=== PATIENT | male | born 1955 | race Caucasian/White ===

== ENCOUNTER 2019-05-22 21:00 | Inpatient (IN) | payer MEDICARE ==
[~2019-05-22] VITALS: Ht 170.2 cm; Wt 102.1 kg
[2019-05-22 21:10] VITALS: BP 141/49
--- NOTE | 2019-05-22 21:33 | Emergency Room Report ---
History of Present Illness General Chief Complaint: Altered Level of Consciousness Source: EMS Present Illness HPI Disclaimer: Please note that this report is being documented using [employer] technology. This can lead to erroneous entry secondary to incorrect interpretation by the dictating instrument. HPI: 63-year-old male presents for altered mental status. EMS was called by patient's . She told them that he has been altered since this morning. Increasingly more confused. She found him on the ground having apparently rolled off of his bed prior to arrival. He is normally alert and oriented x3. He currently moaning incomprehensively though can follow some commands. He has a abrasion over the left side of his forehead but this appears to be healing and old possibly from prior injury. denied any recent fever, vomiting, diarrhea or complaints of pain or discomfort. Cannot obtain any history from patient. PMH: Cannot obtain from patient PSH: Cannot obtain from patient Allergies: Cannot obtain from patient Social Hx: Cannot obtain from patient COVID-19 risk:Contact w/high r: No COVID-19 risk:Travel to affect: No Has patient experienced chapin: No Allergies: Coded Allergies: No Known Allergies (Unverified , 05/22/19) Nursing Documentation-PMH Hx Hypertension: Yes Hx Diabetes: Yes Review of Systems All Other Systems: limited - Cannot obtain from patient Physical Exam Vital Signs Date Time Temp Pulse Resp B/P (MAP) Pulse Ox O2 Delivery O2 Flow Rate FiO2 05/22/19 21:01 97.5 118 18 141/49 (79) 97 Room Air General: Awake, following some commands, moaning incomprehensively, afebrile HEENT: Normocephalic. Abrasion over the left forehead appears to be healing. No acute appearing wounds, lacerations or abrasions. EOMI. anicteric sclera. Dry mucous membranes Neck: Supple, trachea midline Chest Wall: No tenderness, no deformity Cardiovascular: Tachycardic. S1 and S2 normal. No murmur appreciated Resp: Normal work of breathing. No cough, wheezing or crackles appreciated Abdomen: Abdomen is soft, nondistended. Nontender Skin: Intact. Healing abrasion over the left side of the forehead MSK: Normal tone and bulk. Moving all extremities. No obvious deformity. Neuro: Awake, oriented to self. Can follow some simple commands. Not responding verbally. Moaning mostly. Back/Spine: No midline tenderness in the cervical, thoracic or lumbosacral spine. Procedures Critical Care Time Critical Care Time Total critical care time: Approximately 45 minutes Due to a high probability of clinically significant, life threatening deterioration, the patient required the highest level of preparedness to intervene emergently and I personally spent this critical care time directly and personally managing the patient. This critical care time included obtaining a history, examining the patient, pulse oximetry, ordering and reviewing studies , ordering treatments, evaluating response to treatment and updating management plan as needed, frequent reassessment and discussion with other providers as well as arranging for ultimate disposition. This critical to care time was performed to assess and manage the high probability of life-threatening deterioration that could result in multiorgan failure. This critical care time is separate from the separately billable procedures and treating other patients. Medical Decision Making Diagnostic Impression: Primary Impression: Sepsis Additional Impressions: Rhabdomyolysis Elevated LFTs Skin ulcer Substance abuse AMS (altered mental status) ER Course 63-year-old male presents for evaluation of altered mental status. Differential includes was not limited to sepsis, encephalopathy, intoxication, toxicology, electrolyte abnormality, dehydration. Start a broad metabolic infectious toxicologic work-up. He will require a CT scan of the head given the abrasion over the left side of the forehead. Starting 30 cc/kg sepsis bolus. Patient will require admission. Laboratory Tests Test 05/22/19 21:30 05/22/19 22:31 White Blood Count 27.7 K/UL (4.8-10.8) *H Red Blood Count 6.18 M/UL (4.70-6.10) H Hemoglobin 17.5 G/DL (14.2-18.0) Hematocrit 54.7 % (42.0-52.0) H Mean Corpuscular Volume 89 FL (80-99) Mean Corpuscular Hemoglobin 28.4 PG (27.0-31.0) Mean Corpuscular Hemoglobin Concent 32.1 G/DL (32.0-36.0) Red Cell Distribution Width 14.2 % (11.6-14.8) Platelet Count 680 K/UL (150-450) H Mean Platelet Volume 6.4 FL (6.5-10.1) L Neutrophils (%) (Auto) % (45.0-75.0) Lymphocytes (%) (Auto) % (20.0-45.0) Monocytes (%) (Auto) % (1.0-10.0) Eosinophils (%) (Auto) % (0.0-3.0) Basophils (%) (Auto) % (0.0-2.0) Differential Total Cells Counted 100 Neutrophils % (Manual) 85 % (45-75) H Lymphocytes % (Manual) 10 % (20-45) L Monocytes % (Manual) 5 % (1-10) Eosinophils % (Manual) 0 % (0-3) Basophils % (Manual) 0 % (0-2) Band Neutrophils 0 % (0-8) Platelet Estimate Increased H Platelet Morphology Normal Red Blood Cell Morphology Normal Prothrombin Time 10.9 SEC (9.30-11.50) Prothrombin Time INR 1.0 (0.9-1.1) Activated Partial Thromboplast Time 29 SEC (23-33) Sodium Level 143 MMOL/L (136-145) Potassium Level 4.1 MMOL/L (3.5-5.1) Chloride Level 100 MMOL/L (98-107) Carbon Dioxide Level 25 MMOL/L (21-32) Anion Gap 18 mmol/L (5-15) H Blood Urea Nitrogen 63 mg/dL (7-18) H Creatinine 1.4 MG/DL (0.55-1.30) H Estimated Glomerular Filtration Rate 50.9 mL/min (>60) Glucose Level 219 MG/DL (74-106) H Lactic Acid Level 3.10 mmol/L (0.4-2.0) H Calcium Level 10.8 MG/DL (8.5-10.1) H Phosphorus Level 2.8 MG/DL (2.5-4.9) Magnesium Level 3.4 MG/DL (1.8-2.4) H Total Bilirubin 0.9 MG/DL (0.2-1.0) Aspartate Amino Transferase (AST) 439 U/L (15-37) H Alanine Aminotransferase (ALT) 122 U/L (12-78) H Alkaline Phosphatase 108 U/L (46-116) Ammonia < 10 umol/L (11-32) L Total Creatine Kinase 45610 U/L (26-308) H Creatine Kinase MB 57.9 NG/ML (0.0-3.6) H Creatine Kinase MB Relative Index 0.3 Troponin I 0.375 ng/mL (0.000-0.056) Pro-B-Type Natriuretic Peptide 3137 pg/mL (0-125) H Total Protein 10.1 G/DL (6.4-8.2) H Albumin 4.9 G/DL (3.4-5.0) Globulin 5.2 g/dL Albumin/Globulin Ratio 0.9 (1.0-2.7) L Salicylates Level 3.0 ug/mL (2.8-20) Acetaminophen Level < 2 MCG/ML (10-30) L Serum Alcohol < 3 mg/dL Urine Color Pale yellow Urine Appearance Clear Urine pH 5 (4.5-8.0) Urine Specific [place] 1.020 (1.005-1.035) Urine Protein 3+ (NEGATIVE) H Urine Glucose (UA) Negative (NEGATIVE) Urine Ketones 1+ (NEGATIVE) H Urine Blood 5+ (NEGATIVE) H Urine Nitrite Negative (NEGATIVE) Urine Bilirubin Negative (NEGATIVE) Urine Urobilinogen Normal MG/DL (0.0-1.0) Urine Leukocyte Esterase Negative (NEGATIVE) Urine RBC 5-10 /HPF (0 - 0) H Urine WBC 0-2 /HPF (0 - 0) Urine Squamous Epithelial Cells None /LPF (NONE/OCC) Urine Bacteria Few /HPF (NONE) Urine Opiates Screen Positive (NEGATIVE) H Urine Barbiturates Screen Negative (NEGATIVE) Phencyclidine (PCP) Screen Negative (NEGATIVE) Urine Amphetamines Screen Positive (NEGATIVE) H Urine Benzodiazepines Screen Negative (NEGATIVE) Urine Cocaine Screen Negative (NEGATIVE) Urine Marijuana (THC) Screen Positive (NEGATIVE) H Microbiology Date/Time Source Procedure Growth Status 05/22/19 21:30 Nasal Nares - Final Complete 05/22/19 21:30 Nasal Nares - Final Complete EKG Diagnostic Results EKG Time: 21:09 Rate: tachycardiac Rhythm: NSR Other Impression Sinus tachycardia, irregular wandering baseline making it difficult to interpret. RSR prime pattern in V2 V3 consistent with right bundle tico block Rhythm Strip Diag. Results Rhythm Strip Time: 21:09 EP Interpretation: yes Rate: 110s Rhythm: NSR, no PVC's, no ectopy Chest X-Ray Diagnostic Results Chest X-Ray Diagnostic Results : Chest X-Ray Ordered: Yes # of Views/Limited/Complete: 1 View Indication: Other - Altered mental status EP Interpretation: Yes Interpretation: no consolidation, no effusion, no pneumothorax, no acute cardiopulmonary disease, other - Mild haziness bilaterally Impression: No acute disease Electronically Signed by: Electronically signed by Dr. Shimon Barbosa CT/MRI/US Diagnostic Results CT/MRI/US Diagnostic Results : Impression Preliminary Findings Only See Final Report For Complete Findings CT HEAD Without Contrast: Mild to moderate generalized brain atrophy. Mild micro-angiopathic white matter disease. No acute intracranial hemorrhage or space-occupying lesion. Left-sided scalp swelling/hematoma along the frontoparietal bone with no skull fracture. Clear paranasal sinuses and mastoids. Radiologist: Pertona Randhawa MD Study ready at 22:02 and initial results transmitted at 22:07 Reevaluation Time: 22:19 Last Vital Signs Date Time Temp Pulse Resp B/P (MAP) Pulse Ox O2 Delivery O2 Flow Rate FiO2 05/22/19 21:01 97.5 118 18 141/49 (79) 97 Room Air Reevaluation Impression Sepsis reevaluation: I, Dr. Shimon Barbosa, reevaluated the patient at 2330 Capillary refill: Less than 2 seconds Heart rate: 105 Respiratory rate: 18 Initial Lactate: 3.1 Repeat Lactate: No signs of fluid overload Labs show significantly elevated white count of 27.7, hemoconcentration, elevated lactate, elevated BUN and creatinine and slightly elevated troponin 0 0.375 consistent with sepsis. Received antibiotics and is getting sepsis level fluids. Chest x-ray does not show an obvious consolidation but does show some bilateral congestion. May be a viral syndrome. Influenza is negative. A CT scan of the torso without contrast was performed as the patient complaining of left hip pain and appeared to be complaining of left rib pain. No obvious consolidations or groundglass opacities were noted in the lungs. No obvious fractures noted. Talk screen did show positive for amphetamines, opiates and THC. Patient remains altered. Will admit to the stepdown unit for further treatment. Admit to panel physician. Disposition: ADMITTED INPATIENT Condition: Serious Shimon Barbosa MD May 22, 2019 21:33
[2019-05-22 21:52] LABS: HEMATOCRIT 54.7 % (42.0-52.0); HEMOGLOBIN 17.5 G/DL (14.2-18.0); MEAN CORPUSCULAR VOLUME 89 FL (80-99); PLATELET COUNT 680 K/UL (150-450); RED BLOOD COUNT 6.18 M/UL (4.70-6.10); RED CELL DISTRIBUTION WIDTH 14.2 % (11.6-14.8)
[2019-05-22 21:58] LABS: WHITE BLOOD COUNT 27.7 K/UL (4.8-10.8)
[2019-05-22] MEDS ORDERED: Piperacillin/Tazobactam 3.375 GM in NS 110 ML IVPB ONE (22:00)
[2019-05-22] MEDS ORDERED: Vancomycin 1 GM in NS 275 ML IVPB ONE (22:00)
[2019-05-22 22:04] LABS: ANION GAP 18 mmol/L (5-15); BLOOD UREA NITROGEN 63 mg/dL (7-18); CALCIUM 10.8 MG/DL (8.5-10.1); CARBON DIOXIDE 25 MMOL/L (21-32); CHLORIDE 100 MMOL/L (98-107); CREATININE 1.4 MG/DL (0.55-1.30); POTASSIUM 4.1 MMOL/L (3.5-5.1); SODIUM 143 MMOL/L (136-145)
--- NOTE | 2019-05-22 22:08 | Diagnostic Imaging Report ---
Indication: Headache Technique: Contiguous 5 mm thick transaxial imaging of the head obtained in a Siemens Sensation [address] scanner. Soft tissue and bone windows generated. Automatic Exposure Control was utilized. Total Dose length Product (DLP): 1125.7mGycm CT Dose Index Volume (CTDIvol): 53.4 mGy Comparison: none Findings: There is mild prominence of the ventricles, basal cisterns, and cerebral sulci consistent with atrophy. Mild, nonspecific, white matter hypoattenuation is noted throughout the brain consistent with chronic small vessel disease. There is no midline shift, edema, acute hemorrhage, mass effect, or abnormal extra-axial fluid collections. Bones are unremarkable. Impression: No acute intracranial bleed, mass effect or edema. Mild atrophy of the brain. Nonspecific white matter hypoattenuation probably due to chronic small vessel disease. [facility] has communicated the preliminary results to the Emergency Department. Their findings are largely concordant with this report. The CT scanner at [facility] is accredited by the [employer] and the scans are performed using dose optimization techniques as appropriate to a performed exam including Automatic Exposure control.
[2019-05-22 22:10] LABS: AMMONIA < 10 umol/L (11-32)
[2019-05-22 22:33] LABS: ALANINE AMINOTRANSFERASE 122 U/L (12-78); ALBUMIN 4.9 G/DL (3.4-5.0); ALBUMIN/GLOBULIN RATIO 0.9 (1.0-2.7); ALKALINE PHOSPHATASE 108 U/L (46-116); ASPARTATE AMINO TRANSFERASE 439 U/L (15-37); BILIRUBIN,TOTAL 0.9 MG/DL (0.2-1.0); CKMB 57.9 NG/ML (0.0-3.6); CREATINE KINASE 15532 U/L (26-308); PHOSPHORUS 2.8 MG/DL (2.5-4.9)
[2019-05-22 22:49] LABS: APPEARANCE,URINE CLEAR; BILIRUBIN, URINE NEGATIVE (NEGATIVE); COLOR,URINE PALE YELLOW; GLUCOSE, URINE (UA) NEGATIVE (NEGATIVE); KETONES,URINE 1+ (NEGATIVE); LEUKOCYTE ESTERASE ,URINE NEGATIVE (NEGATIVE); NITRITE,URINE NEGATIVE (NEGATIVE); PH,URINE 5 (4.5-8.0); PROTEIN,URINE 3+ (NEGATIVE); UROBILINOGEN,URINE NORMAL MG/DL (0.0-1.0)
[2019-05-22] MEDS ORDERED: BACLOFEN20 MG ORAL ×2 (23:33→23:39)
[2019-05-22] MEDS ORDERED: ADDERALL 30 MG30 MG ORAL (23:33)
[2019-05-22] MEDS ORDERED: LOTREL 5-20 MG1 EACH ORAL (23:39)
[2019-05-22] MEDS ORDERED: METFORMIN HCL500 M1 ORAL (23:39)
[2019-05-22] MEDS ORDERED: HYDROCODON-ACE1 EA13 ORAL (23:39)
[2019-05-22] MEDS ORDERED: DESVENLAFAXINE100 MG ORAL (23:42)
--- NOTE | 2019-05-22 23:42 | Diagnostic Imaging Report ---
INDICATION: Abdominal and chest pain TECHNIQUE: Continuous helical transaxial imaging of the chest, abdomen and pelvis was obtained from the thoracic inlet to the pubic symphysis. No IV contrast was administered. Coronal 2-D reformats were also obtained. Study obtained in a Siemens sensation [address] Total Dose length Product (DLP): 818.[address] Dose Index Volume (CTDIvol): 11.8 mGy COMPARISON: None FINDINGS: CT CHEST: There is breathing motion limiting evaluation. There is a small patch of groundglass opacity in the lingula. The lungs are clear otherwise. No mediastinal or hilar adenopathy are identified. Aorta is mildly calcified. No pleural or pericardial effusions are identified. The heart is unremarkable. CT ABDOMEN/PELVIS: There is a 2.4 x 3.3 cm low-density left adrenal mass. There is no free fluid. Bowel gas pattern appears normal. No abnormalities of solid organs appreciated. No nephrolithiasis or hydronephrosis appreciated. Bladder is unremarkable. There are small bilateral inguinal hernias containing fat IMPRESSION: Lingular infiltrate suspected. Correlate clinically. Evaluation limited by motion. 3.3 x 2.4 cm left adrenal mass. This may be an adenoma and may be confirmed by MR. Arterial vascular disease Small bilateral inguinal hernias containing fat The CT scanner at [facility] is accredited by the [employer] and the scans are performed using dose optimization techniques as appropriate to a performed exam including Automatic Exposure control.
[2019-05-22] MEDS ORDERED: SYNTHROID300 MCG ORAL (23:43)
[2019-05-23] VITALS: BP 135/72
[2019-05-23 04:00] VITALS: BP 127/78
[2019-05-23 05:17] LABS: HEMATOCRIT 40.4 % (42.0-52.0); HEMOGLOBIN 13.8 G/DL (14.2-18.0); MEAN CORPUSCULAR VOLUME 86 FL (80-99); PLATELET COUNT 457 K/UL (150-450); RED BLOOD COUNT 4.69 M/UL (4.70-6.10); RED CELL DISTRIBUTION WIDTH 13.1 % (11.6-14.8)
[2019-05-23 05:58] LABS: WHITE BLOOD COUNT 25.2 K/UL (4.8-10.8)
[2019-05-23 06:10] LABS: ANION GAP 15 mmol/L (5-15); BLOOD UREA NITROGEN 45 mg/dL (7-18); CALCIUM 8.9 MG/DL (8.5-10.1); CARBON DIOXIDE 22 MMOL/L (21-32); CHLORIDE 111 MMOL/L (98-107); CREATINE KINASE 6923 U/L (26-308); CREATININE 1.1 MG/DL (0.55-1.30); PHOSPHORUS 2.2 MG/DL (2.5-4.9); POTASSIUM 3.2 MMOL/L (3.5-5.1); SODIUM 147 MMOL/L (136-145)
[2019-05-23] MEDS ORDERED: NovoLOG Insulin Flexpen SUBQ SCH ×2 (06:30)
[2019-05-23] MEDS: NovoLOG Insulin Flexpen SUBQ SCH ×4 (06:30→20:14)
[2019-05-23 08:00] VITALS: BP 120/74
--- NOTE | 2019-05-23 08:13 | History and Physical ---
History of Present Illness General Date patient seen: May 23, 2019 Time patient seen: 08:00 Reason for Hospitalization: Altered Level of ConsciousnessRhabdomyolysis Present Illness HPI Patient is a 63 YO gentleman with Narcolepsy, Non-insulin dependant type II DM, hypothyroidism, chronic back pain, prior history of drug addiction presenting with AMS after GLF. Patient is alert but disoriented and unable to verbalize words. History is obtained from the (Joyce) on the phone. Per the , prior to admission, patient slept for 2 days without eating or drinking. She reports that patient was found down on the floor covered in urine and fecal matter with also evidence of bleeding from the head. He had apparently fallen from the bed. The fall was not witnessed but per the , patient could have been on the ground for more than 24 hours. The reports that patient has been suffering from narcolepsy for years and every 2 months he goes through a period where he sleeps for 2-3 days without waking up. At his baseline, patient is alert and oriented but during such episodes he becomes disoriented and would speak gibberish and non-sense. Despite taking his prescribed Adderall, patient continues to experience such prolonged sleeping episodes. It is also reported that patient suffers from chronic back pain and since 2007 ( after undergoing spinal fusion) he has been using walker to ambulate around the house. He has to use wheelchair outside of the house. Patient's adds that he used to suffer from polysubstance abuse including cocaine, alcohol and benzodiazepines but he has been clean since 3 years ago. He takes prescribed opiates for his chronic back pain. The adds that 2 weeks ago patient was diagnosed with oral thrush for which he was evaluated at local and prescribed with PO antifungal. There is no report of CP, SOB, N/V/D/F/C. No reports of sick contacts or recent travel. Allergies: Coded Allergies: No Known Allergies (Unverified , 05/22/19) Medication History Scheduled Amlodipine Besylate/Benazepril 5-20 Mg (Lotrel 5-20 Mg Capsule*), 1 CAP ORAL DAILY, (Reported) Amphet Asp/Amphet/D-Amphet (Adderall 30 Mg Tablet), 30 MG ORAL DAILY, (Reported) Baclofen* (Lioresal*), 20 MG ORAL PRN, (Reported) Baclofen* (Lioresal*), 20 MG ORAL PRN, (Reported) Desvenlafaxine (Desvenlafaxine Er), 100 MG ORAL DAILY, (Reported) Hydrocodone Bit/Acetaminophen 10-325* (Hydrocodon-Acetaminophn 10-325*), 1 TAB ORAL Q6H, (Reported) Levothyroxine Sodium (Synthroid), 300 MCG ORAL DAILY, (Reported) Metformin Hcl* (Metformin Hcl*), 500 MG ORAL TWICE A DAY, (Reported) Patient History History Provided By: Family Member Healthcare decision maker PT self Resuscitation status Full Code Advanced Directive on File Past Medical/Surgical History Past Medical/Surgical History: (1) Depressive disorder (2) Chronic back pain (3) Diabetes (4) Narcolepsy (5) Hypothyroidism (6) Substance abuse Review of Systems ROS Narrative UNABLE TO OBTAIN. PATIENT ALERT BUT NOT ORIENTED. Physical Exam General Appearance: alert, lethargic, confused, mild distress, other - disheveled. HEENT: mucous membranes moist, PERRL, EOMI, other - Contusion of the left temporal area. Neck: non-tender, supple Respiratory/Chest: chest wall non-tender, lungs clear, no respiratory distress , no accessory muscle use Cardiovascular/Chest: normal peripheral pulses, normal rate, regular rhythm, regularly irregular, no gallop/murmur, no JVD Abdomen: normal bowel sounds, non tender, soft, no organomegaly, no mass Genitourinary/Rectal: perry Extremities: no calf tenderness, no edema, trace edema, other - signs of old bruising in the bilateral lower extremities. Skin Exam: warm/dry, no diaphoresis, other - echymosis in the lower extremities Neurologic: alert, disoriented, aphasia Musculoskeletal: normal muscle bulk Last 24 Hour Vital Signs Date Time Temp Pulse Resp B/P (MAP) Pulse Ox O2 Delivery O2 Flow Rate FiO2 05/23/19 04:00 98.3 99 19 127/78 (94) 98 05/23/19 04:00 Room Air 05/23/19 04:00 110 05/23/19 00:57 Room Air 05/23/19 00:00 113 05/23/19 00:00 97.7 103 19 135/72 (93) 99 05/22/19 23:50 99.1 118 18 141/49 97 Room Air 05/22/19 21:10 118 18 Room Air 05/22/19 21:10 99.1 118 18 141/49 97 Room Air 05/22/19 21:01 97.5 118 18 141/49 (79) 97 Room Air Intake and Output 05/22/19 05/23/19 19:00 07:00 Intake Total 525 ml Output Total 400 ml Balance 125 ml Intake IV Total 525 ml Output Urine Total 400 ml Laboratory Tests Test 05/22/19 21:30 05/22/19 22:31 05/22/19 23:20 05/22/19 23:30 White Blood Count 27.7 K/UL (4.8-10.8) *H Red Blood Count 6.18 M/UL (4.70-6.10) H Hemoglobin 17.5 G/DL (14.2-18.0) Hematocrit 54.7 % (42.0-52.0) H Mean Corpuscular Volume 89 FL (80-99) Mean Corpuscular Hemoglobin 28.4 PG (27.0-31.0) Mean Corpuscular Hemoglobin Concent 32.1 G/DL (32.0-36.0) Red Cell Distribution Width 14.2 % (11.6-14.8) Platelet Count 680 K/UL (150-450) H Mean Platelet Volume 6.4 FL (6.5-10.1) L Neutrophils (%) (Auto) % (45.0-75.0) Lymphocytes (%) (Auto) % (20.0-45.0) Monocytes (%) (Auto) % (1.0-10.0) Eosinophils (%) (Auto) % (0.0-3.0) Basophils (%) (Auto) % (0.0-2.0) Differential Total Cells Counted 100 Neutrophils % (Manual) 85 % (45-75) H Lymphocytes % (Manual) 10 % (20-45) L Monocytes % (Manual) 5 % (1-10) Eosinophils % (Manual) 0 % (0-3) Basophils % (Manual) 0 % (0-2) Band Neutrophils 0 % (0-8) Platelet Estimate Increased H Platelet Morphology Normal Red Blood Cell Morphology Normal Prothrombin Time 10.9 SEC (9.30-11.50) Prothromb Time International Ratio 1.0 (0.9-1.1) Activated Partial Thromboplast Time 29 SEC (23-33) Sodium Level 143 MMOL/L (136-145) Potassium Level 4.1 MMOL/L (3.5-5.1) Chloride Level 100 MMOL/L (98-107) Carbon Dioxide Level 25 MMOL/L (21-32) Anion Gap 18 mmol/L (5-15) H Blood Urea Nitrogen 63 mg/dL (7-18) H Creatinine 1.4 MG/DL (0.55-1.30) H Estimat Glomerular Filtration Rate 50.9 mL/min (>60) Glucose Level 219 MG/DL (74-106) H Lactic Acid Level 3.10 mmol/L (0.4-2.0) H 2.80 mmol/L (0.66-2.22) H Calcium Level 10.8 MG/DL (8.5-10.1) H Phosphorus Level 2.8 MG/DL (2.5-4.9) Magnesium Level 3.4 MG/DL (1.8-2.4) H Total Bilirubin 0.9 MG/DL (0.2-1.0) Aspartate Amino Transf (AST/SGOT) 439 U/L (15-37) H Alanine Aminotransferase (ALT/SGPT) 122 U/L (12-78) H Alkaline Phosphatase 108 U/L (46-116) Ammonia < 10 umol/L (11-32) L Total Creatine Kinase 89385 U/L (26-308) H Creatine Kinase MB 57.9 NG/ML (0.0-3.6) H Creatine Kinase MB Relative Index 0.3 Troponin I 0.375 ng/mL (0.000-0.056) 0.319 ng/mL (0.000-0.056) Pro-B-Type Natriuretic Peptide 3137 pg/mL (0-125) H Total Protein 10.1 G/DL (6.4-8.2) H Albumin 4.9 G/DL (3.4-5.0) Globulin 5.2 g/dL Albumin/Globulin Ratio 0.9 (1.0-2.7) L Salicylates Level 3.0 ug/mL (2.8-20) Acetaminophen Level < 2 MCG/ML (10-30) L Serum Alcohol < 3 mg/dL Urine Color Pale yellow Urine Appearance Clear Urine pH 5 (4.5-8.0) Urine Specific [place] 1.020 (1.005-1.035) Urine Protein 3+ (NEGATIVE) H Urine Glucose (UA) Negative (NEGATIVE) Urine Ketones 1+ (NEGATIVE) H Urine Blood 5+ (NEGATIVE) H Urine Nitrite Negative (NEGATIVE) Urine Bilirubin Negative (NEGATIVE) Urine Urobilinogen Normal MG/DL (0.0-1.0) Urine Leukocyte Esterase Negative (NEGATIVE) Urine RBC 5-10 /HPF (0 - 0) H Urine WBC 0-2 /HPF (0 - 0) Urine Squamous Epithelial Cells None /LPF (NONE/OCC) Urine Bacteria Few /HPF (NONE) Urine Opiates Screen Positive (NEGATIVE) H Urine Barbiturates Screen Negative (NEGATIVE) Phencyclidine (PCP) Screen Negative (NEGATIVE) Urine Amphetamines Screen Positive (NEGATIVE) H Urine Benzodiazepines Screen Negative (NEGATIVE) Urine Cocaine Screen Negative (NEGATIVE) Urine Marijuana (THC) Screen Positive (NEGATIVE) H Test 05/23/19 04:20 White Blood Count 25.2 K/UL (4.8-10.8) *H Red Blood Count 4.69 M/UL (4.70-6.10) L Hemoglobin 13.8 G/DL (14.2-18.0) L Hematocrit 40.4 % (42.0-52.0) L Mean Corpuscular Volume 86 FL (80-99) Mean Corpuscular Hemoglobin 29.5 PG (27.0-31.0) Mean Corpuscular Hemoglobin Concent 34.3 G/DL (32.0-36.0) Red Cell Distribution Width 13.1 % (11.6-14.8) Platelet Count 457 K/UL (150-450) H Mean Platelet Volume 5.3 FL (6.5-10.1) L Neutrophils (%) (Auto) % (45.0-75.0) Lymphocytes (%) (Auto) % (20.0-45.0) Monocytes (%) (Auto) % (1.0-10.0) Eosinophils (%) (Auto) % (0.0-3.0) Basophils (%) (Auto) % (0.0-2.0) Neutrophils % (Manual) Pending Lymphocytes % (Manual) Pending Platelet Estimate Pending Platelet Morphology Pending Sodium Level 147 MMOL/L (136-145) H Potassium Level 3.2 MMOL/L (3.5-5.1) L Chloride Level 111 MMOL/L (98-107) H Carbon Dioxide Level 22 MMOL/L (21-32) Anion Gap 15 mmol/L (5-15) Blood Urea Nitrogen 45 mg/dL (7-18) H Creatinine 1.1 MG/DL (0.55-1.30) Estimat Glomerular Filtration Rate > 60 mL/min (>60) Glucose Level 183 MG/DL (74-106) H Lactic Acid Level 1.70 mmol/L (0.4-2.0) Calcium Level 8.9 MG/DL (8.5-10.1) Phosphorus Level 2.2 MG/DL (2.5-4.9) L Magnesium Level 2.6 MG/DL (1.8-2.4) H Total Creatine Kinase 6923 U/L (26-308) H Microbiology Date/Time Source Procedure Growth Status 05/22/19 21:30 Nasal Nares - Final Complete 05/22/19 21:30 Nasal Nares - Final Complete Height (Feet): 5 Height (Inches): 7.00 Weight (Pounds): 150 Medications Current Medications Medications (Trade) Dose Ordered Sig/Syd Route PRN Reason Start Time Stop Time Status Last Admin Dose Admin Dextrose (Dextrose 50%) 25 ml Q30M PRN IV Hypoglycemia 05/23/19 01:30 08/21/19 01:29 Dextrose (Dextrose 50%) 50 ml Q30M PRN IV Hypoglycemia 05/23/19 01:30 08/21/19 01:29 Insulin Aspart (NovoLOG) BEFORE MEALS AND HS SUBQ 05/23/19 06:30 08/21/19 06:29 Levothyroxine Sodium (Synthroid) 300 mcg DAILY@0630 ORAL 05/23/19 06:30 06/22/19 06:29 05/23/19 06:48 Sodium Chloride 1,000 ml @ 175 mls/hr Q5H43M IV 05/23/19 01:30 06/22/19 01:29 05/23/19 06:48 Assessment/Plan Assessment/Plan: 63 YO M with hx of narcolepsy, chronic back pain, hypothyroidism, and diabetes mellitus presenting with GLF and AMS after 2-day period of prolonged sleeping episode. In the ED, patient was found to be clinically dehydrated and the medical work up was suggestive of rhabdomyolysis (CK> 47411) and Leukocytosis (WBC: 20066) Patient is being admitted for further observation and medical management. #GLF: -CTH suggestive of left sided scalp hematoma; No evidence of intracranial bleed. -CT Chest/Abdomen/Pelvis non suggestive of any signs of intraabdominal bleed/ rib fracture -Brain and cervical MRI ordered. will follow up the results. #Rhabdomyolysis #BETSY #Dehydration #Poor oral intake -Serum CK :30656>>6900 -Serum Cr-: 1.4>>1.1 -s/p 3L of IV N.S in the ED. -Initially on 150cc/hr of IV N.S; Given improvement in the CK level, will lower the rate to 75 cc/hr. -Encourage PO intake. -Continue to monitor the CK level. -Strict I's and O's -Avoid nephrotoxins -Dr. Boswell of nephrology consulted. Appreciate further recommendations. #Leukocytosis: -Infectious vs. hemoconcentration effect in the setting of severe Dehydration -WBC:27>>25 -No fever or signs of infection on CT C/A/P -Influenza swab negative. -UA with reflex to culture. -Blood culture x 2. -Will initiate empiric treatment with Vancomycin and Zosyn -Dr. Nithin Patterson of ID consulted. Appreciate further recommendations. #Lactic acidosis: -Serum lactic acid levels:3.1>>2.8>>1.7 -Likely secondary to poor tissue perfusion in the setting of severe dehydration. However, underlying infection yet to be ruled out. #Elevated troponin: -Likely 2/2 demand ischemia in the setting of severe dehydration. -Serum Troponin 0.375 -EKG non-suggestive of any ST segment or T wave abnormalities. -Continuous cardiac monitoring. -Continue to trend troponin levels. #type II DM: -Diabetic diet. -Insulin Sliding scale. #Hx of Narcolepsy: -Hold home Adderall in the setting of BETSY -Continue to monitor. -Avoid sedatives. -Fall precaution. #Hx of Depression: -Resume home medication. #chronic back pain: -Resume home medication. -PT/OT once more stable. #Hypothyroidism: -Resume home levothyroxine. Fluid: IV N.S 75 cc/hr Electrolyte: Monitor and replete PRN Nutrition: Diabetic Diet. DVT PPX: SUb Q Heparin. Philippe Luis MD. Internal Medicine. Philippe Luis M.D. May 23, 2019 08:13
[2019-05-23 12:00] VITALS: BP 124/65
--- NOTE | 2019-05-23 12:17 | Diagnostic Imaging Report ---
Indication: Dyspnea Comparison: None A single view chest radiograph was obtained. Findings: Cardiomediastinal appearance is within normal limits for age. The lungs are clear. Pulmonary vascularity is appropriate. The diaphragmatic contour is smooth and costophrenic angles are sharp. No pleural effusions are identified. The bones are unremarkable. Impression: No acute findings
--- NOTE | 2019-05-23 12:34 | Infectious Diseases Prog Note ---
Assessment/Plan Assessment/Plan Full consult dictated: A) 1) possible sepsis, leukocytosis, possible pna, infiltrate seen on CT chest, hx thrush 2) fall, w/u per primary, scalp hematoma 3) pmh noted P) 1) zosyn and vancomycin 2) f/u on cultures, labs and chest x-ray 3) thank you Subjective Allergies: Coded Allergies: No Known Allergies (Unverified , 05/22/19) Objective Vital Signs Last 24 Hour Vital Signs Date Time Temp Pulse Resp B/P (MAP) Pulse Ox O2 Delivery O2 Flow Rate FiO2 05/23/19 08:00 98.1 116 21 120/74 (89) 97 05/23/19 08:00 Room Air 05/23/19 07:43 106 05/23/19 04:00 98.3 99 19 127/78 (94) 98 05/23/19 04:00 Room Air 05/23/19 04:00 110 05/23/19 00:57 Room Air 05/23/19 00:00 113 05/23/19 00:00 97.7 103 19 135/72 (93) 99 05/22/19 23:50 99.1 118 18 141/49 97 Room Air 05/22/19 21:10 118 18 Room Air 05/22/19 21:10 99.1 118 18 141/49 97 Room Air 05/22/19 21:01 97.5 118 18 141/49 (79) 97 Room Air Height (Feet): 5 Height (Inches): 7.00 Weight (Pounds): 150 Microbiology Date/Time Source Procedure Growth Status 05/22/19 21:30 Nasal Nares - Final Complete 05/22/19 21:30 Nasal Nares - Final Complete Laboratory Tests Test 05/22/19 21:30 05/22/19 22:31 05/22/19 23:20 05/22/19 23:30 White Blood Count 27.7 K/UL (4.8-10.8) *H Red Blood Count 6.18 M/UL (4.70-6.10) H Hemoglobin 17.5 G/DL (14.2-18.0) Hematocrit 54.7 % (42.0-52.0) H Mean Corpuscular Volume 89 FL (80-99) Mean Corpuscular Hemoglobin 28.4 PG (27.0-31.0) Mean Corpuscular Hemoglobin Concent 32.1 G/DL (32.0-36.0) Red Cell Distribution Width 14.2 % (11.6-14.8) Platelet Count 680 K/UL (150-450) H Mean Platelet Volume 6.4 FL (6.5-10.1) L Neutrophils (%) (Auto) % (45.0-75.0) Lymphocytes (%) (Auto) % (20.0-45.0) Monocytes (%) (Auto) % (1.0-10.0) Eosinophils (%) (Auto) % (0.0-3.0) Basophils (%) (Auto) % (0.0-2.0) Differential Total Cells Counted 100 Neutrophils % (Manual) 85 % (45-75) H Lymphocytes % (Manual) 10 % (20-45) L Monocytes % (Manual) 5 % (1-10) Eosinophils % (Manual) 0 % (0-3) Basophils % (Manual) 0 % (0-2) Band Neutrophils 0 % (0-8) Platelet Estimate Increased H Platelet Morphology Normal Red Blood Cell Morphology Normal Prothrombin Time 10.9 SEC (9.30-11.50) Prothromb Time International Ratio 1.0 (0.9-1.1) Activated Partial Thromboplast Time 29 SEC (23-33) Sodium Level 143 MMOL/L (136-145) Potassium Level 4.1 MMOL/L (3.5-5.1) Chloride Level 100 MMOL/L (98-107) Carbon Dioxide Level 25 MMOL/L (21-32) Anion Gap 18 mmol/L (5-15) H Blood Urea Nitrogen 63 mg/dL (7-18) H Creatinine 1.4 MG/DL (0.55-1.30) H Estimat Glomerular Filtration Rate 50.9 mL/min (>60) Glucose Level 219 MG/DL (74-106) H Lactic Acid Level 3.10 mmol/L (0.4-2.0) H 2.80 mmol/L (0.66-2.22) H Calcium Level 10.8 MG/DL (8.5-10.1) H Phosphorus Level 2.8 MG/DL (2.5-4.9) Magnesium Level 3.4 MG/DL (1.8-2.4) H Total Bilirubin 0.9 MG/DL (0.2-1.0) Aspartate Amino Transf (AST/SGOT) 439 U/L (15-37) H Alanine Aminotransferase (ALT/SGPT) 122 U/L (12-78) H Alkaline Phosphatase 108 U/L (46-116) Ammonia < 10 umol/L (11-32) L Total Creatine Kinase 84405 U/L (26-308) H Creatine Kinase MB 57.9 NG/ML (0.0-3.6) H Creatine Kinase MB Relative Index 0.3 Troponin I 0.375 ng/mL (0.000-0.056) 0.319 ng/mL (0.000-0.056) Pro-B-Type Natriuretic Peptide 3137 pg/mL (0-125) H Total Protein 10.1 G/DL (6.4-8.2) H Albumin 4.9 G/DL (3.4-5.0) Globulin 5.2 g/dL Albumin/Globulin Ratio 0.9 (1.0-2.7) L Salicylates Level 3.0 ug/mL (2.8-20) Acetaminophen Level < 2 MCG/ML (10-30) L Serum Alcohol < 3 mg/dL Urine Color Pale yellow Urine Appearance Clear Urine pH 5 (4.5-8.0) Urine Specific [place] 1.020 (1.005-1.035) Urine Protein 3+ (NEGATIVE) H Urine Glucose (UA) Negative (NEGATIVE) Urine Ketones 1+ (NEGATIVE) H Urine Blood 5+ (NEGATIVE) H Urine Nitrite Negative (NEGATIVE) Urine Bilirubin Negative (NEGATIVE) Urine Urobilinogen Normal MG/DL (0.0-1.0) Urine Leukocyte Esterase Negative (NEGATIVE) Urine RBC 5-10 /HPF (0 - 0) H Urine WBC 0-2 /HPF (0 - 0) Urine Squamous Epithelial Cells None /LPF (NONE/OCC) Urine Bacteria Few /HPF (NONE) Urine Opiates Screen Positive (NEGATIVE) H Urine Barbiturates Screen Negative (NEGATIVE) Phencyclidine (PCP) Screen Negative (NEGATIVE) Urine Amphetamines Screen Positive (NEGATIVE) H Urine Benzodiazepines Screen Negative (NEGATIVE) Urine Cocaine Screen Negative (NEGATIVE) Urine Marijuana (THC) Screen Positive (NEGATIVE) H Test 05/23/19 04:20 3/24/20 04:30 White Blood Count 25.2 K/UL (4.8-10.8) *H Red Blood Count 4.69 M/UL (4.70-6.10) L Hemoglobin 13.8 G/DL (14.2-18.0) L Hematocrit 40.4 % (42.0-52.0) L Mean Corpuscular Volume 86 FL (80-99) Mean Corpuscular Hemoglobin 29.5 PG (27.0-31.0) Mean Corpuscular Hemoglobin Concent 34.3 G/DL (32.0-36.0) Red Cell Distribution Width 13.1 % (11.6-14.8) Platelet Count 457 K/UL (150-450) H Mean Platelet Volume 5.3 FL (6.5-10.1) L Neutrophils (%) (Auto) % (45.0-75.0) Lymphocytes (%) (Auto) % (20.0-45.0) Monocytes (%) (Auto) % (1.0-10.0) Eosinophils (%) (Auto) % (0.0-3.0) Basophils (%) (Auto) % (0.0-2.0) Differential Total Cells Counted 100 Neutrophils % (Manual) 86 % (45-75) H Lymphocytes % (Manual) 5 % (20-45) L Monocytes % (Manual) 9 % (1-10) Eosinophils % (Manual) 0 % (0-3) Basophils % (Manual) 0 % (0-2) Band Neutrophils 0 % (0-8) Platelet Estimate Adequate Platelet Morphology Normal Sodium Level 147 MMOL/L (136-145) H Potassium Level 3.2 MMOL/L (3.5-5.1) L Chloride Level 111 MMOL/L (98-107) H Carbon Dioxide Level 22 MMOL/L (21-32) Anion Gap 15 mmol/L (5-15) Blood Urea Nitrogen 45 mg/dL (7-18) H Creatinine 1.1 MG/DL (0.55-1.30) Estimat Glomerular Filtration Rate > 60 mL/min (>60) Glucose Level 183 MG/DL (74-106) H Lactic Acid Level 1.70 mmol/L (0.4-2.0) Calcium Level 8.9 MG/DL (8.5-10.1) Phosphorus Level 2.2 MG/DL (2.5-4.9) L Magnesium Level 2.6 MG/DL (1.8-2.4) H Total Creatine Kinase 6923 U/L (26-308) H Troponin I 0.339 ng/mL (0.000-0.056) Current Medications Medications (Trade) Dose Ordered Sig/Ysd Route PRN Reason Start Time Stop Time Status Last Admin Dose Admin Dextrose (Dextrose 50%) 25 ml Q30M PRN IV Hypoglycemia 05/23/19 01:30 08/21/19 01:29 Dextrose (Dextrose 50%) 50 ml Q30M PRN IV Hypoglycemia 05/23/19 01:30 08/21/19 01:29 Heparin Sodium (Porcine) (Heparin 5000 units/ml) 5,000 units EVERY 12 HOURS SUBQ 05/23/19 12:00 07/07/19 11:59 Insulin Aspart (NovoLOG) BEFORE MEALS AND HS SUBQ 05/23/19 06:30 08/21/19 06:29 Levothyroxine Sodium (Synthroid) 300 mcg DAILY@0630 ORAL 05/23/19 06:30 06/22/19 06:29 05/23/19 06:48 Piperacillin Sod/ Tazobactam Sod 3.375 gm/Sodium Chloride 110 ml @ 27.5 mls/hr EVERY 8 HOURS IVPB 05/23/19 14:00 05/28/19 13:59 Sodium Chloride 1,000 ml @ 75 mls/hr [id number] IV 05/23/19 11:00 06/22/19 10:59 Vancomycin HCl (Vanco rx to dose) 1 ea DAILY PRN MISC Per rx protocol 05/23/19 10:30 06/22/19 10:29 Vancomycin HCl 750 mg/Sodium Chloride 275 ml @ 183.333 mls/hr Q12H IVPB 05/23/19 12:00 05/28/19 11:59 Stu Fitch MD May 23, 2019 12:34
[2019-05-23] MEDS: Vancomycin 750mg/NS 275ml IVPB SCH ×4 (12:45→23:46)
[2019-05-23] MEDS: Heparin 5000 units/ml inj SUBQ SCH ×2 (12:47→20:14)
[2019-05-23] MEDS: Piperacillin/Tazobactam 3.375 GM in NS 110 ML IVPB SCH ×2 (14:31→21:02)
--- NOTE | 2019-05-23 14:37 | Diagnostic Imaging Report ---
Indication: Head trauma. Headache Technique: The head was imaged in a 1.5 [place] magnet. Sequences obtained include sagittal and axial T1 FLAIR, axial T2 fast spin echo with fat saturation, axial T2* GRE, axial T2 FLAIR, diffusion and ADC map. Comparison: None Findings: There is mild prominence of the sulci, ventricles, and basal cisterns consistent with atrophy. Mild, nonspecific T2 hyperintensity noted within white matter. This may be due to chronic small vessel disease. There is a small cystic focus adjacent to the left lateral ventricle which may be an old lacunar infarct. There is no restricted diffusion. Stewart-white differentiation is normal. There is no mass effect, midline shift, edema, or hemorrhage. There are no abnormal extra-axial or intra-axial fluid collections. The corpus callosum and sella are unremarkable. The brainstem and cerebellum are unremarkable. Bone marrow signal within the visualized osseous structures appears age appropriate and unremarkable otherwise. Impression: No acute intracranial findings. Mild atrophy and evidence of chronic small vessel disease involving white matter tracts.
--- NOTE | 2019-05-23 14:37 | Consultation ---
Consult Note Consult Note I am consulted by Dr. Luis to evaluate the patient for elevated creatinine and evidence of rhabdomyolysis Patient seen in room 244 Patient is not an accurate historian According to the records: Patient is a 63 YO gentleman with Narcolepsy, Non-insulin dependant type II DM, hypothyroidism, chronic back pain, prior history of drug addiction presenting with AMS after GLF. Patient is alert but disoriented and unable to verbalize words. History is obtained from the (Joyce) on the phone. Per the , prior to admission, patient slept for 2 days without eating or drinking. She reports that patient was found down on the floor covered in urine and fecal matter with also evidence of bleeding from the head. He had apparently fallen from the bed. The fall was not witnessed but per the , patient could have been on the ground for more than 24 hours. The reports that patient has been suffering from narcolepsy for years and every 2 months he goes through a period where he sleeps for 2-3 days without waking up. At his baseline, patient is alert and oriented but during such episodes he becomes disoriented and would speak gibberish and non-sense. Despite taking his prescribed Adderall, patient continues to experience such prolonged sleeping episodes. It is also reported that patient suffers from chronic back pain and since 2007 ( after undergoing spinal fusion) he has been using walker to ambulate around the house. He has to use wheelchair outside of the house. Patient's adds that he used to suffer from polysubstance abuse including cocaine, alcohol and benzodiazepines but he has been clean since 3 years ago. He takes prescribed opiates for his chronic back pain. The adds that 2 weeks ago patient was diagnosed with oral thrush for which he was evaluated at local and prescribed with PO antifungal. There is no report of CP, SOB, N/V/D/F/C. No reports of sick contacts or recent travel. Patient examined Laboratory data reviewed Of importance are leukocytosis, elevated CPK, elevated BUN and creatinine, Assessment/Plan Acute kidney injury, Rhabdomyolysis, Dehydration, Diabetes mellitus type 2 with blood sugar out of control, Chronic pain, substance abuse, Urine positive for amphetamine, opiates, marijuana, Hypothyroidism, Narcolepsy, Plan: IV hydration 100 cc an hour half-normal saline Correct abnormal electrolytes, oral potassium supplements at this time Monitor CPK and renal parameters Keep the blood sugar and blood pressure in check Stool softener Protonix p.o. 2D echocardiogram Flomax at bedtime Per orders Delta Boswell MD May 23, 2019 14:37
[2019-05-23] MEDS ORDERED: Phospha 250 Neutral tab ORAL SCH (14:45)
--- NOTE | 2019-05-23 14:51 | Diagnostic Imaging Report ---
Indication: Neck pain Technique: MRI examination of the cervical spine was performed in a 1.5 [place] magnet. Sequences obtained include sagittal and axial T1 and T2 fast spin echo, and sagittal STIR. Comparison: none Findings: Bone marrow signal: Normal Alignment/curvature: There is reversal of cervical lordosis present within the mid to lower part of the cervical spine. At C5 C6-7 there is susceptibility artifact due to hardware for fusion. Spinal cord: Portions of the cord appear atrophic including the C6-7 C5-6 region. This may be from prior compression or spinal stenosis. In addition there is slightly increased signal within the cord at C6-7 consistent with myelomalacia C1-2: Unremarkable C2-3: Unremarkable. C3-4: Unremarkable. C4-5: There is a minimal anterolisthesis present. There is a prominent right subarticular/foraminal disc protrusion abutting the anterior surface of the cord and narrowing the right neural foramen. The central canal diameter is moderately narrow. The left neural foramen is patent. C5-6: Central canal is patent. Interbody fusion of C5-6 noted. This is not evaluated well due to susceptibility artifact. The neural foramen appear patent. C6-7: The central canal diameter is normal. However the spinal cord appears within in this location which may be from previous myelomalacia resulting in atrophy. There is no foraminal stenosis. C6-7 interbody fusion is likely present but not evaluated well due to artifact. C7-T1: Central canal diameter is normal. There is no foraminal stenosis. There is no disc herniation. Disc height is probably normal. . IMPRESSION: C4-5: Right subarticular/foraminal disc protrusion abutting the anterior surface of the cord and narrowing the right neural foramen. Moderate central spinal stenosis. Status post discectomy and fusion with anterior hardware at C5-6 C6-7 possibly C7-T1. Susceptibility artifact limiting evaluation. Reversal cervical lordosis mid to lower cervical spine. This may be related to hardware abdomen or muscle spasm.
[2019-05-23] MEDS: Nitroglycerin Patch 0.4mg TDERMAL SCH (15:33)
[2019-05-23] MEDS: Aspirin Baby 81mg ORAL SCH (15:34)
[2019-05-23 16:00] VITALS: BP 144/71
--- NOTE | 2019-05-23 17:12 | Consultation ---
History of Present Illness General Date patient seen: May 23, 2019 Reason for Hospitalization: Altered Level of Consciousness Present Illness HPI 63 YO gentleman with Narcolepsy, Non-insulin dependant type II DM, hypothyroidism, chronic back pain, prior history of drug addiction presenting with AMS after GLF. Patient is alert but disoriented and unable to verbalize words. History is obtained from the (Joyce) on the phone. Per the , prior to admission, patient slept for 2 days without eating or drinking. She reports that patient was found down on the floor covered in urine and fecal matter with also evidence of bleeding from the head. He had apparently fallen from the bed. The fall was not witnessed but per the , patient could have been on the ground for more than 24 hours. The reports that patient has been suffering from narcolepsy for years and every 2 months he goes through a period where he sleeps for 2-3 days without waking up. At his baseline, patient is alert and oriented but during such episodes he becomes disoriented and would speak gibberish and non-sense. Despite taking his prescribed Adderall, patient continues to experience such prolonged sleeping episodes. It is also reported that patient suffers from chronic back pain and since 2007 ( after undergoing spinal fusion) he has been using walker to ambulate around the house. He has to use wheelchair outside of the house. Patient's adds that he used to suffer from polysubstance abuse including cocaine, alcohol and benzodiazepines but he has been clean since 3 years ago. He takes prescribed opiates for his chronic back pain. The adds that 2 weeks ago patient was diagnosed with oral thrush for which he was evaluated at local and prescribed with PO antifungal. There is no report of CP, SOB, N/V/D/F/C. No reports of sick contacts or recent travel. Allergies: Coded Allergies: No Known Allergies (Unverified , 05/22/19) COVID-19 Screening Contact w/high risk pt: No Recent Travel to affected area: No Experienced COVID-19 symptoms?: No Medication History Scheduled Amlodipine Besylate/Benazepril 5-20 Mg (Lotrel 5-20 Mg Capsule*), 1 CAP ORAL DAILY, (Reported) Amphet Asp/Amphet/D-Amphet (Adderall 30 Mg Tablet), 30 MG ORAL DAILY, (Reported) Baclofen* (Lioresal*), 20 MG ORAL PRN, (Reported) Baclofen* (Lioresal*), 20 MG ORAL PRN, (Reported) Desvenlafaxine (Desvenlafaxine Er), 100 MG ORAL DAILY, (Reported) Hydrocodone Bit/Acetaminophen 10-325* (Hydrocodon-Acetaminophn 10-325*), 1 TAB ORAL Q6H, (Reported) Levothyroxine Sodium (Synthroid), 300 MCG ORAL DAILY, (Reported) Metformin Hcl* (Metformin Hcl*), 500 MG ORAL TWICE A DAY, (Reported) Patient History Healthcare decision maker PT self Resuscitation status Full Code Advanced Directive on File Review of Systems Review of Symptoms General ROS: no weight loss or fever Psychological ROS: no depression or mood changes, no memory loss Ophthalmic ROS: no visual changes or eye irritation ENT ROS: no nasal congestion, hearing loss, dizziness Allergy and Immunology ROS: no allergic symptoms or urticaria Hematological and Lymphatic ROS: no swollen glands, unusual bleeding or bruising Endocrine ROS: no polyuria, polydipsia, weight changes, temperature intolerance Respiratory ROS: no cough, shortness of breath, or wheezing Cardiovascular ROS: no chest pain or dyspnea on exertion Gastrointestinal ROS: denies abdominal pain, bright red blood in stool. Musculoskeletal ROS: no myalgias or arthralgias Neurological ROS: no TIA or stroke symptoms Dermatological ROS: no new or changing skin lesions, rashes or pruritis Physical Exam Physical Exam General appearance: alert, cooperative, no distress, appears stated age Head: Normocephalic, without obvious abnormality, atraumatic Eyes: conjunctivae/corneas clear. PERRL, EOM's intact. Fundi benign Throat: Lips, mucosa, and tongue normal. Teeth and gums normal Neck: supple, symmetrical, trachea midline, no adenopathy, thyroid: not enlarged, symmetric, no tenderness/mass/nodules, no carotid bruit and no JVD Lungs: clear to auscultation bilaterally Heart: regular rate and rhythm, S1, S2 normal, no murmur, click, rub or gallop Abdomen: soft, non-tender. Bowel sounds normal. No masses, no organomegaly Extremities: extremities normal, atraumatic, no cyanosis or edema Pulses: 2+ and symmetric Skin: Skin color, texture, turgor normal. No rashes or lesions Neurologic: alert, hyper verbal, confused, oriented x 2, non focal Last 24 Hour Vital Signs Date Time Temp Pulse Resp B/P (MAP) Pulse Ox O2 Delivery O2 Flow Rate FiO2 05/23/19 16:00 Room Air 05/23/19 15:33 124/65 05/23/19 12:00 97.7 106 20 124/65 (84) 97 05/23/19 12:00 Room Air 05/23/19 11:56 106 05/23/19 08:00 98.1 116 21 120/74 (89) 97 05/23/19 08:00 Room Air 05/23/19 07:43 106 05/23/19 04:00 98.3 99 19 127/78 (94) 98 05/23/19 04:00 Room Air 05/23/19 04:00 110 05/23/19 00:57 Room Air 05/23/19 00:00 113 05/23/19 00:00 97.7 103 19 135/72 (93) 99 05/22/19 23:50 99.1 118 18 141/49 97 Room Air 05/22/19 21:10 118 18 Room Air 05/22/19 21:10 99.1 118 18 141/49 97 Room Air 05/22/19 21:01 97.5 118 18 141/49 (79) 97 Room Air Intake and Output 05/22/19 05/23/19 19:00 07:00 Intake Total 525 ml Output Total 400 ml Balance 125 ml Intake IV Total 525 ml Output Urine Total 400 ml Laboratory Tests Test 05/22/19 21:30 05/22/19 22:31 05/22/19 23:20 05/22/19 23:30 White Blood Count 27.7 K/UL (4.8-10.8) *H Red Blood Count 6.18 M/UL (4.70-6.10) H Hemoglobin 17.5 G/DL (14.2-18.0) Hematocrit 54.7 % (42.0-52.0) H Mean Corpuscular Volume 89 FL (80-99) Mean Corpuscular Hemoglobin 28.4 PG (27.0-31.0) Mean Corpuscular Hemoglobin Concent 32.1 G/DL (32.0-36.0) Red Cell Distribution Width 14.2 % (11.6-14.8) Platelet Count 680 K/UL (150-450) H Mean Platelet Volume 6.4 FL (6.5-10.1) L Neutrophils (%) (Auto) % (45.0-75.0) Lymphocytes (%) (Auto) % (20.0-45.0) Monocytes (%) (Auto) % (1.0-10.0) Eosinophils (%) (Auto) % (0.0-3.0) Basophils (%) (Auto) % (0.0-2.0) Differential Total Cells Counted 100 Neutrophils % (Manual) 85 % (45-75) H Lymphocytes % (Manual) 10 % (20-45) L Monocytes % (Manual) 5 % (1-10) Eosinophils % (Manual) 0 % (0-3) Basophils % (Manual) 0 % (0-2) Band Neutrophils 0 % (0-8) Platelet Estimate Increased H Platelet Morphology Normal Red Blood Cell Morphology Normal Prothrombin Time 10.9 SEC (9.30-11.50) Prothromb Time International Ratio 1.0 (0.9-1.1) Activated Partial Thromboplast Time 29 SEC (23-33) Sodium Level 143 MMOL/L (136-145) Potassium Level 4.1 MMOL/L (3.5-5.1) Chloride Level 100 MMOL/L (98-107) Carbon Dioxide Level 25 MMOL/L (21-32) Anion Gap 18 mmol/L (5-15) H Blood Urea Nitrogen 63 mg/dL (7-18) H Creatinine 1.4 MG/DL (0.55-1.30) H Estimat Glomerular Filtration Rate 50.9 mL/min (>60) Glucose Level 219 MG/DL (74-106) H Lactic Acid Level 3.10 mmol/L (0.4-2.0) H 2.80 mmol/L (0.66-2.22) H Calcium Level 10.8 MG/DL (8.5-10.1) H Phosphorus Level 2.8 MG/DL (2.5-4.9) Magnesium Level 3.4 MG/DL (1.8-2.4) H Total Bilirubin 0.9 MG/DL (0.2-1.0) Aspartate Amino Transf (AST/SGOT) 439 U/L (15-37) H Alanine Aminotransferase (ALT/SGPT) 122 U/L (12-78) H Alkaline Phosphatase 108 U/L (46-116) Ammonia < 10 umol/L (11-32) L Total Creatine Kinase 30661 U/L (26-308) H Creatine Kinase MB 57.9 NG/ML (0.0-3.6) H Creatine Kinase MB Relative Index 0.3 Troponin I 0.375 ng/mL (0.000-0.056) 0.319 ng/mL (0.000-0.056) Pro-B-Type Natriuretic Peptide 3137 pg/mL (0-125) H Total Protein 10.1 G/DL (6.4-8.2) H Albumin 4.9 G/DL (3.4-5.0) Globulin 5.2 g/dL Albumin/Globulin Ratio 0.9 (1.0-2.7) L Salicylates Level 3.0 ug/mL (2.8-20) Acetaminophen Level < 2 MCG/ML (10-30) L Serum Alcohol < 3 mg/dL Urine Color Pale yellow Urine Appearance Clear Urine pH 5 (4.5-8.0) Urine Specific [place] [employer] 1.020 (1.005-1.035) Urine Protein 3+ (NEGATIVE) H Urine Glucose (UA) Negative (NEGATIVE) Urine Ketones 1+ (NEGATIVE) H Urine Blood 5+ (NEGATIVE) H Urine Nitrite Negative (NEGATIVE) Urine Bilirubin Negative (NEGATIVE) Urine Urobilinogen Normal MG/DL (0.0-1.0) Urine Leukocyte Esterase Negative (NEGATIVE) Urine RBC 5-10 /HPF (0 - 0) H Urine WBC 0-2 /HPF (0 - 0) Urine Squamous Epithelial Cells None /LPF (NONE/OCC) Urine Bacteria Few /HPF (NONE) Urine Opiates Screen Positive (NEGATIVE) H Urine Barbiturates Screen Negative (NEGATIVE) Phencyclidine (PCP) Screen Negative (NEGATIVE) Urine Amphetamines Screen Positive (NEGATIVE) H Urine Benzodiazepines Screen Negative (NEGATIVE) Urine Cocaine Screen Negative (NEGATIVE) Urine Marijuana (THC) Screen Positive (NEGATIVE) H Test 05/23/19 04:20 05/23/19 04:30 05/23/19 16:20 White Blood Count 25.2 K/UL (4.8-10.8) *H Red Blood Count 4.69 M/UL (4.70-6.10) L Hemoglobin 13.8 G/DL (14.2-18.0) L Hematocrit 40.4 % (42.0-52.0) L Mean Corpuscular Volume 86 FL (80-99) Mean Corpuscular Hemoglobin 29.5 PG (27.0-31.0) Mean Corpuscular Hemoglobin Concent 34.3 G/DL (32.0-36.0) Red Cell Distribution Width 13.1 % (11.6-14.8) Platelet Count 457 K/UL (150-450) H Mean Platelet Volume 5.3 FL (6.5-10.1) L Neutrophils (%) (Auto) % (45.0-75.0) Lymphocytes (%) (Auto) % (20.0-45.0) Monocytes (%) (Auto) % (1.0-10.0) Eosinophils (%) (Auto) % (0.0-3.0) Basophils (%) (Auto) % (0.0-2.0) Differential Total Cells Counted 100 Neutrophils % (Manual) 86 % (45-75) H Lymphocytes % (Manual) 5 % (20-45) L Monocytes % (Manual) 9 % (1-10) Eosinophils % (Manual) 0 % (0-3) Basophils % (Manual) 0 % (0-2) Band Neutrophils 0 % (0-8) Platelet Estimate Adequate Platelet Morphology Normal Sodium Level 147 MMOL/L (136-145) H Potassium Level 3.2 MMOL/L (3.5-5.1) L Chloride Level 111 MMOL/L (98-107) H Carbon Dioxide Level 22 MMOL/L (21-32) Anion Gap 15 mmol/L (5-15) Blood Urea Nitrogen 45 mg/dL (7-18) H Creatinine 1.1 MG/DL (0.55-1.30) Estimat Glomerular Filtration Rate > 60 mL/min (>60) Glucose Level 183 MG/DL (74-106) H Lactic Acid Level 1.70 mmol/L (0.4-2.0) Calcium Level 8.9 MG/DL (8.5-10.1) Phosphorus Level 2.2 MG/DL (2.5-4.9) L Magnesium Level 2.6 MG/DL (1.8-2.4) H Total Creatine Kinase 6923 U/L (26-308) H Troponin I 0.339 ng/mL (0.000-0.056) Pending Microbiology Date/Time Source Procedure Growth Status 05/22/19 21:30 Nasal Nares - Final Complete 05/22/19 21:30 Nasal Nares - Final Complete Height (Feet): 5 Height (Inches): 7.00 Weight (Pounds): 150 Medications Current Medications Medications (Trade) Dose Ordered Sig/Syd Route PRN Reason Start Time Stop Time Status Last Admin Dose Admin Aspirin (ASA) 81 mg DAILY ORAL 05/23/19 14:45 07/07/19 14:44 05/23/19 15:34 Dextrose (Dextrose 50%) 25 ml Q30M PRN IV Hypoglycemia 05/23/19 01:30 08/21/19 01:29 Dextrose (Dextrose 50%) 50 ml Q30M PRN IV Hypoglycemia 05/23/19 01:30 08/21/19 01:29 Docusate Sodium (Colace) 100 mg THREE TIMES A DAY ORAL 05/23/19 18:00 06/22/19 17:59 Heparin Sodium (Porcine) (Heparin 5000 units/ml) 5,000 units EVERY 12 HOURS SUBQ 05/23/19 12:00 07/07/19 11:59 05/23/19 12:47 Insulin Aspart (NovoLOG) BEFORE MEALS AND HS SUBQ 05/23/19 06:30 08/21/19 06:29 Levothyroxine Sodium (Synthroid) 300 mcg DAILY@0630 ORAL 05/23/19 06:30 06/22/19 06:29 05/23/19 06:48 Nitroglycerin (Ntg) 1 patch Q24H TDERMAL 05/23/19 14:45 06/22/19 14:44 05/23/19 15:33 Pantoprazole (Protonix) 40 mg EVERY 12 HOURS ORAL 05/23/19 21:00 06/22/19 20:59 Piperacillin Sod/ Tazobactam Sod 3.375 gm/Sodium Chloride 110 ml @ 27.5 mls/hr EVERY 8 HOURS IVPB 05/23/19 14:00 05/28/19 13:59 05/23/19 14:31 Potassium Chloride (K-Dur) 40 meq TWICE A DAY ORAL 05/23/19 14:45 05/25/19 14:44 05/23/19 15:34 Sodium Chloride 1,000 ml @ 100 mls/hr Q10H IV 05/23/19 14:45 06/22/19 14:44 05/23/19 15:33 Tamsulosin HCl (Flomax) 0.4 mg BEDTIME ORAL 05/23/19 21:00 06/22/19 20:59 Vancomycin HCl (Vanco rx to dose) 1 ea DAILY PRN MISC Per rx protocol 05/23/19 10:30 06/22/19 10:29 Vancomycin HCl 750 mg/Sodium Chloride 275 ml @ 183.333 mls/hr Q12H IVPB 05/23/19 12:00 05/28/19 11:59 05/23/19 12:45 Assessment/Plan Problem List: (1) Substance abuse ICD Codes: F19.10 - Other psychoactive substance abuse, uncomplicated SNOMED: 41100485 (2) Rhabdomyolysis ICD Codes: M62.82 - Rhabdomyolysis SNOMED: 229382522 (3) Skin ulcer ICD Codes: L98.499 - Non-pressure chronic ulcer of skin of other sites with unspecified severity SNOMED: 08731427 (4) Sepsis ICD Codes: A41.9 - Sepsis, unspecified organism SNOMED: 89622370 (5) Elevated LFTs ICD Codes: R94.5 - Abnormal results of liver function studies SNOMED: 470758621, 296740669 (6) AMS (altered mental status) ICD Codes: R41.82 - Altered mental status, unspecified SNOMED: 810223153 (7) Narcolepsy ICD Codes: G47.419 - Narcolepsy without cataplexy SNOMED: 12615534 (8) Diabetes ICD Codes: E11.9 - Type 2 diabetes mellitus without complications SNOMED: 49524926 (9) Hypothyroidism ICD Codes: E03.9 - Hypothyroidism, unspecified SNOMED: 96629195 (10) Depressive disorder ICD Codes: F32.9 - Major depressive disorder, single episode, unspecified SNOMED: 88212255 (11) Chronic back pain ICD Codes: M54.9 - Dorsalgia, unspecified; G89.29 - Other chronic pain SNOMED: 301635636 (12) BETSY (acute kidney injury) ICD Codes: N17.9 - Acute kidney failure, unspecified SNOMED: 6983574, 76801043 (13) Leukocytosis ICD Codes: D72.829 - Elevated white blood cell count, unspecified SNOMED: 547927739, 980233921 Assessment/Plan: acute encephalopathy, betsy and rhabdo Found down, unlikely seizure narcolepsy FU mri brain Hold home adderal, can resume outpt FU with outpt psych PT OT MIPS Hospital declaration INPATIENT level of care is warranted for this patient because patient is a 89 year old with who presents with suspicion of . I have a high level of concern because . Patient is at high risk for . Plan of care/treatment include . Patient care is expected to be greater than 2 midnights. OBSERVATION level of care is warranted for this patient. Patient is a 89 year old with who presents with . Patient will be admitted for 1 midnight, but if additional night(s) is/are necessary, patient will be converted to inpatient status for the entire hospitalization Disposition: Once the patient is stable to leave the hospital, I anticipate the patient will likely be discharged to the following environment: Estimated discharge date: I spent 70 minutes on this patient's case, and minutes was dedicated to counseling and/or care coordination. MIPS ([employer]-based Incentive Payment System) Applicable CPT: 05543, 80943 CHECK ALL THAT ARE MET: Measure #5 (CHF): All ages. Prescribe BO/ARB upon discharge for patients with left ventricular systolic dysfunction. If not, the reason is clearly documented in the medical chart. Measure #8 (CHF): All ages. Prescribe a beta catie upon discharge for patients with left ventricular systolic dysfunction. If not, the reason is clearly documented in the medical chart. Measure #47 Advance care plan or surrogate decision maker documented in the medical record. Measure #130 The provider has documented, updated, or reviewed the patients current medication list and has documented it in the patients note. Measure #374 (All): Send report to referring provider. Measure #407(Sepsis due to MSSA bacteremia): Age 18+ Patient treated with a beta-lactam antibiotic (Nafcillin, Oxacillin or Cefazolin) as definitive therapy. MEDICAL COMPLEXITY High complexity medical decision making (need 2/3 categories) Problem - need 4 points Acute/new problem with new plan for workup (4 points, 1 max) Acute/new problem without additional workup (3 points, 1 max) Unstable chronic problem actively being managed (2 point each, 2 max) Stable chronic problem actively being managed (1 point each, 2 max) Self-limited/transient process (constipation, muscle ache, etc) (1 point each , 2 max) Data - need 4 points Reviewed labs/imaging studies (1 points, 2 max) Independent review of imaging (EKG, xrays, etc) (2 points, 2 max) Discussed case with consult/other MD/RN (2 points, 2 max) High Risk - qualify if have one of the following: Severe exacerbation of acute problem, acute mental status change, IV narcotics , monitoring drug levels (vancomycin, INR, tacrolimus etc) Myron Varela MD May 23, 2019 17:12
[2019-05-23] MEDS: Docusate 100mg cap ORAL SCH (18:33)
[2019-05-23 20:00] VITALS: BP 124/68
[2019-05-23] MEDS: Tamsulosin 0.4mg cap ORAL SCH (20:12)
[2019-05-23] MEDS ORDERED: Zolpidem 5mg tab ORAL ONE (21:15)
[2019-05-24] VITALS (7 sets, daily range): BP systolic 116–146; BP diastolic 61–85
[2019-05-24 05:14] LABS: BASOPHILS % (AUTO) 1.5 % (0.0-2.0); EOSINOPHILS % (AUTO) 0.1 % (0.0-3.0); HEMATOCRIT 32.2 % (42.0-52.0); HEMOGLOBIN 11.1 G/DL (14.2-18.0); LYMPHOCYTES % (AUTO) 17.2 % (20.0-45.0); MEAN CORPUSCULAR VOLUME 86 FL (80-99); MONOCYTES % (AUTO) 9.2 % (1.0-10.0); NEUTROPHILS % (AUTO) 71.9 % (45.0-75.0); PLATELET COUNT 380 K/UL (150-450); RED BLOOD COUNT 3.74 M/UL (4.70-6.10); RED CELL DISTRIBUTION WIDTH 12.8 % (11.6-14.8); WHITE BLOOD COUNT 17.7 K/UL (4.8-10.8)
[2019-05-24 05:42] LABS: PHOSPHORUS 2.3 MG/DL (2.5-4.9)
[2019-05-24 05:45] LABS: ALANINE AMINOTRANSFERASE 73 U/L (12-78); ALBUMIN 2.7 G/DL (3.4-5.0); ALBUMIN/GLOBULIN RATIO 0.8 (1.0-2.7); ALKALINE PHOSPHATASE 63 U/L (46-116); ANION GAP 13 mmol/L (5-15); ASPARTATE AMINO TRANSFERASE 99 U/L (15-37); BILIRUBIN,TOTAL 0.5 MG/DL (0.2-1.0); BLOOD UREA NITROGEN 32 mg/dL (7-18); CALCIUM 8.5 MG/DL (8.5-10.1); CARBON DIOXIDE 21 MMOL/L (21-32); CHLORIDE 107 MMOL/L (98-107); CHOLESTEROL 138 MG/DL (< 200); CREATINE KINASE 2181 U/L (26-308); CREATININE 0.9 MG/DL (0.55-1.30); HDL CHOLESTEROL 38 MG/DL (40-60); POTASSIUM 3.7 MMOL/L (3.5-5.1); SODIUM 141 MMOL/L (136-145); TRIGLYCERIDES 115 MG/DL (30-150)
[2019-05-24] MEDS: Piperacillin/Tazobactam 3.375 GM in NS 110 ML IVPB SCH ×3 (05:57→21:49)
[2019-05-24] MEDS: NovoLOG Insulin Flexpen SUBQ SCH ×4 (06:06→22:06)
[2019-05-24] MEDS: Heparin 5000 units/ml inj SUBQ SCH ×2 (08:53→21:43)
[2019-05-24] MEDS: Docusate 100mg cap ORAL SCH ×3 (08:54→17:55)
[2019-05-24] MEDS: Aspirin Baby 81mg ORAL SCH (08:54)
--- NOTE | 2019-05-24 11:14 | General Progress Note ---
Assessment/Plan Assessment/Plan: 63 YO M with hx of narcolepsy, chronic back pain, hypothyroidism, and diabetes mellitus presenting with GLF and AMS after 2-day period of prolonged sleeping episode. In the ED, patient was found to be clinically dehydrated and the medical work up was suggestive of rhabdomyolysis (CK> 70043) and Leukocytosis (WBC: 19547) Patient is being admitted for further observation and medical management. #Rhabdomyolysis #BETSY - resolved #Dehydration #Poor oral intake -Serum CK :20589>>6900>>2181 -Serum Cr-: 1.4>>1.1 -s/p 3L of IV N.S in the ED. -Initially on 150cc/hr of IV N.S; Given improvement in CK, cont. NS at lower the rate to 75 cc/hr. -Encourage PO intake. -CK levels downtrending but remain high -Continue to monitor the CK level. -Strict I's and O's -Avoid nephrotoxins -Dr. Boswell of nephrology consulted. Appreciate further recommendations. #Leukocytosis: #Left Lingular Infiltrate possible CAP -Infectious vs. hemoconcentration effect in the setting of severe Dehydration -CT chest w/left lingular infiltrate -WBC:27>>25>>17 -No fever -Influenza swab negative. -UA with reflex to culture. -Blood culture x 2 - prelim w/gram positive cocci -abx per ID -Dr. Nithin Patterson of ID consulted: jerardo and lesvia #GLF: -CT Head suggestive of left sided scalp hematoma; No evidence of intracranial bleed. -CT Chest/Abdomen/Pelvis non suggestive of any signs of intraabdominal bleed/ rib fracture -Brain and cervical MRI reviewed, brain MRI with mild atrophy, CT C-spine with C4-5 moderate central spinal stenosis and evidence of previous fusion -UDS positive for marijuana, opiates and amphetamines -PT/OT -fall precautions #Lactic acidosis: resolved -Serum lactic acid levels:3.1>>2.8>>1.7 -Likely secondary to poor tissue perfusion in the setting of severe dehydration. However, underlying infection yet to be ruled out. #Elevated troponin: downtrending -Likely 2/2 demand ischemia in the setting of severe dehydration. -Serum Troponin 0.375, 0.133, 0.059 -EKG non-suggestive of any ST segment or T wave abnormalities. -Continuous cardiac monitoring. -Continue to trend troponin levels. #type II DM: -Diabetic diet. -Insulin Sliding scale. #Hx of Narcolepsy: -Hold home Adderall in the setting of BETSY -Continue to monitor. -Avoid sedatives. -Fall precaution. -Neurology consulted: holding home adderal while in-pt #Hx of Depression: -Resume home medication. #chronic back pain: -Resume home medication. -PT/OT once more stable. #Hypothyroidism: -Resume home levothyroxine. Fluid: IV N.S 75 cc/hr Electrolyte: Monitor and replete PRN Nutrition: Diabetic Diet. DVT PPX: SUb Q Heparin. Time spent on encounter: 36 mins, >50% on counseling, coordination of care. Time of note doesn't reflect time of encounter. Subjective Constitutional: Denies: no symptoms, chills, diaphoresis, fever, malaise, weakness, other HEENT: Denies: no symptoms, eye pain, blurred vision, tearing, double vision, ear pain, ear discharge, nose pain, nose congestion, throat pain, throat swelling, mouth pain, mouth swelling, other Respiratory: Denies: no symptoms, cough, orthopnea, shortness of breath, SOB with excertion, SOB at rest, sputum, stridor, wheezing, other Gastrointestinal/Abdominal: Denies: no symptoms, abdomen distended, abdominal pain, black stools, tarry stools, blood in stool, constipated, diarrhea, difficulty swallowing, nausea, poor appetite, poor fluid intake, rectal bleeding , vomiting, other Genitourinary: Denies: no symptoms, burning, discharge, frequency, flank pain, hematuria, incontinence, pain, urgency, other Neurologic/Psychiatric: Denies: no symptoms, anxiety, depressed, emotional problems, headache, numbness, paresthesia, pre-existing deficit, seizure, tingling, tremors, weakness, other Endocrine: Denies: no symptoms, excessive sweating, flushing, intolerance to cold, intolerance to heat, increased hunger, increased thirst, increased urine, unexplained weight gain, unexplained weight loss, other Hematologic/Lymphatic: Denies: no symptoms, anemia, easy bleeding, easy bruising, other Allergies: Coded Allergies: No Known Allergies (Unverified , 3/23/20) Subjective Follow-up for rhabdomyolysis. No acute events overnight. Patient more alert today, states he feels better today, has some gas otherwise denies any abdominal pain, N/V, F/C, cough, SOB, CP or muscle aches at this time. Objective Last 24 Hour Vital Signs Date Time Temp Pulse Resp B/P (MAP) Pulse Ox O2 Delivery O2 Flow Rate FiO2 05/24/19 08:00 Room Air Room Air 05/24/19 08:00 98.6 104 19 116/83 (94) 98 05/24/19 08:00 103 05/24/19 05:30 98.1 96 18 121/61 (81) 95 05/24/19 04:00 98.0 97 24 117/72 (87) 95 05/24/19 04:00 Room Air Room Air 05/24/19 03:40 98 05/24/19 00:00 97.7 98 22 128/85 (99) 94 05/24/19 00:00 Room Air Room Air 05/23/19 23:27 108 05/23/19 20:00 98.1 108 20 124/68 (86) 96 05/23/19 20:00 Room Air Room Air 05/23/19 19:31 106 05/23/19 16:00 99.5 111 21 144/71 (95) 97 05/23/19 16:00 Room Air 05/23/19 15:44 110 05/23/19 15:33 124/65 05/23/19 12:00 97.7 106 20 124/65 (84) 97 05/23/19 12:00 Room Air 05/23/19 11:56 106 Intake and Output 05/23/19 05/24/19 19:00 07:00 Intake Total 950 ml 1908.330 ml Output Total 200 ml Balance 950 ml 1708.330 ml Intake Oral 550 ml 950 ml IV Total 400 ml 958.330 ml Output Urine Total 200 ml # Voids 3 Laboratory Tests 05/23/19 16:20: Troponin I 0.133H 05/24/19 03:45: Troponin I 0.059H, White Blood Count 17.7H, Red Blood Count 3.74L, Hemoglobin 11.1L, Hematocrit 32.2L, Mean Corpuscular Volume 86, Mean Corpuscular Hemoglobin 29.6, Mean Corpuscular Hemoglobin Concent 34.4, Red Cell Distribution Width 12.8, Platelet Count 380, Mean Platelet Volume 5.3L, Neutrophils (%) (Auto) 71.9, Lymphocytes (%) (Auto) 17.2L, Monocytes (%) (Auto) 9.2, Eosinophils (%) (Auto) 0.1, Basophils (%) (Auto) 1.5, Sodium Level 141, Potassium Level 3.7, Chloride Level 107, Carbon Dioxide Level 21, Anion Gap 13, Blood Urea Nitrogen 32H, Creatinine 0.9, Estimat Glomerular Filtration Rate > 60 , Glucose Level 132H, Hemoglobin A1c 6.8H, Uric Acid 3.7, Calcium Level 8.5, Phosphorus Level 2.3L, Magnesium Level 2.2, Total Bilirubin 0.5, Gamma Glutamyl Transpeptidase 44, Aspartate Amino Transf (AST/SGOT) 99H, Alanine Aminotransferase (ALT/SGPT) 73, Alkaline Phosphatase 63, Total Creatine Kinase 2181H, C-Reactive Protein, Quantitative 8.8H, Pro-B-Type Natriuretic Peptide 502H, Total Protein 5.9#L, Albumin 2.7L, Globulin 3.2, Albumin/Globulin Ratio 0.8L, Triglycerides Level 115, Cholesterol Level 138, LDL Cholesterol 82, HDL Cholesterol 38L, Cholesterol/HDL Ratio 3.6, Vitamin B12 Level 440, Folate 2.7L Height (Feet): 5 Height (Inches): 7.00 Weight (Pounds): 225 Objective General: NAD, A&O x 3, alert, awake HEENT: NCAT, EOMi, scalp hematoma CV: RRR, no murmurs, rubs, or gallops Pulm: CTAB, No wheezes, rhonchi, or rales, no accessory muscle usage or conversational dyspnea GI: Soft, nontender, nondistended, bowel sounds present Neuro: CN 2-12 grossly intact bilaterally, no focal signs. Ext: No lower extremity edema bilaterally Skin: no rashes lesions or ulcers Msk: Joints symmetrical in upper extremity and lower extremity bilaterally, no joint swelling. Lymph: No lymphadenopathy in upper extremity and lower extremity Radha Espitia M.D. May 24, 2019 11:14
--- NOTE | 2019-05-24 13:31 | Nephrology Progress Note ---
Assessment/Plan Problem List: (1) BETSY (acute kidney injury) (2) Rhabdomyolysis Assessment: Dehydration (3) Narcolepsy (4) Diabetes Assessment: Presents with hyperglycemia (5) Hypothyroidism Assessment Acute kidney injury, Rhabdomyolysis, Dehydration, Diabetes mellitus type 2 with blood sugar out of control, Chronic pain, substance abuse, Urine positive for amphetamine, opiates, marijuana, Hypothyroidism, Narcolepsy, Plan Plan: IV hydration 100 cc an hour half-normal saline Correct abnormal electrolytes, oral potassium supplements at this time Monitor CPK and renal parameters Oral folic acid Keep the blood sugar and blood pressure in check Stool softener Protonix p.o. 2D echocardiogram Flomax at bedtime Per orders Subjective ROS Limited/Unobtainable: No Constitutional: Reports: malaise, other - tronger Objective Objective Last 24 Hour Vital Signs Date Time Temp Pulse Resp B/P (MAP) Pulse Ox O2 Delivery O2 Flow Rate FiO2 05/24/19 08:00 Room Air Room Air 05/24/19 08:00 98.6 104 19 116/83 (94) 98 05/24/19 08:00 103 05/24/19 05:30 98.1 96 18 121/61 (81) 95 05/24/19 04:00 98.0 97 24 117/72 (87) 95 05/24/19 04:00 Room Air Room Air 05/24/19 03:40 98 05/24/19 00:00 97.7 98 22 128/85 (99) 94 05/24/19 00:00 Room Air Room Air 05/23/19 23:27 108 05/23/19 20:00 98.1 108 20 124/68 (86) 96 05/23/19 20:00 Room Air Room Air 05/23/19 19:31 106 05/23/19 16:00 99.5 111 21 144/71 (95) 97 05/23/19 16:00 Room Air 05/23/19 15:44 110 05/23/19 15:33 124/65 Intake and Output 05/23/19 05/24/19 19:00 07:00 Intake Total 950 ml 1908.330 ml Output Total 200 ml Balance 950 ml 1708.330 ml Intake Oral 550 ml 950 ml IV Total 400 ml 958.330 ml Output Urine Total 200 ml # Voids 3 Laboratory Tests 05/23/19 16:20: Troponin I 0.133H 05/24/19 03:45: Troponin I 0.059H, White Blood Count 17.7H, Red Blood Count 3.74L, Hemoglobin 11.1L, Hematocrit 32.2L, Mean Corpuscular Volume 86, Mean Corpuscular Hemoglobin 29.6, Mean Corpuscular Hemoglobin Concent 34.4, Red Cell Distribution Width 12.8, Platelet Count 380, Mean Platelet Volume 5.3L, Neutrophils (%) (Auto) 71.9, Lymphocytes (%) (Auto) 17.2L, Monocytes (%) (Auto) 9.2, Eosinophils (%) (Auto) 0.1, Basophils (%) (Auto) 1.5, Sodium Level 141, Potassium Level 3.7, Chloride Level 107, Carbon Dioxide Level 21, Anion Gap 13, Blood Urea Nitrogen 32H, Creatinine 0.9, Estimat Glomerular Filtration Rate > 60 , Glucose Level 132H, Hemoglobin A1c 6.8H, Uric Acid 3.7, Calcium Level 8.5, Phosphorus Level 2.3L, Magnesium Level 2.2, Total Bilirubin 0.5, Gamma Glutamyl Transpeptidase 44, Aspartate Amino Transf (AST/SGOT) 99H, Alanine Aminotransferase (ALT/SGPT) 73, Alkaline Phosphatase 63, Total Creatine Kinase 2181H, C-Reactive Protein, Quantitative 8.8H, Pro-B-Type Natriuretic Peptide 502H, Total Protein 5.9#L, Albumin 2.7L, Globulin 3.2, Albumin/Globulin Ratio 0.8L, Triglycerides Level 115, Cholesterol Level 138, LDL Cholesterol 82, HDL Cholesterol 38L, Cholesterol/HDL Ratio 3.6, Vitamin B12 Level 440, Folate 2.7L Height (Feet): 5 Height (Inches): 7.00 Weight (Pounds): 225 General Appearance: no apparent distress, lethargic Cardiovascular: tachycardia Respiratory/Chest: decreased breath sounds Abdomen: soft Delta Boswell MD May 24, 2019 13:31
[2019-05-24] MEDS: Simethicone 80mg tab ORAL SCH ×2 (13:46→17:55)
[2019-05-24] MEDS: Vancomycin 750mg/NS 275ml IVPB SCH ×2 (13:46)
--- NOTE | 2019-05-24 14:17 | Diagnostic Imaging Report ---
Indication: Adrenal mass Technique: MRI of the abdomen was performed in a 1.5 Paloma magnet. Pulse sequences obtained include coronal and axial T2 single shot fast spin echo breathhold, Axial T1 FSPGR in/out phase, Axial T2 FSE w/ fat saturation, Axial 2-D FIESTA, Ax/Cor T1 LAVA. No gadolinium given. Comparison: CT abdomen 05/22/2019 Findings: There is a 3 x 2.3 x 2.7 cm ovoid left adrenal mass. The mass exhibits similar signal intensity to the spleen on T1-weighted images and is slightly decreased in signal on T2-weighted images relative to the liver and spleen. On T1 gradient echo (out of phase relative to in phase), the mass shows uniformly diminished signal intensity, which is indicative of chemical shift artifact due to presence of micro-lipid. This finding is pathopneumonic for a benign adrenal adenoma. No further evaluation or follow-up is necessary. The gallbladder is contracted at the time of this scan. There is no biliary ductal dilatation. There is no hydronephrosis or free fluid. Small hiatal hernia is noted. IMPRESSION: Study is diagnostic for a left adrenal adenoma. No further evaluation of this is needed.
[2019-05-24] MEDS: Nitroglycerin Patch 0.4mg TDERMAL SCH (14:31)
--- NOTE | 2019-05-24 17:33 | Infectious Diseases Prog Note ---
Assessment/Plan Assessment/Plan Full consult dictated: A) 1) gram + bacteremia, sepsis, leukocytosis, possible pna, infiltrate seen on CT chest, hx thrush 2) fall, w/u per primary, scalp hematoma 3) pmh noted P) 1) zosyn and vancomycin 2) f/u on cultures, labs and chest x-ray 3) check echo, surveillance blood cultures 4) will f/u Subjective Allergies: Coded Allergies: No Known Allergies (Unverified , 05/22/19) Objective Vital Signs Last 24 Hour Vital Signs Date Time Temp Pulse Resp B/P (MAP) Pulse Ox O2 Delivery O2 Flow Rate FiO2 05/24/19 16:00 98.6 69 18 146/80 (102) 98 05/24/19 14:31 135/66 05/24/19 12:00 98.1 83 20 135/66 (89) 98 05/24/19 12:00 103 05/24/19 08:00 Room Air Room Air 05/24/19 08:00 98.6 104 19 116/83 (94) 98 05/24/19 08:00 103 05/24/19 05:30 98.1 96 18 121/61 (81) 95 05/24/19 04:00 98.0 97 24 117/72 (87) 95 05/24/19 04:00 Room Air Room Air 05/24/19 03:40 98 05/24/19 00:00 97.7 98 22 128/85 (99) 94 05/24/19 00:00 Room Air Room Air 05/23/19 23:27 108 05/23/19 20:00 98.1 108 20 124/68 (86) 96 05/23/19 20:00 Room Air Room Air 05/23/19 19:31 106 Height (Feet): 5 Height (Inches): 7.00 Weight (Pounds): 225 Microbiology Date/Time Source Procedure Growth Status 05/22/19 21:30 Blood Blood Culture - Preliminary Resulted 05/22/19 21:15 Blood Blood Culture - Preliminary Resulted 05/22/19 21:30 Nasal Nares - Final Complete 05/22/19 21:30 Nasal Nares - Final Complete Laboratory Tests Test 05/24/19 03:45 White Blood Count 17.7 K/UL (4.8-10.8) H Red Blood Count 3.74 M/UL (4.70-6.10) L Hemoglobin 11.1 G/DL (14.2-18.0) L Hematocrit 32.2 % (42.0-52.0) L Mean Corpuscular Volume 86 FL (80-99) Mean Corpuscular Hemoglobin 29.6 PG (27.0-31.0) Mean Corpuscular Hemoglobin Concent 34.4 G/DL (32.0-36.0) Red Cell Distribution Width 12.8 % (11.6-14.8) Platelet Count 380 K/UL (150-450) Mean Platelet Volume 5.3 FL (6.5-10.1) L Neutrophils (%) (Auto) 71.9 % (45.0-75.0) Lymphocytes (%) (Auto) 17.2 % (20.0-45.0) L Monocytes (%) (Auto) 9.2 % (1.0-10.0) Eosinophils (%) (Auto) 0.1 % (0.0-3.0) Basophils (%) (Auto) 1.5 % (0.0-2.0) Sodium Level 141 MMOL/L (136-145) Potassium Level 3.7 MMOL/L (3.5-5.1) Chloride Level 107 MMOL/L (98-107) Carbon Dioxide Level 21 MMOL/L (21-32) Anion Gap 13 mmol/L (5-15) Blood Urea Nitrogen 32 mg/dL (7-18) H Creatinine 0.9 MG/DL (0.55-1.30) Estimat Glomerular Filtration Rate > 60 mL/min (>60) Glucose Level 132 MG/DL (74-106) H Hemoglobin A1c 6.8 % (4.3-6.0) H Uric Acid 3.7 MG/DL (2.6-7.2) Calcium Level 8.5 MG/DL (8.5-10.1) Phosphorus Level 2.3 MG/DL (2.5-4.9) L Magnesium Level 2.2 MG/DL (1.8-2.4) Total Bilirubin 0.5 MG/DL (0.2-1.0) Gamma Glutamyl Transpeptidase 44 U/L (5-85) Aspartate Amino Transf (AST/SGOT) 99 U/L (15-37) H Alanine Aminotransferase (ALT/SGPT) 73 U/L (12-78) Alkaline Phosphatase 63 U/L (46-116) Total Creatine Kinase 2181 U/L (26-308) H Troponin I 0.059 ng/mL (0.000-0.056) C-Reactive Protein, Quantitative 8.8 mg/dL (0.00-0.90) H Pro-B-Type Natriuretic Peptide 502 pg/mL (0-125) H Total Protein 5.9 G/DL (6.4-8.2) #L Albumin 2.7 G/DL (3.4-5.0) L Globulin 3.2 g/dL Albumin/Globulin Ratio 0.8 (1.0-2.7) L Triglycerides Level 115 MG/DL (30-150) Cholesterol Level 138 MG/DL (< 200) LDL Cholesterol 82 mg/dL (<100) HDL Cholesterol 38 MG/DL (40-60) L Cholesterol/HDL Ratio 3.6 (3.3-4.4) Vitamin B12 Level 440 PG/ML (193-986) Folate 2.7 NG/ML (8.6-58.9) L Current Medications Medications (Trade) Dose Ordered Sig/Syd Route PRN Reason Start Time Stop Time Status Last Admin Dose Admin Aspirin (ASA) 81 mg DAILY ORAL 05/23/19 14:45 07/07/19 14:44 05/24/19 08:54 Dextrose (Dextrose 50%) 25 ml Q30M PRN IV Hypoglycemia 05/23/19 01:30 08/21/19 01:29 Dextrose (Dextrose 50%) 50 ml Q30M PRN IV Hypoglycemia 05/23/19 01:30 08/21/19 01:29 Docusate Sodium (Colace) 100 mg THREE TIMES A DAY ORAL 05/23/19 18:00 06/22/19 17:59 05/24/19 13:46 Folic Acid (Folate) 5 mg DAILY ORAL 05/24/19 10:00 06/23/19 09:59 05/24/19 10:56 Heparin Sodium (Porcine) (Heparin 5000 units/ml) 5,000 units EVERY 12 HOURS SUBQ 05/23/19 12:00 07/07/19 11:59 05/24/19 08:53 Insulin Aspart (NovoLOG) BEFORE MEALS AND HS SUBQ 05/23/19 06:30 08/21/19 06:29 05/23/19 20:14 Levothyroxine Sodium (Synthroid) 300 mcg DAILY@0630 ORAL 05/23/19 06:30 06/22/19 06:29 05/24/19 05:56 Nitroglycerin (Ntg) 1 patch Q24H TDERMAL 05/23/19 14:45 06/22/19 14:44 05/24/19 14:31 Pantoprazole (Protonix) 40 mg EVERY 12 HOURS ORAL 05/23/19 21:00 06/22/19 20:59 05/24/19 08:54 Piperacillin Sod/ Tazobactam Sod 3.375 gm/Sodium Chloride 110 ml @ 27.5 mls/hr EVERY 8 HOURS IVPB 05/23/19 14:00 05/28/19 13:59 05/24/19 14:30 Potassium Chloride (K-Dur) 40 meq TWICE A DAY ORAL 05/23/19 14:45 05/25/19 14:44 05/24/19 08:53 Simethicone (Mylicon) 80 mg TID ORAL 05/24/19 13:00 05/27/19 12:59 05/24/19 13:46 Sodium Chloride 1,000 ml @ 100 mls/hr Q10H IV 05/23/19 14:45 06/22/19 14:44 05/24/19 11:14 Tamsulosin HCl (Flomax) 0.4 mg BEDTIME ORAL 05/23/19 21:00 06/22/19 20:59 05/23/19 20:12 Vancomycin HCl (Vanco rx to dose) 1 ea DAILY PRN MISC Per rx protocol 05/23/19 10:30 06/22/19 10:29 Vancomycin HCl 750 mg/Sodium Chloride 275 ml @ 183.333 mls/hr Q12H IVPB 05/23/19 12:00 05/28/19 11:59 05/24/19 13:46 Stu Fitch MD May 24, 2019 17:32
--- NOTE | 2019-05-24 20:45 | Consultation ---
DATE OF CONSULTATION: 05/24/2019 INFECTIOUS DISEASES CONSULTATION CONSULTING PHYSICIAN: Stu Fitch M.D. ATTENDING PHYSICIAN: Sheri Sherman M.D. REFERRING PHYSICIAN: Dr. Crane. REASON FOR CONSULTATION: Gram-positive bacteremia, sepsis, leukocytosis, possible pneumonia. CHIEF COMPLAINT: The patient's chief complaint coming into the hospital is altered mental status. HISTORY OF PRESENT ILLNESS: This is a 63-year-old male who has history of narcolepsy, diabetes, chronic back pain, history of drug addiction in the past. The patient was found to be disoriented and presented to [facility] with altered mental status. Workup shows the following, a CT scan abdomen, pelvis and chest shows lingular infiltrate in the left. Blood cultures have gram-positive organisms in 4/4 bottles. Identification is pending. Infectious Diseases consultation requested for antibiotic management. The patient was started on vancomycin and Zosyn yesterday. The patient has significant leukocytosis likely severe sepsis. Troponin was elevated as well as his lactic acid. The patient will be continued on vancomycin and Zosyn, pending final workup. An echo has also been ordered. Again, workup showed he had gram-positive bacteremia, sepsis, elevated white count, possible pneumonia. We will continue vancomycin and Zosyn for now. The patient is also status post ground level fall and has rhabdomyolysis. REVIEW OF SYSTEMS: The patient has a Pollard, generalized fatigue, weakness, but is responsive and oriented. He is feels better today than when I saw him yesterday. He has no fever, chills, night sweats mentioned. He did come in with altered mental status.HEAD AND NECK: No head pain. Maybe some neck discomfort. No neck stiffness. No thrush or dysphagia, sinus tenderness. CARDIAC: No chest pain or palpitations. GASTROINTESTINAL: No nausea, vomiting, abdominal pain, diarrhea. GENITOURINARY: He has a Pollard. No CVA tenderness. PULMONARY: No significant congestion, shortness of breath, maybe mild cough but nothing significant. SKIN: No rash or itching. EXTREMITIES: No pain. NEUROLOGIC: No seizures. Wounds were reviewed and noted. Generalized fatigue. No new focal weakness. He did come in with altered mental status. He has some general weakness and chronic pain. PAST MEDICAL HISTORY: The patient has a past medical history of the following. The patient has a past medical history of narcolepsy, chronic back pain, hypothyroidism, elevated troponin, ground level fall, diabetes type 2, depression, chronic pain syndrome. No history of hypertension mentioned. ALLERGIES: No known drug allergies. No antibiotic allergies. SOCIAL HISTORY: Negative for smoking, alcohol. Drug addiction per the records. FAMILY HISTORY: Noncontributory. Negative for tuberculosis or cancer. MEDICATIONS: Upon reviewing the MAR, the patient is on following medications. He is on , folic acid, tamsulosin, pantoprazole, docusate, sodium chloride, potassium chloride, aspirin, nitroglycerin, Zosyn, vancomycin, heparin, levothyroxine, insulin. Antibiotics, vancomycin and Zosyn. Outside medications noted and reconciliated. PHYSICAL EXAMINATION: VITAL SIGNS: Temperature 98.6, pulse rate 69, respiratory rate 18, blood pressure 146/80, O2 saturation 98%. Pulse rate has been as high as 118. Temperature maximum 99.5. He did have low-grade fevers. GENERAL: The patient is alert, responsive, no acute distress, more responsive today than yesterday. HEAD AND NECK: Oral exam, no thrush. Eye exam, no icterus. Normocephalic. Neck is supple. No JVD. HEART: Regular. No obvious gallop or murmur. ABDOMEN: Soft. Positive bowel sounds. Nontender. LUNGS: Few bilateral rhonchi, possible rales at bases. SKIN: No rash. Wounds were noted, not acutely infected. MUSCULOSKELETAL: No effusions. Legs are without cellulitis. No septic arthritis. PERIPHERAL VASCULAR: No cyanosis. No gangrene or ischemic changes in the extremities. GENITOURINARY: He has Pollard. Urine is slightly cloudy. LINE SITES: Without phlebitis. NEUROLOGIC: Generalized weakness and responsive. He is alert. LABORATORY AND DIAGNOSTIC DATA: Laboratory data is as follows. UA had 0 to 2 white cells. Creatinine 0.9. Lactic acid was elevated at 3.1. White count 17.7, hemoglobin 11.1. White count on admission was 27.7. LFTs were noted. Cultures, a 4/4 blood cultures came back for gram-positive cocci. Influenza screen was negative. IMAGING STUDIES: Chest x-ray showed no acute findings. CT scan of the abdomen, pelvis, and chest showed lingular infiltrate, looks like adrenal mass. MRI of the abdomen was noted and showed left adrenal adenoma. Echo has been ordered also. ASSESSMENT AND PLAN: 1. The patient has gram-positive bacteremia, sepsis, elevated white count, low-grade fevers, possible pneumonia, lingular infiltrate on CT scan. The patient is at risk for community-acquired pneumonia, also aspiration pneumonia because of the history of narcolepsy and is on pain medications for chronic pain. He also had a ground level fall and rhabdomyolysis, also some risk for aspiration pneumonia. At this time, we will continue antibiotics, vancomycin and Zosyn since the patient does have gram-positive bacteremia, must rule on endocarditis and we will check echo and await identification of blood cultures. Continue vancomycin and Zosyn for gram-positive bacteremia, sepsis, elevated white count, pneumonia. Check surveillance blood cultures and labs. Check followup chest x-ray and check echo. Continue vancomycin and Zosyn for gram-positive bacteremia, sepsis, pneumonia. 2. The patient has a history of ground level fall. 3. Rhabdomyolysis. 4. Dehydration. 5. Diabetes. Blood sugar treatment per primary care team. 6. The patient has hypothyroidism. 7. Chronic back pain. 8. History of drug abuse in the past per the records. 9. Altered mental status. 10. No history of hypertension. 11. Lactic acidosis. 12. Narcolepsy. 13. Depression. 14. Allergies are negative. 15. Social history is otherwise negative. 16. MAR was noted. 17. Case discussed with RN. 18. Family History is noncontributory. 19. No known drug allergies. 20. Continue treatment per primary consultants. 21. Skin care protocol. 22. Wounds were reviewed, not acutely infected. 23. Followup on echo and surveillance blood cultures. Stu Fitch M.D. DR: Yash JOB#: [id number] CC:
[2019-05-24] MEDS: Tamsulosin 0.4mg cap ORAL SCH (21:39)
[2019-05-25] VITALS: BP 132/83
[2019-05-25] MEDS: Vancomycin 1.25gm/NS Premix 275 ML IVPB SCH ×2 (01:00→12:49)
[2019-05-25 04:00] VITALS: BP 145/88
[2019-05-25] MEDS: Piperacillin/Tazobactam 3.375 GM in NS 110 ML IVPB SCH ×3 (06:14→21:14)
[2019-05-25] MEDS: NovoLOG Insulin Flexpen SUBQ SCH ×4 (06:14→21:40)
[2019-05-25 06:47] LABS: BASOPHILS % (AUTO) 1.7 % (0.0-2.0); EOSINOPHILS % (AUTO) 0.4 % (0.0-3.0); HEMATOCRIT 31.5 % (42.0-52.0); HEMOGLOBIN 10.9 G/DL (14.2-18.0); LYMPHOCYTES % (AUTO) 13.6 % (20.0-45.0); MEAN CORPUSCULAR VOLUME 85 FL (80-99); MONOCYTES % (AUTO) 8.4 % (1.0-10.0); NEUTROPHILS % (AUTO) 75.9 % (45.0-75.0); PLATELET COUNT 409 K/UL (150-450); RED BLOOD COUNT 3.68 M/UL (4.70-6.10); RED CELL DISTRIBUTION WIDTH 12.7 % (11.6-14.8); WHITE BLOOD COUNT 14.5 K/UL (4.8-10.8)
[2019-05-25 07:10] LABS: ALANINE AMINOTRANSFERASE 65 U/L (12-78); ALBUMIN 2.9 G/DL (3.4-5.0); ALBUMIN/GLOBULIN RATIO 0.9 (1.0-2.7); ALKALINE PHOSPHATASE 61 U/L (46-116); ANION GAP 10 mmol/L (5-15); ASPARTATE AMINO TRANSFERASE 78 U/L (15-37); BILIRUBIN,TOTAL 0.5 MG/DL (0.2-1.0); BLOOD UREA NITROGEN 18 mg/dL (7-18); CALCIUM 8.7 MG/DL (8.5-10.1); CARBON DIOXIDE 24 MMOL/L (21-32); CHLORIDE 106 MMOL/L (98-107); CREATININE 0.7 MG/DL (0.55-1.30); PHOSPHORUS 2.4 MG/DL (2.5-4.9); POTASSIUM 3.7 MMOL/L (3.5-5.1); SODIUM 140 MMOL/L (136-145)
[2019-05-25 08:00] VITALS: BP 149/94
[2019-05-25 08:10] LABS: CREATINE KINASE 1641 U/L (26-308)
[2019-05-25] MEDS: Docusate 100mg cap ORAL SCH ×3 (09:13→17:55)
[2019-05-25] MEDS: Aspirin Baby 81mg ORAL SCH (09:14)
[2019-05-25] MEDS: Simethicone 80mg tab ORAL SCH ×3 (09:14→17:55)
[2019-05-25] MEDS: Heparin 5000 units/ml inj SUBQ SCH ×2 (09:15→21:15)
--- NOTE | 2019-05-25 10:32 | Diagnostic Imaging Report ---
Indication: Dyspnea Comparison: 05/22/2019 A single view chest radiograph was obtained. Findings: The heart is mildly enlarged. Pulmonary vascularity appears slightly prominent but may be similar to the last occasion accounting for the lower lung volumes. Lower cervical 3 level fusion noted once again. Bones are osteopenic. Aorta is mildly calcified. IMPRESSION: No acute disease
[2019-05-25 12:00] VITALS: BP 152/98
--- NOTE | 2019-05-25 12:37 | General Progress Note ---
Assessment/Plan Assessment/Plan: 63 YO M with hx of narcolepsy, chronic back pain, hypothyroidism, and diabetes mellitus presenting with GLF and AMS after 2-day period of prolonged sleeping episode. In the ED, patient was found to be clinically dehydrated and the medical work up was suggestive of rhabdomyolysis (CK> 71645) and Leukocytosis (WBC: 73812) Patient is being admitted for further observation and medical management. #Bacteremia - Staph coag neg #Leukocytosis - downtrending #Left Lingular Infiltrate possible CAP -CT chest w/left lingular infiltrate -WBC:27>>25>>17>>14.5 -Influenza swab negative. -UA with reflex to culture. -Blood culture x 2 - prelim w/gram positive cocci -repeat BCx -GI ordered -ID: Dr. Nithin Patterson: vanc and zosyn #Rhabdomyolysis #BETSY - resolved #Dehydration #Poor oral intake -Serum CK :85444>>6900>>2181>>1600 -s/p 3L of IV N.S in the ED. -Initially on 150cc/hr of IV N.S; Given improvement in CK, cont. NS at lower the rate to 75 cc/hr. -Encourage PO intake. -CK levels downtrending but remain high, ctm -Strict I's and O's -Avoid nephrotoxins -Nephro: Dr. Boswell following. Appreciate further recommendations. #GLF: -CT Head suggestive of left sided scalp hematoma; No evidence of intracranial bleed. -CT Chest/Abdomen/Pelvis non suggestive of any signs of intraabdominal bleed/ rib fracture -Brain and cervical MRI reviewed, brain MRI with mild atrophy, CT C-spine with C4-5 moderate central spinal stenosis and evidence of previous fusion -UDS positive for marijuana, opiates and amphetamines -PT/OT -fall precautions #Lactic acidosis: resolved -Serum lactic acid levels:3.1>>2.8>>1.7 -Likely secondary to poor tissue perfusion in the setting of severe dehydration. However, underlying infection yet to be ruled out. #Elevated troponin: downtrending -Likely 2/2 demand ischemia in the setting of severe dehydration. -Serum Troponin 0.375, 0.133, 0.059 -EKG non-suggestive of any ST segment or T wave abnormalities. -Continuous cardiac monitoring. #type II DM: -Diabetic diet. -Insulin Sliding scale. #Hx of Narcolepsy: -MRI brain negative for acute process -Continue to monitor. -Avoid sedatives. -Fall precaution. -Neurology consulted: holding home Adderall while in-pt #Left Adrenal Adenoma -seen on CT abd -MRI abd with evidence of left adrenal adenoma -pt to f/u o/p w/PCP #Hx of Depression: -Resume home medication. #chronic back pain: -Resume home medication. -PT/OT once more stable. #Hypothyroidism: -Resume home levothyroxine. Fluid: IV N.S 75 cc/hr Electrolyte: Monitor and replete PRN Nutrition: Diabetic Diet. DVT PPX: SUb Q Heparin. Time spent on encounter: 36 mins, >50% on counseling, coordination of care. Time of note doesn't reflect time of encounter. Subjective Constitutional: Denies: no symptoms, chills, diaphoresis, fever, malaise, weakness, other HEENT: Denies: no symptoms, eye pain, blurred vision, tearing, double vision, ear pain, ear discharge, nose pain, nose congestion, throat pain, throat swelling, mouth pain, mouth swelling, other Cardiovascular: Denies: no symptoms, chest pain, edema, irregular heart rate, lightheadedness, palpitations, syncope, other Respiratory: Denies: no symptoms, cough, orthopnea, shortness of breath, SOB with excertion, SOB at rest, sputum, stridor, wheezing, other Gastrointestinal/Abdominal: Denies: no symptoms, abdomen distended, abdominal pain, black stools, tarry stools, blood in stool, constipated, diarrhea, difficulty swallowing, nausea, poor appetite, poor fluid intake, rectal bleeding , vomiting, other Genitourinary: Denies: no symptoms, burning, discharge, frequency, flank pain, hematuria, incontinence, pain, urgency, other Allergies: Coded Allergies: No Known Allergies (Unverified , 05/22/19) Subjective Follow-up for rhabdomyolysis, Bacteremia. BCx positive for staph coagulase-negative No acute events overnight. Pt denies any F/C, CP, SOB, abd pain, muscle aches. Objective Last 24 Hour Vital Signs Date Time Temp Pulse Resp B/P (MAP) Pulse Ox O2 Delivery O2 Flow Rate FiO2 05/25/19 12:00 97.8 94 20 152/98 (116) 95 05/25/19 09:00 Room Air Room Air 05/25/19 08:00 98.0 92 20 149/94 (112) 95 05/25/19 07:54 96 05/25/19 04:00 97.7 98 18 145/88 (107) 95 05/25/19 04:00 98 05/25/19 00:00 95 05/25/19 00:00 97.0 95 18 132/83 (99) 97 05/24/19 21:00 Room Air Room Air 05/24/19 20:00 98.0 95 18 138/78 (98) 96 05/24/19 20:00 95 05/24/19 16:00 98.6 69 18 146/80 (102) 98 05/24/19 16:00 96 05/24/19 14:31 135/66 Intake and Output 05/24/19 05/25/19 19:00 07:00 Intake Total 140 ml Output Total 2100 ml Balance -1960 ml Intake Oral 140 ml Output Urine Total 2100 ml # Voids 3 Laboratory Tests 05/24/19 23:07: Vancomycin Level Trough 9.0 05/25/19 05:43: White Blood Count 14.5H, Red Blood Count 3.68L, Hemoglobin 10.9L, Hematocrit 31.5L, Mean Corpuscular Volume 85, Mean Corpuscular Hemoglobin 29.5, Mean Corpuscular Hemoglobin Concent 34.5, Red Cell Distribution Width 12.7, Platelet Count 409, Mean Platelet Volume 5.6L, Neutrophils (%) (Auto) 75.9H, Lymphocytes (%) (Auto) 13.6L, Monocytes (%) (Auto) 8.4, Eosinophils (%) (Auto) 0.4, Basophils (%) (Auto) 1.7, Sodium Level 140, Potassium Level 3.7, Chloride Level 106, Carbon Dioxide Level 24, Anion Gap 10, Blood Urea Nitrogen 18, Creatinine 0.7, Estimat Glomerular Filtration Rate > 60, Glucose Level 118H, Uric Acid 2.2L , Calcium Level 8.7, Phosphorus Level 2.4L, Magnesium Level 2.2, Total Bilirubin 0.5, Aspartate Amino Transf (AST/SGOT) 78H, Alanine Aminotransferase ( ALT/SGPT) 65, Alkaline Phosphatase 61, Total Creatine Kinase 1641H, Total Protein 6.3L, Albumin 2.9L, Globulin 3.4, Albumin/Globulin Ratio 0.9L Height (Feet): 5 Height (Inches): 7.00 Weight (Pounds): 225 Objective General: NAD, A&O x 3, alert, awake HEENT: NCAT, EOMi, scalp hematoma healing CV: RRR, no murmurs, rubs, or gallops Pulm: CTAB, No wheezes, rhonchi, or rales, no accessory muscle usage or conversational dyspnea GI: Soft, nontender, nondistended, bowel sounds present Neuro: CN 2-12 grossly intact bilaterally, no focal signs. Ext: No lower extremity edema bilaterally Radha Espitia M.D. May 25, 2019 12:37
--- NOTE | 2019-05-25 14:28 | Consultation ---
History of Present Illness General Date patient seen: May 25, 2019 Reason for Hospitalization: Altered Level of Consciousness Present Illness HPI this is a 63 year old male that has history of narcolepsy, Non-insulin dependant type II DM, hypothyroidism, chronic back pain, prior history of drug addiction presenting with altered mental status after ground-level fall. On admission patient was identified to have multiple skin tears and injuries requiring care and management. Significant leukocytosis. Abnormal imaging findings. Surgery called to evaluate and assist with care. Patient seen, patient evaluated, chart reviewed. In ED history was obtained from the (Joyce) on the phone. Per the , prior to admission, patient slept for 2 days without eating or drinking. She reports that patient was found down on the floor covered in urine and fecal matter with also evidence of bleeding from the head. He had apparently fallen from the bed. The fall was not witnessed but per the , patient could have been on the ground for more than 24 hours. The reports that patient has been suffering from narcolepsy for years and every 2 months he goes through a period where he sleeps for 2-3 days without waking up. At his baseline, patient is alert and oriented but during such episodes he becomes disoriented and would speak gibberish and non-sense. Despite taking his prescribed Adderall, patient continues to experience such prolonged sleeping episodes. it is also reported that patient suffers from chronic back pain and since 2007 (after undergoing spinal fusion) he has been using walker to ambulate around the house. He has to use wheelchair outside of the house. Patient's adds that he used to suffer from polysubstance abuse including cocaine, alcohol and benzodiazepines but he has been clean since 3 years ago. He takes prescribed opiates for his chronic back pain. The adds that 2 weeks ago patient was diagnosed with oral thrush for which he was evaluated at local and prescribed with PO antifungal. There is no report of CP, SOB, N/V/D/F/C. No reports of sick contacts or recent travel. Allergies: Coded Allergies: No Known Allergies (Unverified , 05/22/19) COVID-19 Screening Contact w/high risk pt: No Recent Travel to affected area: No Experienced COVID-19 symptoms?: No Medication History Scheduled Amlodipine Besylate/Benazepril 5-20 Mg (Lotrel 5-20 Mg Capsule*), 1 CAP ORAL DAILY, (Reported) Amphet Asp/Amphet/D-Amphet (Adderall 30 Mg Tablet), 30 MG ORAL DAILY, (Reported) Baclofen* (Lioresal*), 20 MG ORAL PRN, (Reported) Baclofen* (Lioresal*), 20 MG ORAL PRN, (Reported) Desvenlafaxine (Desvenlafaxine Er), 100 MG ORAL DAILY, (Reported) Hydrocodone Bit/Acetaminophen 10-325* (Hydrocodon-Acetaminophn 10-325*), 1 TAB ORAL Q6H, (Reported) Levothyroxine Sodium (Synthroid), 300 MCG ORAL DAILY, (Reported) Metformin Hcl* (Metformin Hcl*), 500 MG ORAL TWICE A DAY, (Reported) Patient History History Provided By: Patient, Medical Record, PMD Healthcare decision maker PT self Resuscitation status Full Code Advanced Directive on File Past Medical/Surgical History Past Medical/Surgical History: (1) Substance abuse (2) Rhabdomyolysis (3) Skin ulcer (4) Sepsis (5) Elevated LFTs (6) AMS (altered mental status) (7) Narcolepsy (8) Diabetes (9) Hypothyroidism (10) Depressive disorder (11) Chronic back pain (12) BETSY (acute kidney injury) (13) Leukocytosis Review of Systems Review of Symptoms General ROS: no weight loss or fever Psychological ROS: no depression or mood changes, no memory loss Ophthalmic ROS: no visual changes or eye irritation ENT ROS: no nasal congestion, hearing loss, dizziness Allergy and Immunology ROS: no allergic symptoms or urticaria Hematological and Lymphatic ROS: no swollen glands, unusual bleeding or bruising Endocrine ROS: no polyuria, polydipsia, weight changes, temperature intolerance Respiratory ROS: no cough, shortness of breath, or wheezing Cardiovascular ROS: no chest pain or dyspnea on exertion Gastrointestinal ROS: denies abdominal pain, bright red blood in stool. Musculoskeletal ROS: no myalgias or arthralgias Neurological ROS: no TIA or stroke symptoms Dermatological ROS: no new or changing skin lesions, rashes or pruritis Physical Exam Physical Exam General appearance: alert, cooperative, no distress, appears stated age Head: Normocephalic, without obvious abnormality, atraumatic Eyes: conjunctivae/corneas clear. PERRL, EOM's intact. Fundi benign Throat: Lips, mucosa, and tongue normal. Teeth and gums normal Neck: supple, symmetrical, trachea midline, no adenopathy, thyroid: not enlarged, symmetric, no tenderness/mass/nodules, no carotid bruit and no JVD Lungs: clear to auscultation bilaterally Heart: regular rate and rhythm, S1, S2 normal, no murmur, click, rub or gallop Abdomen: soft, non-tender. Bowel sounds normal. No masses, no organomegaly Extremities: extremities see below Pulses: 2+ and symmetric Skin: Skin color, texture, turgor normal. No rashes or lesions Neurologic: Grossly normal Last 24 Hour Vital Signs Date Time Temp Pulse Resp B/P (MAP) Pulse Ox O2 Delivery O2 Flow Rate FiO2 05/25/19 12:00 97.8 94 20 152/98 (116) 95 05/25/19 11:46 105 05/25/19 09:00 Room Air Room Air 05/25/19 08:00 98.0 92 20 149/94 (112) 95 05/25/19 07:54 96 05/25/19 04:00 97.7 98 18 145/88 (107) 95 05/25/19 04:00 98 05/25/19 00:00 95 05/25/19 00:00 97.0 95 18 132/83 (99) 97 05/24/19 21:00 Room Air Room Air 05/24/19 20:00 98.0 95 18 138/78 (98) 96 05/24/19 20:00 95 05/24/19 16:00 98.6 69 18 146/80 (102) 98 05/24/19 16:00 96 05/24/19 14:31 135/66 Intake and Output 05/24/19 05/25/19 19:00 07:00 Intake Total 140 ml Output Total 2100 ml Balance -1960 ml Intake Oral 140 ml Output Urine Total 2100 ml # Voids 3 Laboratory Tests Test 05/24/19 23:07 05/25/19 05:43 Vancomycin Level Trough 9.0 ug/mL (5.0-12.0) White Blood Count 14.5 K/UL (4.8-10.8) H Red Blood Count 3.68 M/UL (4.70-6.10) L Hemoglobin 10.9 G/DL (14.2-18.0) L Hematocrit 31.5 % (42.0-52.0) L Mean Corpuscular Volume 85 FL (80-99) Mean Corpuscular Hemoglobin 29.5 PG (27.0-31.0) Mean Corpuscular Hemoglobin Concent 34.5 G/DL (32.0-36.0) Red Cell Distribution Width 12.7 % (11.6-14.8) Platelet Count 409 K/UL (150-450) Mean Platelet Volume 5.6 FL (6.5-10.1) L Neutrophils (%) (Auto) 75.9 % (45.0-75.0) H Lymphocytes (%) (Auto) 13.6 % (20.0-45.0) L Monocytes (%) (Auto) 8.4 % (1.0-10.0) Eosinophils (%) (Auto) 0.4 % (0.0-3.0) Basophils (%) (Auto) 1.7 % (0.0-2.0) Sodium Level 140 MMOL/L (136-145) Potassium Level 3.7 MMOL/L (3.5-5.1) Chloride Level 106 MMOL/L (98-107) Carbon Dioxide Level 24 MMOL/L (21-32) Anion Gap 10 mmol/L (5-15) Blood Urea Nitrogen 18 mg/dL (7-18) Creatinine 0.7 MG/DL (0.55-1.30) Estimat Glomerular Filtration Rate > 60 mL/min (>60) Glucose Level 118 MG/DL (74-106) H Uric Acid 2.2 MG/DL (2.6-7.2) L Calcium Level 8.7 MG/DL (8.5-10.1) Phosphorus Level 2.4 MG/DL (2.5-4.9) L Magnesium Level 2.2 MG/DL (1.8-2.4) Total Bilirubin 0.5 MG/DL (0.2-1.0) Aspartate Amino Transf (AST/SGOT) 78 U/L (15-37) H Alanine Aminotransferase (ALT/SGPT) 65 U/L (12-78) Alkaline Phosphatase 61 U/L (46-116) Total Creatine Kinase 1641 U/L (26-308) H Total Protein 6.3 G/DL (6.4-8.2) L Albumin 2.9 G/DL (3.4-5.0) L Globulin 3.4 g/dL Albumin/Globulin Ratio 0.9 (1.0-2.7) L Height (Feet): 5 Height (Inches): 7.00 Weight (Pounds): 225 Medications Current Medications Medications (Trade) Dose Ordered Sig/Syd Route PRN Reason Start Time Stop Time Status Last Admin Dose Admin Aspirin (ASA) 81 mg DAILY ORAL 05/23/19 14:45 07/07/19 14:44 05/25/19 09:14 Dextrose (Dextrose 50%) 25 ml Q30M PRN IV Hypoglycemia 05/23/19 01:30 08/21/19 01:29 Dextrose (Dextrose 50%) 50 ml Q30M PRN IV Hypoglycemia 05/23/19 01:30 08/21/19 01:29 Docusate Sodium (Colace) 100 mg THREE TIMES A DAY ORAL 05/23/19 18:00 06/22/19 17:59 05/25/19 12:12 Folic Acid (Folate) 5 mg DAILY ORAL 05/24/19 10:00 06/23/19 09:59 05/25/19 09:13 Heparin Sodium (Porcine) (Heparin 5000 units/ml) 5,000 units EVERY 12 HOURS SUBQ 05/23/19 12:00 07/07/19 11:59 05/25/19 09:15 Insulin Aspart (NovoLOG) BEFORE MEALS AND HS SUBQ 05/23/19 06:30 08/21/19 06:29 05/25/19 12:13 Levothyroxine Sodium (Synthroid) 300 mcg DAILY@0630 ORAL 05/23/19 06:30 06/22/19 06:29 05/25/19 06:14 Nitroglycerin (Ntg) 1 patch Q24H TDERMAL 05/23/19 14:45 06/22/19 14:44 05/24/19 14:31 Ondansetron HCl (Zofran) 4 mg Q6H PRN IVP Nausea & Vomiting 05/24/19 22:30 06/23/19 22:29 05/25/19 05:18 Pantoprazole (Protonix) 40 mg EVERY 12 HOURS ORAL 05/23/19 21:00 06/22/19 20:59 05/25/19 09:13 Piperacillin Sod/ Tazobactam Sod 3.375 gm/Sodium Chloride 110 ml @ 27.5 mls/hr EVERY 8 HOURS IVPB 05/23/19 14:00 05/28/19 13:59 05/25/19 06:14 Potassium Chloride (K-Dur) 40 meq TWICE A DAY ORAL 05/23/19 14:45 05/25/19 14:44 05/25/19 09:14 Simethicone (Mylicon) 80 mg TID ORAL 05/24/19 13:00 05/27/19 12:59 05/25/19 12:12 Sodium Chloride 1,000 ml @ 100 mls/hr Q10H IV 05/23/19 14:45 06/22/19 14:44 05/25/19 12:12 Tamsulosin HCl (Flomax) 0.4 mg BEDTIME ORAL 05/23/19 21:00 06/22/19 20:59 05/24/19 21:39 Vancomycin HCl (Vanco rx to dose) 1 ea DAILY PRN MISC Per rx protocol 05/23/19 10:30 06/22/19 10:29 Vancomycin/Sodium Chloride 275 ml @ 184 mls/hr Q12H IVPB 05/25/19 00:00 05/30/19 00:00 05/25/19 12:49 Assessment/Plan Problem List: (1) Adrenal mass Assessment & Plan: There is a 3 x 2.3 x 2.7 cm ovoid left adrenal mass. The mass exhibits similar signal intensity to the spleen on T1-weighted images and is slightly decreased in signal on T2-weighted images relative to the liver and spleen. On T1 gradient echo (out of phase relative to in phase), the mass shows uniformly diminished signal intensity, which is indicative of chemical shift artifact due to presence of micro-lipid. This finding is pathopneumonic for a benign adrenal adenoma. No further evaluation or follow-up is necessary. The gallbladder is contracted at the time of this scan. There is no biliary ductal dilatation. There is no hydronephrosis or free fluid. Small hiatal hernia is noted. no further imaging needed adenoma f/u 1 year ICD Codes: E27.8 - Other specified disorders of adrenal gland SNOMED: 670171943 (2) Leukocytosis Assessment & Plan: gram + bacteremia, sepsis, leukocytosis, possible pna, infiltrate seen on CT chest, hx thrush on zosyn and vanco labs improving will monitor ICD Codes: D72.829 - Elevated white blood cell count, unspecified SNOMED: 358362747, 699607766 (3) Skin ulcer Assessment & Plan: Pt presented on admission with multiple skin breakdown. Pt S /P fall in community. Pt stated he was unable to get up and was laying on floor in his home for few days. Category 2 Skin tear R forearm. 20% flap loss,80% skin flap in-situ. No exudate noted. No erythema or elevation in skin temp at site or periwound. Category 2 Skin tear L elbow. Base of wound is erythematous with 10%flap loss. Large open DTPI noted to L trochanter/L hip. Base of wound is purple/maroon and indurated (L)9.5cm x (W)11.6cm. Wound is center is moist and beefy red (L)5.5cm x (W)8.5cm. No odor or exudate noted. No further skin breakdown periwound. Inferior to L trochanteric wound, but in close proximity is a square shaped area that is pink at base with red and indurated margins. No erythema or evidence of skin breakdown noted to Sacrum. DTPI L heel and lateral aspect. Base of injury is maroon,fluctuant with delineated margins.(L)3cm x (W)5cm.No erythema or signs of further skin breakdown periwound. Unstageable Pressure injury to distal/lateral L foot . Base of wound is erythematous with 20% slough at center of wound. NO other areas of skin breakdown noted. Tx.Plan: Cleanse Skin tear R forearm with Saline. Apply Silvasorb Gel. Cover with Optifoam drsg. Change every 7 days and prn. Cover L elbow with OPtifoam drsg. Change every 7 days and prn. Cleanse L trochanter with Saline. Apply TheraHoney to wound. Apply Cavilon Skin Barrier periwound. Cover with Optifoam drsg every 3 days and prn. Apply Moisture Barrier to Sacrum. Cover with Optifoam drsg.Changee very 3 days and prn. Apply Cavilon Skin Barrier to both heels. Cover each heel with Optifoam drsg. Change every 7 days and prn. Swab wound distal /lateral L foot with Betadine. Cover with Optifoam drsg. Change every 3 days and prn. Reposition at least every 2hours or as tolerated. Off-load heels with pillow. ICD Codes: L98.499 - Non-pressure chronic ulcer of skin of other sites with unspecified severity SNOMED: 45893757 Chi Luque May 25, 2019 14:28
--- NOTE | 2019-05-25 14:36 | Nephrology Progress Note ---
Assessment/Plan Problem List: (1) BETSY (acute kidney injury) (2) Rhabdomyolysis Assessment: Dehydration (3) Narcolepsy (4) Diabetes Assessment: Presents with hyperglycemia (5) Hypothyroidism Assessment Acute kidney injury, Rhabdomyolysis, Dehydration, Diabetes mellitus type 2 with blood sugar out of control, Chronic pain, substance abuse, Urine positive for amphetamine, opiates, marijuana, Hypothyroidism, Narcolepsy, Plan Plan: IV hydration now down to 75 cc an hour half-normal saline Correct abnormal electrolytes, oral potassium supplements at this time Monitor CPK and renal parameters Oral folic acid Keep the blood sugar and blood pressure in check Stool softener Protonix p.o. 2D echocardiogram Flomax at bedtime Per orders Subjective ROS Limited/Unobtainable: No Constitutional: Reports: malaise Objective Objective Last 24 Hour Vital Signs Date Time Temp Pulse Resp B/P (MAP) Pulse Ox O2 Delivery O2 Flow Rate FiO2 05/25/19 12:00 97.8 94 20 152/98 (116) 95 05/25/19 11:46 105 05/25/19 09:00 Room Air Room Air 05/25/19 08:00 98.0 92 20 149/94 (112) 95 05/25/19 07:54 96 05/25/19 04:00 97.7 98 18 145/88 (107) 95 05/25/19 04:00 98 05/25/19 00:00 95 05/25/19 00:00 97.0 95 18 132/83 (99) 97 05/24/19 21:00 Room Air Room Air 05/24/19 20:00 98.0 95 18 138/78 (98) 96 05/24/19 20:00 95 05/24/19 16:00 98.6 69 18 146/80 (102) 98 05/24/19 16:00 96 Intake and Output 05/24/19 05/25/19 19:00 07:00 Intake Total 140 ml Output Total 2100 ml Balance -1960 ml Intake Oral 140 ml Output Urine Total 2100 ml # Voids 3 Laboratory Tests 05/24/19 23:07: Vancomycin Level Trough 9.0 05/25/19 05:43: White Blood Count 14.5H, Red Blood Count 3.68L, Hemoglobin 10.9L, Hematocrit 31.5L, Mean Corpuscular Volume 85, Mean Corpuscular Hemoglobin 29.5, Mean Corpuscular Hemoglobin Concent 34.5, Red Cell Distribution Width 12.7, Platelet Count 409, Mean Platelet Volume 5.6L, Neutrophils (%) (Auto) 75.9H, Lymphocytes (%) (Auto) 13.6L, Monocytes (%) (Auto) 8.4, Eosinophils (%) (Auto) 0.4, Basophils (%) (Auto) 1.7, Sodium Level 140, Potassium Level 3.7, Chloride Level 106, Carbon Dioxide Level 24, Anion Gap 10, Blood Urea Nitrogen 18, Creatinine 0.7, Estimat Glomerular Filtration Rate > 60, Glucose Level 118H, Uric Acid 2.2L , Calcium Level 8.7, Phosphorus Level 2.4L, Magnesium Level 2.2, Total Bilirubin 0.5, Aspartate Amino Transf (AST/SGOT) 78H, Alanine Aminotransferase ( ALT/SGPT) 65, Alkaline Phosphatase 61, Total Creatine Kinase 1641H, Total Protein 6.3L, Albumin 2.9L, Globulin 3.4, Albumin/Globulin Ratio 0.9L Height (Feet): 5 Height (Inches): 7.00 Weight (Pounds): 225 General Appearance: no apparent distress Objective No change Delta Boswell MD May 25, 2019 14:35
[2019-05-25] MEDS: Nitroglycerin Patch 0.4mg TDERMAL SCH (15:52)
[2019-05-25 16:00] VITALS: BP 148/79
[2019-05-25] MEDS: Phospha 250 Neutral tab ORAL SCH (17:57)
[2019-05-25 20:00] VITALS: BP 149/88
[2019-05-25 20:08] LABS: ANION GAP 10 mmol/L (5-15); BLOOD UREA NITROGEN 14 mg/dL (7-18); CALCIUM 8.5 MG/DL (8.5-10.1); CARBON DIOXIDE 26 MMOL/L (21-32); CHLORIDE 102 MMOL/L (98-107); CREATININE 0.8 MG/DL (0.55-1.30); POTASSIUM 4.2 MMOL/L (3.5-5.1); SODIUM 137 MMOL/L (136-145)
[2019-05-25 20:12] LABS: PHOSPHORUS 2.5 MG/DL (2.5-4.9)
[2019-05-25] MEDS: Tamsulosin 0.4mg cap ORAL SCH (21:14)
[2019-05-26] VITALS: BP 142/94
[2019-05-26] MEDS: Vancomycin 1.25gm/NS Premix 275 ML IVPB SCH
[2019-05-26 04:00] VITALS: BP 130/88
[2019-05-26] MEDS: Piperacillin/Tazobactam 3.375 GM in NS 110 ML IVPB SCH ×2 (06:00→15:37)
[2019-05-26 07:00] LABS: BASOPHILS % (AUTO) 1.1 % (0.0-2.0); EOSINOPHILS % (AUTO) 1.4 % (0.0-3.0); HEMATOCRIT 33.1 % (42.0-52.0); HEMOGLOBIN 11.5 G/DL (14.2-18.0); LYMPHOCYTES % (AUTO) 15.4 % (20.0-45.0); MEAN CORPUSCULAR VOLUME 85 FL (80-99); MONOCYTES % (AUTO) 10.9 % (1.0-10.0); NEUTROPHILS % (AUTO) 71.1 % (45.0-75.0); PLATELET COUNT 411 K/UL (150-450); RED BLOOD COUNT 3.87 M/UL (4.70-6.10); WHITE BLOOD COUNT 16.4 K/UL (4.8-10.8)
[2019-05-26] MEDS: NovoLOG Insulin Flexpen SUBQ SCH ×4 (07:12→21:10)
[2019-05-26 07:24] LABS: PHOSPHORUS 2.7 MG/DL (2.5-4.9)
[2019-05-26 07:39] LABS: ALANINE AMINOTRANSFERASE 71 U/L (12-78); ALBUMIN 2.9 G/DL (3.4-5.0); ALBUMIN/GLOBULIN RATIO 0.9 (1.0-2.7); ALKALINE PHOSPHATASE 63 U/L (46-116); ANION GAP 10 mmol/L (5-15); ASPARTATE AMINO TRANSFERASE 72 U/L (15-37); BILIRUBIN,TOTAL 0.5 MG/DL (0.2-1.0); BLOOD UREA NITROGEN 12 mg/dL (7-18); CALCIUM 8.4 MG/DL (8.5-10.1); CARBON DIOXIDE 25 MMOL/L (21-32); CHLORIDE 100 MMOL/L (98-107); CREATINE KINASE 1199 U/L (26-308); CREATININE 0.8 MG/DL (0.55-1.30); POTASSIUM 3.7 MMOL/L (3.5-5.1); SODIUM 135 MMOL/L (136-145)
[2019-05-26 08:00] VITALS: BP 140/80
[2019-05-26] MEDS ORDERED: HydrALAZINE 10mg Tab ORAL PRN (08:00)
--- NOTE | 2019-05-26 08:01 | General Progress Note ---
Assessment/Plan Assessment/Plan: 63 YO M with hx of narcolepsy, chronic back pain, hypothyroidism, and diabetes mellitus presenting with GLF and AMS after 2-day period of prolonged sleeping episode. In the ED, patient was found to be clinically dehydrated and the medical work up was suggestive of rhabdomyolysis (CK> 07872) and Leukocytosis (WBC: 34544) Patient is being admitted for further observation and medical management. #Bacteremia - Staph coag neg #Leukocytosis #Left Lingular Infiltrate possible CAP #Lactic acidosis: resolved -CT chest w/left lingular infiltrate -WBC:27>>25>>17>>14.5>>16 -Influenza swab negative. -Blood culture x 2 - prelim w/gram positive cocci -repeat BCx on 05/24: NGTD 24 hrs -TTE negative for vegetations -Cardio consulted for GI -ID: Dr. Nithin Patterson: vanc and zosyn #Rhabdomyolysis #BETSY - resolved #Dehydration #Poor oral intake -Serum CK :51375>>6900>>2181>>1600>>1199 -s/p 3L of IV N.S in the ED. -Initially on 150cc/hr of IV N.S; then 75 cc/hr. -pt tolerating diet, d/c NS -Encourage PO intake. -Strict I's and O's -Avoid nephrotoxins -Nephro: Dr. Boswell following. Appreciate further recommendations. #HTN #PVCs #Elevated troponin: downtrending -Likely 2/2 demand ischemia in the setting of severe dehydration. -Serum Troponin 0.375, 0.133, 0.059, EKG non-suggestive of any ST segment or T wave abnormalities. -Continuous cardiac monitoring. -start Coreg -hydralazine PRN for SBP >160 -Mg, Phos levels normal -check TSH -Cardio consulted, reccs appreciated #GLF: -CT Head suggestive of left sided scalp hematoma; No evidence of intracranial bleed. -CT Chest/Abdomen/Pelvis non suggestive of any signs of intraabdominal bleed/ rib fracture -Brain and cervical MRI reviewed, brain MRI with mild atrophy, CT C-spine with C4-5 moderate central spinal stenosis and evidence of previous fusion -UDS positive for marijuana, opiates and amphetamines -PT/OT -fall precautions #type II DM: -HgbA1C 6.8 -Diabetic diet. -Insulin Sliding scale. #Hx of Narcolepsy: -MRI brain negative for acute process -Continue to monitor. -Avoid sedatives. -Fall precaution. -Neurology consulted: holding home Adderall while in-pt #Left Adrenal Adenoma -seen on CT abd -MRI abd with evidence of left adrenal adenoma -pt to f/u o/p w/PCP for repeat imaging in 6 months - 1 year #Hx of Depression: #Anxiety -Resume home medication. -ativan PRN #chronic back pain: -Resume home medication. -PT/OT #Hypothyroidism: -Resume home levothyroxine. Electrolyte: Monitor and replete PRN Nutrition: Diabetic Diet. DVT PPX: SUb Q Heparin. Time spent on encounter: 36 mins, >50% on counseling, coordination of care. Time of note doesn't reflect time of encounter. Subjective Constitutional: Denies: no symptoms, chills, diaphoresis, fever, malaise, weakness, other HEENT: Denies: no symptoms, eye pain, blurred vision, tearing, double vision, ear pain, ear discharge, nose pain, nose congestion, throat pain, throat swelling, mouth pain, mouth swelling, other Cardiovascular: Denies: no symptoms, chest pain, edema, irregular heart rate, lightheadedness, palpitations, syncope, other Respiratory: Denies: no symptoms, cough, orthopnea, shortness of breath, SOB with excertion, SOB at rest, sputum, stridor, wheezing, other Gastrointestinal/Abdominal: Denies: no symptoms, abdomen distended, abdominal pain, black stools, tarry stools, blood in stool, constipated, diarrhea, difficulty swallowing, nausea, poor appetite, poor fluid intake, rectal bleeding , vomiting, other Genitourinary: Denies: no symptoms, burning, discharge, frequency, flank pain, hematuria, incontinence, pain, urgency, other Neurologic/Psychiatric: Denies: no symptoms, anxiety, depressed, emotional problems, headache, numbness, paresthesia, pre-existing deficit, seizure, tingling, tremors, weakness, other Endocrine: Denies: no symptoms, excessive sweating, flushing, intolerance to cold, intolerance to heat, increased hunger, increased thirst, increased urine, unexplained weight gain, unexplained weight loss, other Allergies: Coded Allergies: No Known Allergies (Unverified , 3/23/20) Subjective Follow-up for rhabdomyolysis, Bacteremia, BCx positive for staph coagulase- negative Pt w/6 beats PVCs over night. WBC increased from 14 to 16. Pt eager to go home, states he feels anxious, denies CP, SOB. Objective Last 24 Hour Vital Signs Date Time Temp Pulse Resp B/P (MAP) Pulse Ox O2 Delivery O2 Flow Rate FiO2 05/25/19 21:00 Room Air 05/25/19 20:00 112 05/25/19 20:00 98.4 98 20 149/88 (108) 96 05/25/19 16:00 98.0 91 20 148/79 (102) 96 05/25/19 15:53 96 05/25/19 15:52 152/98 05/25/19 12:00 97.8 94 20 152/98 (116) 95 05/25/19 11:46 105 05/25/19 09:00 Room Air Room Air 05/25/19 08:00 98.0 92 20 149/94 (112) 95 Intake and Output 05/25/19 05/26/19 19:00 07:00 Intake Total 1668.5 ml Output Total 1000 ml Balance 668.5 ml Intake Oral 236 ml IV Total 1432.5 ml Output Urine Total 1000 ml # Voids 4 Laboratory Tests 05/25/19 19:10: Sodium Level 137, Potassium Level 4.2, Chloride Level 102, Carbon Dioxide Level 26, Anion Gap 10, Blood Urea Nitrogen 14, Creatinine 0.8, Estimat Glomerular Filtration Rate > 60, Glucose Level 187H, Calcium Level 8.5, Phosphorus Level 2.5, Magnesium Level 1.9 05/26/19 05:37: Sodium Level 135L, Potassium Level 3.7, Chloride Level 100, Carbon Dioxide Level 25, Anion Gap 10, Blood Urea Nitrogen 12, Creatinine 0.8, Estimat Glomerular Filtration Rate > 60, Glucose Level 164H, Calcium Level 8.4L, Phosphorus Level 2.7, Magnesium Level 1.8, White Blood Count 16.4H, Red Blood Count 3.87L, Hemoglobin 11.5L, Hematocrit 33.1L, Mean Corpuscular Volume 85, Mean Corpuscular Hemoglobin 29.8, Mean Corpuscular Hemoglobin Concent 34.9, Red Cell Distribution Width 13.0, Platelet Count 411, Mean Platelet Volume 5.8L, Neutrophils (%) (Auto) 71.1, Lymphocytes (%) (Auto) 15.4L, Monocytes (%) (Auto) 10.9H, Eosinophils (%) (Auto) 1.4, Basophils (%) (Auto) 1.1, Uric Acid 1.4L, Total Bilirubin 0.5, Aspartate Amino Transf (AST/SGOT) 72H, Alanine Aminotransferase (ALT/SGPT) 71, Alkaline Phosphatase 63, Total Creatine Kinase 1199H, Total Protein 6.3L, Albumin 2.9L, Globulin 3.4, Albumin/Globulin Ratio 0.9L Height (Feet): 5 Height (Inches): 7.00 Weight (Pounds): 225 Objective General: NAD, A&O x 3, alert, awake HEENT: NCAT, EOMi, scalp hematoma healing CV: RRR, no murmurs, rubs, or gallops Pulm: CTAB, No wheezes, rhonchi, or rales, no accessory muscle usage or conversational dyspnea GI: Soft, nontender, nondistended, bowel sounds present Ext: No lower extremity edema bilaterally Radha Espitia M.D. May 26, 2019 08:01
[2019-05-26] MEDS: Phospha 250 Neutral tab ORAL SCH ×3 (09:52→18:15)
[2019-05-26] MEDS: Simethicone 80mg tab ORAL SCH ×3 (09:52→18:14)
[2019-05-26] MEDS: Aspirin Baby 81mg ORAL SCH (09:52)
[2019-05-26] MEDS: Docusate 100mg cap ORAL SCH ×3 (09:53→18:00)
[2019-05-26] MEDS: Heparin 5000 units/ml inj SUBQ SCH ×2 (09:56→21:00)
[2019-05-26 12:00] VITALS: BP 126/77
--- NOTE | 2019-05-26 12:48 | Surgery Progress Note ---
Surgery Progress Note Subjective Additional Comments leukocytosis fluctuating elevated labs noted exam stable Objective Last 24 Hour Vital Signs Date Time Temp Pulse Resp B/P (MAP) Pulse Ox O2 Delivery O2 Flow Rate FiO2 05/26/19 09:53 100 140/80 05/26/19 04:00 97.3 111 19 130/88 (102) 97 05/26/19 04:00 111 05/26/19 00:00 98.0 106 19 142/94 (110) 95 05/26/19 00:00 106 05/25/19 21:00 Room Air 05/25/19 20:00 112 05/25/19 20:00 98.4 98 20 149/88 (108) 96 05/25/19 16:00 98.0 91 20 148/79 (102) 96 05/25/19 15:53 96 05/25/19 15:52 152/98 I&O Intake and Output 05/25/19 05/26/19 19:00 07:00 Intake Total 1668.5 ml Output Total 1000 ml Balance 668.5 ml Intake Oral 236 ml IV Total 1432.5 ml Output Urine Total 1000 ml # Voids 4 Dressing: saturated Wound: other Drains: other Cardiovascular: RSR Respiratory: decreased breath sounds Abdomen: soft, non-tender, present bowel sounds Extremities: no cyanosis, other Laboratory Tests Test 05/25/19 19:10 05/26/19 05:37 05/26/19 11:10 Sodium Level 137 MMOL/L (136-145) 135 MMOL/L (136-145) L Potassium Level 4.2 MMOL/L (3.5-5.1) 3.7 MMOL/L (3.5-5.1) Chloride Level 102 MMOL/L (98-107) 100 MMOL/L (98-107) Carbon Dioxide Level 26 MMOL/L (21-32) 25 MMOL/L (21-32) Anion Gap 10 mmol/L (5-15) 10 mmol/L (5-15) Blood Urea Nitrogen 14 mg/dL (7-18) 12 mg/dL (7-18) Creatinine 0.8 MG/DL (0.55-1.30) 0.8 MG/DL (0.55-1.30) Estimat Glomerular Filtration Rate > 60 mL/min (>60) > 60 mL/min (>60) Glucose Level 187 MG/DL (74-106) H 164 MG/DL (74-106) H Calcium Level 8.5 MG/DL (8.5-10.1) 8.4 MG/DL (8.5-10.1) L Phosphorus Level 2.5 MG/DL (2.5-4.9) 2.7 MG/DL (2.5-4.9) Magnesium Level 1.9 MG/DL (1.8-2.4) 1.8 MG/DL (1.8-2.4) White Blood Count 16.4 K/UL (4.8-10.8) H Red Blood Count 3.87 M/UL (4.70-6.10) L Hemoglobin 11.5 G/DL (14.2-18.0) L Hematocrit 33.1 % (42.0-52.0) L Mean Corpuscular Volume 85 FL (80-99) Mean Corpuscular Hemoglobin 29.8 PG (27.0-31.0) Mean Corpuscular Hemoglobin Concent 34.9 G/DL (32.0-36.0) Red Cell Distribution Width 13.0 % (11.6-14.8) Platelet Count 411 K/UL (150-450) Mean Platelet Volume 5.8 FL (6.5-10.1) L Neutrophils (%) (Auto) 71.1 % (45.0-75.0) Lymphocytes (%) (Auto) 15.4 % (20.0-45.0) L Monocytes (%) (Auto) 10.9 % (1.0-10.0) H Eosinophils (%) (Auto) 1.4 % (0.0-3.0) Basophils (%) (Auto) 1.1 % (0.0-2.0) Uric Acid 1.4 MG/DL (2.6-7.2) L Total Bilirubin 0.5 MG/DL (0.2-1.0) Aspartate Amino Transf (AST/SGOT) 72 U/L (15-37) H Alanine Aminotransferase (ALT/SGPT) 71 U/L (12-78) Alkaline Phosphatase 63 U/L (46-116) Total Creatine Kinase 1199 U/L (26-308) H Total Protein 6.3 G/DL (6.4-8.2) L Albumin 2.9 G/DL (3.4-5.0) L Globulin 3.4 g/dL Albumin/Globulin Ratio 0.9 (1.0-2.7) L Vancomycin Level Trough 11.4 ug/mL (5.0-12.0) Plan Problems: (1) Adrenal mass Assessment & Plan: There is a 3 x 2.3 x 2.7 cm ovoid left adrenal mass. The mass exhibits similar signal intensity to the spleen on T1-weighted images and is slightly decreased in signal on T2-weighted images relative to the liver and spleen. On T1 gradient echo (out of phase relative to in phase), the mass shows uniformly diminished signal intensity, which is indicative of chemical shift artifact due to presence of micro-lipid. This finding is pathopneumonic for a benign adrenal adenoma. No further evaluation or follow-up is necessary. The gallbladder is contracted at the time of this scan. There is no biliary ductal dilatation. There is no hydronephrosis or free fluid. Small hiatal hernia is noted. no further imaging needed adenoma f/u 1 year (2) Leukocytosis Assessment & Plan: gram + bacteremia, sepsis, leukocytosis, possible pna, infiltrate seen on CT chest, hx thrush on zosyn and vanco labs improving will monitor (3) Skin ulcer Assessment & Plan: Pt presented on admission with multiple skin breakdown. Pt S /P fall in community. Pt stated he was unable to get up and was laying on floor in his home for few days. Category 2 Skin tear R forearm. 20% flap loss,80% skin flap in-situ. No exudate noted. No erythema or elevation in skin temp at site or periwound. Category 2 Skin tear L elbow. Base of wound is erythematous with 10%flap loss. Large open DTPI noted to L trochanter/L hip. Base of wound is purple/maroon and indurated (L)9.5cm x (W)11.6cm. Wound is center is moist and beefy red (L)5.5cm x (W)8.5cm. No odor or exudate noted. No further skin breakdown periwound. Inferior to L trochanteric wound, but in close proximity is a square shaped area that is pink at base with red and indurated margins. No erythema or evidence of skin breakdown noted to Sacrum. DTPI L heel and lateral aspect. Base of injury is maroon,fluctuant with delineated margins.(L)3cm x (W)5cm.No erythema or signs of further skin breakdown periwound. Unstageable Pressure injury to distal/lateral L foot . Base of wound is erythematous with 20% slough at center of wound. NO other areas of skin breakdown noted. Tx.Plan: Cleanse Skin tear R forearm with Saline. Apply Silvasorb Gel. Cover with Optifoam drsg. Change every 7 days and prn. Cover L elbow with OPtifoam drsg. Change every 7 days and prn. Cleanse L trochanter with Saline. Apply TheraHoney to wound. Apply Cavilon Skin Barrier periwound. Cover with Optifoam drsg every 3 days and prn. Apply Moisture Barrier to Sacrum. Cover with Optifoam drsg.Changee very 3 days and prn. Apply Cavilon Skin Barrier to both heels. Cover each heel with Optifoam drsg. Change every 7 days and prn. Swab wound distal /lateral L foot with Betadine. Cover with Optifoam drsg. Change every 3 days and prn. Reposition at least every 2hours or as tolerated. Off-load heels with pillow. Chi Luque May 26, 2019 12:48
--- NOTE | 2019-05-26 13:09 | Nephrology Progress Note ---
Assessment/Plan Problem List: (1) BETSY (acute kidney injury) (2) Rhabdomyolysis Assessment: Dehydration (3) Narcolepsy (4) Diabetes Assessment: Presents with hyperglycemia (5) Hypothyroidism Assessment Acute kidney injury, Rhabdomyolysis, Dehydration, Diabetes mellitus type 2 with blood sugar out of control, Chronic pain, substance abuse, Urine positive for amphetamine, opiates, marijuana, Hypothyroidism, Narcolepsy, Plan Plan: Stop IV hydration now Changed Norvasc to Cardizem Since white BCs are rising and patient is bacteremic GI to be considered Check thyroid function tests as the patient is on thyroid supplements and is tachycardic Correct abnormal electrolytes, oral potassium supplements at this time Monitor CPK and renal parameters both are improving Oral folic acid Keep the blood sugar and blood pressure in check Stool softener Protonix p.o. 2D echocardiogram Flomax at bedtime Per orders Subjective ROS Limited/Unobtainable: No Constitutional: Reports: other Objective Objective Last 24 Hour Vital Signs Date Time Temp Pulse Resp B/P (MAP) Pulse Ox O2 Delivery O2 Flow Rate FiO2 05/26/19 09:53 100 140/80 05/26/19 04:00 97.3 111 19 130/88 (102) 97 05/26/19 04:00 111 05/26/19 00:00 98.0 106 19 142/94 (110) 95 05/26/19 00:00 106 05/25/19 21:00 Room Air 05/25/19 20:00 112 05/25/19 20:00 98.4 98 20 149/88 (108) 96 05/25/19 16:00 98.0 91 20 148/79 (102) 96 05/25/19 15:53 96 05/25/19 15:52 152/98 Intake and Output 05/25/19 05/26/19 19:00 07:00 Intake Total 1668.5 ml Output Total 1000 ml Balance 668.5 ml Intake Oral 236 ml IV Total 1432.5 ml Output Urine Total 1000 ml # Voids 4 Laboratory Tests 05/25/19 19:10: Sodium Level 137, Potassium Level 4.2, Chloride Level 102, Carbon Dioxide Level 26, Anion Gap 10, Blood Urea Nitrogen 14, Creatinine 0.8, Estimat Glomerular Filtration Rate > 60, Glucose Level 187H, Calcium Level 8.5, Phosphorus Level 2.5, Magnesium Level 1.9 05/26/19 05:37: Sodium Level 135L, Potassium Level 3.7, Chloride Level 100, Carbon Dioxide Level 25, Anion Gap 10, Blood Urea Nitrogen 12, Creatinine 0.8, Estimat Glomerular Filtration Rate > 60, Glucose Level 164H, Calcium Level 8.4L, Phosphorus Level 2.7, Magnesium Level 1.8, White Blood Count 16.4H, Red Blood Count 3.87L, Hemoglobin 11.5L, Hematocrit 33.1L, Mean Corpuscular Volume 85, Mean Corpuscular Hemoglobin 29.8, Mean Corpuscular Hemoglobin Concent 34.9, Red Cell Distribution Width 13.0, Platelet Count 411, Mean Platelet Volume 5.8L, Neutrophils (%) (Auto) 71.1, Lymphocytes (%) (Auto) 15.4L, Monocytes (%) (Auto) 10.9H, Eosinophils (%) (Auto) 1.4, Basophils (%) (Auto) 1.1, Uric Acid 1.4L, Total Bilirubin 0.5, Aspartate Amino Transf (AST/SGOT) 72H, Alanine Aminotransferase (ALT/SGPT) 71, Alkaline Phosphatase 63, Total Creatine Kinase 1199H, Total Protein 6.3L, Albumin 2.9L, Globulin 3.4, Albumin/Globulin Ratio 0.9L 05/26/19 11:10: Vancomycin Level Trough 11.4 Height (Feet): 5 Height (Inches): 7.00 Weight (Pounds): 225 General Appearance: no apparent distress Cardiovascular: tachycardia Respiratory/Chest: lungs clear Abdomen: soft Objective No change Delta Boswell MD May 26, 2019 13:09
[2019-05-26] MEDS ORDERED: Vancomycin 1.5gm/NS Premix q24h IVPB SCH (14:00)
--- NOTE | 2019-05-26 14:29 | Cardiac Electrophysiology PN ---
Subjective Subjective [id number] Objective Last 24 Hour Vital Signs Date Time Temp Pulse Resp B/P (MAP) Pulse Ox O2 Delivery O2 Flow Rate FiO2 05/26/19 12:00 98.0 103 20 126/77 (93) 96 05/26/19 09:53 100 140/80 05/26/19 09:00 Room Air 05/26/19 08:00 98.3 100 19 140/80 (100) 97 05/26/19 04:00 97.3 111 19 130/88 (102) 97 05/26/19 04:00 111 05/26/19 00:00 98.0 106 19 142/94 (110) 95 05/26/19 00:00 106 05/25/19 21:00 Room Air 05/25/19 20:00 112 05/25/19 20:00 98.4 98 20 149/88 (108) 96 05/25/19 16:00 98.0 91 20 148/79 (102) 96 05/25/19 15:53 96 05/25/19 15:52 152/98 Intake and Output 05/25/19 05/26/19 19:00 07:00 Intake Total 1668.5 ml Output Total 1000 ml Balance 668.5 ml Intake Oral 236 ml IV Total 1432.5 ml Output Urine Total 1000 ml # Voids 4 Laboratory Tests Test 05/25/19 19:10 05/26/19 05:37 05/26/19 11:10 Sodium Level 137 MMOL/L (136-145) 135 MMOL/L (136-145) L Potassium Level 4.2 MMOL/L (3.5-5.1) 3.7 MMOL/L (3.5-5.1) Chloride Level 102 MMOL/L (98-107) 100 MMOL/L (98-107) Carbon Dioxide Level 26 MMOL/L (21-32) 25 MMOL/L (21-32) Anion Gap 10 mmol/L (5-15) 10 mmol/L (5-15) Blood Urea Nitrogen 14 mg/dL (7-18) 12 mg/dL (7-18) Creatinine 0.8 MG/DL (0.55-1.30) 0.8 MG/DL (0.55-1.30) Estimat Glomerular Filtration Rate > 60 mL/min (>60) > 60 mL/min (>60) Glucose Level 187 MG/DL (74-106) H 164 MG/DL (74-106) H Calcium Level 8.5 MG/DL (8.5-10.1) 8.4 MG/DL (8.5-10.1) L Phosphorus Level 2.5 MG/DL (2.5-4.9) 2.7 MG/DL (2.5-4.9) Magnesium Level 1.9 MG/DL (1.8-2.4) 1.8 MG/DL (1.8-2.4) White Blood Count 16.4 K/UL (4.8-10.8) H Red Blood Count 3.87 M/UL (4.70-6.10) L Hemoglobin 11.5 G/DL (14.2-18.0) L Hematocrit 33.1 % (42.0-52.0) L Mean Corpuscular Volume 85 FL (80-99) Mean Corpuscular Hemoglobin 29.8 PG (27.0-31.0) Mean Corpuscular Hemoglobin Concent 34.9 G/DL (32.0-36.0) Red Cell Distribution Width 13.0 % (11.6-14.8) Platelet Count 411 K/UL (150-450) Mean Platelet Volume 5.8 FL (6.5-10.1) L Neutrophils (%) (Auto) 71.1 % (45.0-75.0) Lymphocytes (%) (Auto) 15.4 % (20.0-45.0) L Monocytes (%) (Auto) 10.9 % (1.0-10.0) H Eosinophils (%) (Auto) 1.4 % (0.0-3.0) Basophils (%) (Auto) 1.1 % (0.0-2.0) Uric Acid 1.4 MG/DL (2.6-7.2) L Total Bilirubin 0.5 MG/DL (0.2-1.0) Aspartate Amino Transf (AST/SGOT) 72 U/L (15-37) H Alanine Aminotransferase (ALT/SGPT) 71 U/L (12-78) Alkaline Phosphatase 63 U/L (46-116) Total Creatine Kinase 1199 U/L (26-308) H Total Protein 6.3 G/DL (6.4-8.2) L Albumin 2.9 G/DL (3.4-5.0) L Globulin 3.4 g/dL Albumin/Globulin Ratio 0.9 (1.0-2.7) L Thyroid Stimulating Hormone (TSH) 0.355 uiU/mL (0.358-3.740) Free Thyroxine 2.09 NG/DL (0.76-1.46) H Free Triiodothyronine 1.9 pg/mL (2.3-4.2) L Vancomycin Level Trough 11.4 ug/mL (5.0-12.0) Microbiology Date/Time Source Procedure Growth Status 05/25/19 05:43 Blood Blood Culture - Preliminary NO GROWTH AFTER 24 HOURS Resulted 05/25/19 05:33 Blood Blood Culture - Preliminary NO GROWTH AFTER 24 HOURS Resulted Abel Castaneda MD May 26, 2019 14:29
[2019-05-26] MEDS: Nitroglycerin Patch 0.4mg TDERMAL SCH (15:38)
[2019-05-26] MEDS: dilTIAZem HCl 30mg tab ORAL SCH ×2 (15:38→21:08)
[2019-05-26 16:00] VITALS: BP 130/75
--- NOTE | 2019-05-26 16:44 | Infectious Diseases Prog Note ---
Assessment/Plan Assessment/Plan ASSESSMENT AND PLAN: 1. tube bender bacteremia, ? pna on CT, sepsis, leukocytosis, fevers - vancomycin and zosyn - day # 3 - monitor labs and leukocytosis - chest x-ray - negative - surveillance blood cultures negative 2. The patient has a history of ground level fall. 3. Rhabdomyolysis. 4. Dehydration. 5. Diabetes. Blood sugar treatment per primary care team. 6. The patient has hypothyroidism. 7. Chronic back pain. 8. History of drug abuse in the past per the records. 9. Altered mental status. 10. No history of hypertension. 11. Lactic acidosis. 12. Narcolepsy. 13. Depression. 14. Allergies are negative. 15. Social history is otherwise negative. 16. MAR was noted. 17. Case discussed with RN. 18. Family History is noncontributory. 19. No known drug allergies. 20. Continue treatment per primary consultants. 21. Skin care protocol. 22. Wounds were reviewed, not acutely infected. 23. Followup on echo and surveillance blood cult Subjective Constitutional: Denies: fever HEENT: Denies: congestion Respiratory: Denies: shortness of breath Cardiovascular: Denies: chest pain Gastrointestinal/Abdominal: Denies: nausea, vomiting, diarrhea Genitourinary: Denies: other Neurologic: Denies: headache Psychiatric: Denies: depression Skin: Denies: rash Hematologic: Denies: bleeding Musculoskeletal: Denies: pain Allergies: Coded Allergies: No Known Allergies (Unverified , 05/22/19) Objective Vital Signs Last 24 Hour Vital Signs Date Time Temp Pulse Resp B/P (MAP) Pulse Ox O2 Delivery O2 Flow Rate FiO2 05/26/19 15:38 103 126/77 05/26/19 15:38 126/77 05/26/19 12:00 98.0 103 20 126/77 (93) 96 05/26/19 09:53 100 140/80 05/26/19 09:00 Room Air 05/26/19 08:00 98.3 100 19 140/80 (100) 97 05/26/19 04:00 97.3 111 19 130/88 (102) 97 05/26/19 04:00 111 05/26/19 00:00 98.0 106 19 142/94 (110) 95 05/26/19 00:00 106 05/25/19 21:00 Room Air 05/25/19 20:00 112 05/25/19 20:00 98.4 98 20 149/88 (108) 96 Height (Feet): 5 Height (Inches): 7.00 Weight (Pounds): 225 General Appearance: no acute distress HEENT: normocephalic, atraumatic, anicteric, mucous membranes moist Respiratory/Chest: lungs clear, normal breath sounds, no respiratory distress, no accessory muscle use Cardiovascular: normal rate, regular rhythm, no gallop/murmur, no JVD Abdomen: normal bowel sounds, soft, non tender, no organomegaly, non distended Genitourinary: other - no perry Extremities: no cyanosis Skin: no rash Neurologic/Psychiatric: social work coordinator II-XII grossly normal, alert, responsive Lymphatic: no neck adenopathy Musculoskeletal: no effusion Objective Chest x-ray - 05/25/19 - Procedure: XRAY Chest 1v Indication: Dyspnea Comparison: 05/22/2019 A single view chest radiograph was obtained. Findings: The heart is mildly enlarged. Pulmonary vascularity appears slightly prominent but may be similar to the last occasion accounting for the lower lung volumes. Lower cervical 3 level fusion noted once again. Bones are osteopenic. Aorta is mildly calcified. IMPRESSION: No acute disease CT CHEST: There is breathing motion limiting evaluation. There is a small patch of groundglass opacity in the lingula. The lungs are clear otherwise. No mediastinal or hilar adenopathy are identified. Aorta is mildly calcified. No pleural or pericardial effusions are identified. The heart is unremarkable. CT ABDOMEN/PELVIS: There is a 2.4 x 3.3 cm low-density left adrenal mass. There is no free fluid. Bowel gas pattern appears normal. No abnormalities of solid organs appreciated. No nephrolithiasis or hydronephrosis appreciated. Bladder is unremarkable. There are small bilateral inguinal hernias containing fat IMPRESSION: Lingular infiltrate suspected. Correlate clinically. Evaluation limited by motion. 3.3 x 2.4 cm left adrenal mass. This may be an adenoma and may be confirmed by MR. Microbiology Date/Time Source Procedure Growth Status 05/25/19 05:43 Blood Blood Culture - Preliminary NO GROWTH AFTER 24 HOURS Resulted 05/22/19 23:20 Nasal Nares MRSA Culture - Final NO METHICILLIN RESISTANT STAPH AUREUS... Complete 05/22/19 23:20 Rectum - Final NO CARBAPENEM-RESISTANT ENTEROBACTERI... Complete Microbiology Date/Time Source Procedure Growth Status 05/25/19 05:43 Blood Blood Culture - Preliminary NO GROWTH AFTER 24 HOURS Resulted 05/25/19 05:33 Blood Blood Culture - Preliminary NO GROWTH AFTER 24 HOURS Resulted Laboratory Tests Test 05/25/19 19:10 05/26/19 05:37 05/26/19 11:10 Sodium Level 137 MMOL/L (136-145) 135 MMOL/L (136-145) L Potassium Level 4.2 MMOL/L (3.5-5.1) 3.7 MMOL/L (3.5-5.1) Chloride Level 102 MMOL/L (98-107) 100 MMOL/L (98-107) Carbon Dioxide Level 26 MMOL/L (21-32) 25 MMOL/L (21-32) Anion Gap 10 mmol/L (5-15) 10 mmol/L (5-15) Blood Urea Nitrogen 14 mg/dL (7-18) 12 mg/dL (7-18) Creatinine 0.8 MG/DL (0.55-1.30) 0.8 MG/DL (0.55-1.30) Estimat Glomerular Filtration Rate > 60 mL/min (>60) > 60 mL/min (>60) Glucose Level 187 MG/DL (74-106) H 164 MG/DL (74-106) H Calcium Level 8.5 MG/DL (8.5-10.1) 8.4 MG/DL (8.5-10.1) L Phosphorus Level 2.5 MG/DL (2.5-4.9) 2.7 MG/DL (2.5-4.9) Magnesium Level 1.9 MG/DL (1.8-2.4) 1.8 MG/DL (1.8-2.4) White Blood Count 16.4 K/UL (4.8-10.8) H Red Blood Count 3.87 M/UL (4.70-6.10) L Hemoglobin 11.5 G/DL (14.2-18.0) L Hematocrit 33.1 % (42.0-52.0) L Mean Corpuscular Volume 85 FL (80-99) Mean Corpuscular Hemoglobin 29.8 PG (27.0-31.0) Mean Corpuscular Hemoglobin Concent 34.9 G/DL (32.0-36.0) Red Cell Distribution Width 13.0 % (11.6-14.8) Platelet Count 411 K/UL (150-450) Mean Platelet Volume 5.8 FL (6.5-10.1) L Neutrophils (%) (Auto) 71.1 % (45.0-75.0) Lymphocytes (%) (Auto) 15.4 % (20.0-45.0) L Monocytes (%) (Auto) 10.9 % (1.0-10.0) H Eosinophils (%) (Auto) 1.4 % (0.0-3.0) Basophils (%) (Auto) 1.1 % (0.0-2.0) Uric Acid 1.4 MG/DL (2.6-7.2) L Total Bilirubin 0.5 MG/DL (0.2-1.0) Aspartate Amino Transf (AST/SGOT) 72 U/L (15-37) H Alanine Aminotransferase (ALT/SGPT) 71 U/L (12-78) Alkaline Phosphatase 63 U/L (46-116) Total Creatine Kinase 1199 U/L (26-308) H Total Protein 6.3 G/DL (6.4-8.2) L Albumin 2.9 G/DL (3.4-5.0) L Globulin 3.4 g/dL Albumin/Globulin Ratio 0.9 (1.0-2.7) L Thyroid Stimulating Hormone (TSH) 0.355 uiU/mL (0.358-3.740) Free Thyroxine 2.09 NG/DL (0.76-1.46) H Free Triiodothyronine 1.9 pg/mL (2.3-4.2) L Vancomycin Level Trough 11.4 ug/mL (5.0-12.0) Current Medications Medications (Trade) Dose Ordered Sig/Syd Route PRN Reason Start Time Stop Time Status Last Admin Dose Admin Aspirin (ASA) 81 mg DAILY ORAL 05/23/19 14:45 07/07/19 14:44 05/26/19 09:52 Dextrose (Dextrose 50%) 25 ml Q30M PRN IV Hypoglycemia 05/23/19 01:30 08/21/19 01:29 Dextrose (Dextrose 50%) 50 ml Q30M PRN IV Hypoglycemia 05/23/19 01:30 08/21/19 01:29 Diltiazem HCl (Cardizem) 30 mg EVERY 8 HOURS ORAL 05/26/19 14:00 06/25/19 13:59 05/26/19 15:38 Docusate Sodium (Colace) 100 mg THREE TIMES A DAY ORAL 05/23/19 18:00 06/22/19 17:59 05/26/19 15:37 Folic Acid (Folate) 5 mg DAILY ORAL 05/24/19 10:00 06/23/19 09:59 05/26/19 09:52 Heparin Sodium (Porcine) (Heparin 5000 units/ml) 5,000 units EVERY 12 HOURS SUBQ 05/23/19 12:00 07/07/19 11:59 05/26/19 09:56 Hydralazine HCl (Apresoline) 10 mg Q6H PRN ORAL SBP > 160mmHg 05/26/19 08:00 08/24/19 07:59 Insulin Aspart (NovoLOG) BEFORE MEALS AND HS SUBQ 05/23/19 06:30 08/21/19 06:29 05/26/19 15:36 Levothyroxine Sodium (Synthroid) 300 mcg DAILY@0630 ORAL 05/23/19 06:30 06/22/19 06:29 05/26/19 07:00 Nitroglycerin (Ntg) 1 patch Q24H TDERMAL 05/23/19 14:45 06/22/19 14:44 05/26/19 15:38 Ondansetron HCl (Zofran) 4 mg Q6H PRN IVP Nausea & Vomiting 05/24/19 22:30 06/23/19 22:29 05/25/19 05:18 Pantoprazole (Protonix) 40 mg EVERY 12 HOURS ORAL 05/23/19 21:00 06/22/19 20:59 05/26/19 09:52 Phosphorus (Phospha 250 Neutral) 250 mg THREE TIMES A DAY ORAL 05/25/19 18:00 06/24/19 17:59 05/26/19 15:37 Piperacillin Sod/ Tazobactam Sod 3.375 gm/Sodium Chloride 110 ml @ 27.5 mls/hr EVERY 8 HOURS IVPB 05/23/19 14:00 05/28/19 13:59 05/26/19 15:37 Simethicone (Mylicon) 80 mg TID ORAL 05/24/19 13:00 05/27/19 12:59 05/26/19 15:38 Tamsulosin HCl (Flomax) 0.4 mg BEDTIME ORAL 05/23/19 21:00 06/22/19 20:59 05/25/19 21:14 Vancomycin HCl (Vanco rx to dose) 1 ea DAILY PRN MISC Per rx protocol 05/23/19 10:30 06/22/19 10:29 Vancomycin/Sodium Chloride 275 ml @ 137.5 mls/ hr Q12HR@0200,1400 IVPB 05/26/19 14:00 05/31/19 13:59 05/26/19 16:01 Stu Fitch MD May 26, 2019 16:44
[2019-05-26] MEDS ORDERED: cefTRIAXone 1 GM in D5W 50 ML IVPB SCH (17:00)
[2019-05-26 20:00] VITALS: BP 141/74
[2019-05-26] MEDS: Tamsulosin 0.4mg cap ORAL SCH (21:07)
[2019-05-26] MEDS ORDERED: Piperacillin/Tazobactam 3.375 GM in D5W 110 ML IVPB SCH (22:00)
[2019-05-27] VITALS: BP 132/81
[2019-05-27] MEDS ORDERED: Zolpidem 5mg tab ORAL SCH
--- NOTE | 2019-05-27 00:15 | Consultation ---
DATE OF CONSULTATION: 05/26/2019 CARDIOLOGY CONSULTATION CONSULTING PHYSICIAN: Abel Castaneda M.D. REFERRING PHYSICIAN: Sheri Sherman M.D. REASON FOR CONSULTATION: Management of hypertension and rule out endocarditis in a patient with bacteremia and also elevated troponin. HISTORY OF PRESENT ILLNESS: The patient is a 63-year-old gentleman with history of hypertension and xte-zsyrpty-[id number] diabetes as well as narcolepsy, chronic back pain, and hypothyroidism, who was brought to the emergency room with altered mental status of two days. In the ER, the patient was found to be dehydrated with rhabdomyolysis, CK more than 15,000 as well as white count of 28,000. The patient was admitted and subsequently was found to have negative bacteremia. Cardiology consultation was requested for consideration for possible transesophageal echocardiogram to rule out endocarditis, as transthoracic echocardiogram showed no vegetation. REVIEW OF SYSTEMS: Negative other than what was mentioned in the history of present illness. PAST MEDICAL HISTORY: As mentioned above. FAMILY HISTORY: Noncontributory. SOCIAL HISTORY: He lives at home. Does not smoke or drink alcohol. PHYSICAL EXAMINATION: VITAL SIGNS: Show blood pressure of 126/77, pulse 103, respirations 18, and temperature 98. HEAD AND NECK: Showed no JVD. LUNGS: Clear. CARDIOVASCULAR: Regular, S1 and S2 with no gallop or murmur. ABDOMEN: Soft. EXTREMITIES: A 1+ pitting edema and ecchymosis around left side of his face. LABORATORY AND DIAGNOSTIC DATA: His labs show white count initially was 27.7 and currently 16.4, hemoglobin is 11.5, hematocrit 33, and platelet count 411,000. Sodium is 135, potassium 3.7, of 12, 0.8, and 164. His CPK was 15,000. Initial troponin was 0.375. His CK went to 1199 and subsequent CPK of 1100. His BUN is 18, creatinine 0.7, but initial was 64/1.4. ASSESSMENT AND PLAN: 1. Troponin leak. The patient does not have any chest pain, likely due to the patient's renal failure. Currently, he does not have any chest pain and his echocardiogram showed EF of 65%. 2. Staphylococcus bacteremia. Echocardiogram showed no evidence of vegetation. However, we will consider transesophageal echocardiogram to rule out any perivalvular abscess. 3. Episodes of supraventricular tachycardia of sudden onset and sudden termination with heart rate going as high as 250 beats per minute. with PVC. We will watch the patient on telemetry. Continue Cardizem 30 mg every 8 hours. 4. Hypertension, on Cardizem and p.r.n. hydralazine. 5. Staphylococcus bacteremia, on IV antibiotic. We will order transesophageal echocardiogram. 6. History of acute renal failure with rhabdomyolysis has improved with hydration. 7. Diabetes. 8. Positive urine toxicology screen for marijuana, amphetamine, and opiates. Thank you very much for allowing me to participate in the care of this patient. Please do not hesitate to contact me if you have any questions regarding my evaluation. Abel Castaneda M.D. DR: Hailey JOB#: [id number] CC:
[2019-05-27] MEDS ORDERED: HydrALAZINE 10mg Tab ORAL PRN (02:00)
[2019-05-27] MEDS: Vancomycin 1.5gm/NS Premix 275 ML IVPB SCH ×2 (02:11→14:05)
[2019-05-27 04:00] VITALS: BP 120/70
[2019-05-27] MEDS: Piperacillin/Tazobactam 3.375 GM in D5W 110 ML IVPB SCH ×3 (05:04→21:29)
[2019-05-27] MEDS: dilTIAZem HCl 30mg tab ORAL SCH ×3 (06:10→21:29)
[2019-05-27] MEDS: NovoLOG Insulin Flexpen SUBQ SCH ×4 (06:11→21:35)
[2019-05-27 08:00] VITALS: BP 109/78
[2019-05-27] MEDS: Aspirin Baby 81mg ORAL SCH (08:44)
[2019-05-27] MEDS: Docusate 100mg cap ORAL SCH ×3 (08:44→17:18)
[2019-05-27] MEDS: Simethicone 80mg tab ORAL SCH ×3 (08:45→17:18)
[2019-05-27] MEDS: Heparin 5000 units/ml inj SUBQ SCH ×2 (08:47→21:39)
[2019-05-27] MEDS ORDERED: Phospha 250 Neutral tab ORAL SCH (09:00)
[2019-05-27 09:33] LABS: HEMATOCRIT 33.6 % (42.0-52.0); HEMOGLOBIN 11.5 G/DL (14.2-18.0); MEAN CORPUSCULAR VOLUME 84 FL (80-99); PLATELET COUNT 365 K/UL (150-450); RED BLOOD COUNT 3.98 M/UL (4.70-6.10); RED CELL DISTRIBUTION WIDTH 12.6 % (11.6-14.8)
[2019-05-27 09:36] LABS: WHITE BLOOD COUNT 24.4 K/UL (4.8-10.8)
[2019-05-27 09:56] LABS: ALANINE AMINOTRANSFERASE 67 U/L (12-78); ALBUMIN 2.8 G/DL (3.4-5.0); ALBUMIN/GLOBULIN RATIO 0.8 (1.0-2.7); ALKALINE PHOSPHATASE 68 U/L (46-116); ANION GAP 9 mmol/L (5-15); ASPARTATE AMINO TRANSFERASE 43 U/L (15-37); BILIRUBIN,TOTAL 0.5 MG/DL (0.2-1.0); BLOOD UREA NITROGEN 13 mg/dL (7-18); CALCIUM 8.5 MG/DL (8.5-10.1); CARBON DIOXIDE 25 MMOL/L (21-32); CHLORIDE 99 MMOL/L (98-107); CREATININE 0.9 MG/DL (0.55-1.30); POTASSIUM 3.5 MMOL/L (3.5-5.1); SODIUM 133 MMOL/L (136-145)
[2019-05-27 09:58] LABS: CREATINE KINASE 574 U/L (26-308)
--- NOTE | 2019-05-27 11:55 | General Progress Note ---
Assessment/Plan Assessment/Plan: 63 YO M with hx of narcolepsy, chronic back pain, hypothyroidism, and diabetes mellitus presenting with GLF and AMS after 2-day period of prolonged sleeping episode. In the ED, patient was found to be clinically dehydrated and the medical work up was suggestive of rhabdomyolysis (CK> 58500) and Leukocytosis (WBC: 22648) #Bacteremia - Staph coag neg #Leukocytosis #Left Lingular Infiltrate possible CAP #Lactic acidosis: resolved -CT chest w/left lingular infiltrate -WBC:27>>25>>17>>14.5>>16 -Influenza swab negative. -Blood culture x 2 with Staph epi -repeat BCx on 05/24: NGTD 24 hrs -TTE negative for vegetations -GI as per Cardiology recs -Continue abx per ID #Rhabdomyolysis #BETSY - resolved #Dehydration #Poor oral intake -Serum CK :69513>>6900>>2181>>1600>>1199 -s/p 3L of IV N.S in the ED. -Initially on 150cc/hr of IV N.S; then 75 cc/hr. -Off IV fluids -Encourage PO intake. -Strict I's and O's -Avoid nephrotoxins -Renal following #HTN #PVCs #Elevated troponin: downtrending -Likely 2/2 demand ischemia in the setting of severe dehydration. -Serum Troponin 0.375, 0.133, 0.059, EKG non-suggestive of any ST segment or T wave abnormalities. -Continuous cardiac monitoring. -contCoreg -hydralazine PRN for SBP >160 -Mg, Phos levels normal -Cardio following #GLF: -CT Head suggestive of left sided scalp hematoma; No evidence of intracranial bleed. -CT Chest/Abdomen/Pelvis non suggestive of any signs of intraabdominal bleed/ rib fracture -Brain and cervical MRI reviewed, brain MRI with mild atrophy, CT C-spine with C4-5 moderate central spinal stenosis and evidence of previous fusion -UDS positive for marijuana, opiates and amphetamines -PT/OT -fall precautions #type II DM: -HgbA1C 6.8 -Diabetic diet. -Insulin Sliding scale. #Hx of Narcolepsy: -MRI brain negative for acute process -Continue to monitor. -Avoid sedatives. -Fall precaution. -Neurology consulted: holding home Adderall while in-pt #Left Adrenal Adenoma -seen on CT abd -MRI abd with evidence of left adrenal adenoma -pt to f/u o/p w/PCP for repeat imaging in 6 months - 1 year #Hx of Depression: #Anxiety -Resume home medication. -ativan PRN #chronic back pain: -Resume home medication. -PT/OT #Hypothyroidism: -Resume home levothyroxine. Electrolyte: Monitor and replete PRN Nutrition: Diabetic Diet. DVT PPX: SUb Q Heparin. Time spent on encounter: 36 mins, >50% on counseling, coordination of care. I spent an additional 35 minutes on review of medical records including prior hospital records, consult notes, progress notes, procedures, imaging, labs, hemodynamics, and other clinical documentation. Subjective Date patient seen: May 27, 2019 Time patient seen: 07:36 ROS Limited/Unobtainable: No Constitutional: Denies: chills, fever Cardiovascular: Denies: chest pain Respiratory: Denies: cough Gastrointestinal/Abdominal: Denies: abdomen distended, abdominal pain Allergies: Coded Allergies: No Known Allergies (Unverified , 05/22/19) Subjective Follow up for rhabdo, BETSY, Coag neg staph bacteremia Feeling well, no new complaints. Objective Last 24 Hour Vital Signs Date Time Temp Pulse Resp B/P (MAP) Pulse Ox O2 Delivery O2 Flow Rate FiO2 05/27/19 09:00 Room Air Room Air 05/27/19 08:00 98.0 112 19 109/78 (88) 94 05/27/19 06:10 109 125/76 05/27/19 04:00 97.9 105 20 120/70 (87) 97 05/27/19 00:00 107 05/27/19 00:00 98.1 107 18 132/81 (98) 94 05/26/19 21:08 105 141/74 05/26/19 21:00 Room Air Room Air 05/26/19 20:00 113 05/26/19 20:00 97.7 105 19 141/74 (96) 93 05/26/19 16:00 109 05/26/19 16:00 98.0 100 20 130/75 (93) 97 05/26/19 15:38 103 126/77 05/26/19 15:38 126/77 05/26/19 12:00 98.0 103 20 126/77 (93) 96 05/26/19 12:00 106 Intake and Output 05/26/19 05/27/19 19:00 07:00 Intake Total 1000 ml 500 ml Output Total 2400 ml 560 ml Balance -1400 ml -60 ml Intake Oral 1000 ml 500 ml Output Urine Total 2400 ml 560 ml # Voids 8 # Bowel Movements 2 Laboratory Tests 05/27/19 09:00: White Blood Count 24.4*H, Red Blood Count 3.98L, Hemoglobin 11.5L, Hematocrit 33.6L, Mean Corpuscular Volume 84, Mean Corpuscular Hemoglobin 29.0, Mean Corpuscular Hemoglobin Concent 34.3, Red Cell Distribution Width 12.6, Platelet Count 365, Mean Platelet Volume 6.1L, Neutrophils (%) (Auto) , Lymphocytes (%) ( Auto) , Monocytes (%) (Auto) , Eosinophils (%) (Auto) , Basophils (%) (Auto) , Differential Total Cells Counted 100, Neutrophils % (Manual) 81H, Lymphocytes % (Manual) 11L, Monocytes % (Manual) 8, Eosinophils % (Manual) 0, Basophils % ( Manual) 0, Band Neutrophils 0, Platelet Estimate Adequate, Platelet Morphology Normal, Red Blood Cell Morphology Normal, Sodium Level 133L, Potassium Level 3.5 , Chloride Level 99, Carbon Dioxide Level 25, Anion Gap 9, Blood Urea Nitrogen 13, Creatinine 0.9, Estimat Glomerular Filtration Rate > 60, Glucose Level 229H , Calcium Level 8.5, Total Bilirubin 0.5, Aspartate Amino Transf (AST/SGOT) 43H , Alanine Aminotransferase (ALT/SGPT) 67, Alkaline Phosphatase 68, Total Creatine Kinase 574H, Troponin I 0.203H, Pro-B-Type Natriuretic Peptide 88772O, Total Protein 6.2L, Albumin 2.8L, Globulin 3.4, Albumin/Globulin Ratio 0.8L Height (Feet): 5 Height (Inches): 7.00 Weight (Pounds): 225 General Appearance: no apparent distress, alert Cardiovascular: normal rate, regular rhythm Respiratory/Chest: lungs clear, normal breath sounds Abdomen: non tender, soft Extremities: normal range of motion, non-tender Ander Dye MD May 27, 2019 11:55
[2019-05-27 12:00] VITALS: BP 123/80
[2019-05-27] MEDS ORDERED: HydrALAZINE 25mg tab ORAL PRN (12:30)
--- NOTE | 2019-05-27 12:32 | Nephrology Progress Note ---
Assessment/Plan Problem List: (1) BETSY (acute kidney injury) (2) Rhabdomyolysis Assessment: Dehydration (3) Narcolepsy (4) Diabetes Assessment: Presents with hyperglycemia (5) Hypothyroidism Assessment: The thyroid function tests not indicative of hyperthyroidism Assessment Acute kidney injury, Rhabdomyolysis, Dehydration, Diabetes mellitus type 2 with blood sugar out of control, Chronic pain, substance abuse, Urine positive for amphetamine, opiates, marijuana, Hypothyroidism, Narcolepsy, Plan Plan: Hold Synthroid 300 mcg/day and cut it down to 100 mcg starting May 29-as thyroid function tests indicates Stop IV hydration now Changed Norvasc to Cardizem Since white BCs are rising and patient is bacteremic GI to be considered Check thyroid function tests as the patient is on thyroid supplements and is tachycardic Correct abnormal electrolytes, oral potassium supplements at this time Monitor CPK and renal parameters both are improving Oral folic acid Keep the blood sugar and blood pressure in check Stool softener Protonix p.o. 2D echocardiogram Flomax at bedtime Per orders Subjective ROS Limited/Unobtainable: No Constitutional: Reports: malaise Objective Objective Last 24 Hour Vital Signs Date Time Temp Pulse Resp B/P (MAP) Pulse Ox O2 Delivery O2 Flow Rate FiO2 05/27/19 12:00 98.1 104 18 123/80 (94) 95 05/27/19 09:00 Room Air Room Air 05/27/19 08:00 98.0 112 19 109/78 (88) 94 05/27/19 06:10 109 125/76 05/27/19 04:00 97.9 105 20 120/70 (87) 97 05/27/19 00:00 107 05/27/19 00:00 98.1 107 18 132/81 (98) 94 05/26/19 21:08 105 141/74 05/26/19 21:00 Room Air Room Air 05/26/19 20:00 113 05/26/19 20:00 97.7 105 19 141/74 (96) 93 05/26/19 16:00 109 05/26/19 16:00 98.0 100 20 130/75 (93) 97 05/26/19 15:38 103 126/77 05/26/19 15:38 126/77 Intake and Output 05/26/19 05/27/19 19:00 07:00 Intake Total 1000 ml 500 ml Output Total 2400 ml 560 ml Balance -1400 ml -60 ml Intake Oral 1000 ml 500 ml Output Urine Total 2400 ml 560 ml # Voids 8 # Bowel Movements 2 Laboratory Tests 05/27/19 09:00: White Blood Count 24.4*H, Red Blood Count 3.98L, Hemoglobin 11.5L, Hematocrit 33.6L, Mean Corpuscular Volume 84, Mean Corpuscular Hemoglobin 29.0, Mean Corpuscular Hemoglobin Concent 34.3, Red Cell Distribution Width 12.6, Platelet Count 365, Mean Platelet Volume 6.1L, Neutrophils (%) (Auto) , Lymphocytes (%) ( Auto) , Monocytes (%) (Auto) , Eosinophils (%) (Auto) , Basophils (%) (Auto) , Differential Total Cells Counted 100, Neutrophils % (Manual) 81H, Lymphocytes % (Manual) 11L, Monocytes % (Manual) 8, Eosinophils % (Manual) 0, Basophils % ( Manual) 0, Band Neutrophils 0, Platelet Estimate Adequate, Platelet Morphology Normal, Red Blood Cell Morphology Normal, Sodium Level 133L, Potassium Level 3.5 , Chloride Level 99, Carbon Dioxide Level 25, Anion Gap 9, Blood Urea Nitrogen 13, Creatinine 0.9, Estimat Glomerular Filtration Rate > 60, Glucose Level 229H , Calcium Level 8.5, Total Bilirubin 0.5, Aspartate Amino Transf (AST/SGOT) 43H , Alanine Aminotransferase (ALT/SGPT) 67, Alkaline Phosphatase 68, Total Creatine Kinase 574H, Troponin I 0.203H, Pro-B-Type Natriuretic Peptide 87049G, Total Protein 6.2L, Albumin 2.8L, Globulin 3.4, Albumin/Globulin Ratio 0.8L Height (Feet): 5 Height (Inches): 7.00 Weight (Pounds): 225 General Appearance: no apparent distress Cardiovascular: tachycardia Respiratory/Chest: decreased breath sounds Abdomen: soft Objective No change Delta Boswell MD May 27, 2019 12:32
--- NOTE | 2019-05-27 14:01 | Cardiac Electrophysiology PN ---
Assessment/Plan Assessment/Plan 1. Troponin leak. The patient does not have any chest pain, likely due to the patient's renal failure and demand ischemia . Currently, he does not have any chest pain and his echocardiogram showed EF of 65%. Stress test after sepsis is resolved 2. Staphylococcus bacteremia. Echocardiogram showed no evidence of vegetation. Transesophageal echocardiogram pending 3. Episodes of supraventricular tachycardia of sudden onset and sudden termination with heart rate going as high as 250 beats per minute. with PVC. Continue Cardizem 30 mg every 8 hours. 4. Hypertension, on Cardizem and p.r.n. hydralazine. 5. Short run of nonsustained VT 6. Staphylococcus bacteremia, on IV antibiotic. Awaiting transesophageal echocardiogram. 7. History of acute renal failure with rhabdomyolysis has improved with hydration. 8. Diabetes. 9. Positive urine toxicology screen for marijuana, amphetamine, and opiates. STEVE RN Subjective Subjective Alert in NAD. No CP or SOB Objective Last 24 Hour Vital Signs Date Time Temp Pulse Resp B/P (MAP) Pulse Ox O2 Delivery O2 Flow Rate FiO2 05/27/19 13:01 104 123/80 05/27/19 12:00 98.1 104 18 123/80 (94) 95 05/27/19 09:00 Room Air Room Air 05/27/19 08:00 98.0 112 19 109/78 (88) 94 05/27/19 06:10 109 125/76 05/27/19 04:00 97.9 105 20 120/70 (87) 97 05/27/19 00:00 107 05/27/19 00:00 98.1 107 18 132/81 (98) 94 05/26/19 21:08 105 141/74 05/26/19 21:00 Room Air Room Air 05/26/19 20:00 113 05/26/19 20:00 97.7 105 19 141/74 (96) 93 05/26/19 16:00 109 05/26/19 16:00 98.0 100 20 130/75 (93) 97 05/26/19 15:38 103 126/77 05/26/19 15:38 126/77 Intake and Output 05/26/19 05/27/19 19:00 07:00 Intake Total 1000 ml 500 ml Output Total 2400 ml 560 ml Balance -1400 ml -60 ml Intake Oral 1000 ml 500 ml Output Urine Total 2400 ml 560 ml # Voids 8 # Bowel Movements 2 Laboratory Tests Test 05/27/19 09:00 05/27/19 12:25 White Blood Count 24.4 K/UL (4.8-10.8) *H Red Blood Count 3.98 M/UL (4.70-6.10) L Hemoglobin 11.5 G/DL (14.2-18.0) L Hematocrit 33.6 % (42.0-52.0) L Mean Corpuscular Volume 84 FL (80-99) Mean Corpuscular Hemoglobin 29.0 PG (27.0-31.0) Mean Corpuscular Hemoglobin Concent 34.3 G/DL (32.0-36.0) Red Cell Distribution Width 12.6 % (11.6-14.8) Platelet Count 365 K/UL (150-450) Mean Platelet Volume 6.1 FL (6.5-10.1) L Neutrophils (%) (Auto) % (45.0-75.0) Lymphocytes (%) (Auto) % (20.0-45.0) Monocytes (%) (Auto) % (1.0-10.0) Eosinophils (%) (Auto) % (0.0-3.0) Basophils (%) (Auto) % (0.0-2.0) Differential Total Cells Counted 100 Neutrophils % (Manual) 81 % (45-75) H Lymphocytes % (Manual) 11 % (20-45) L Monocytes % (Manual) 8 % (1-10) Eosinophils % (Manual) 0 % (0-3) Basophils % (Manual) 0 % (0-2) Band Neutrophils 0 % (0-8) Platelet Estimate Adequate Platelet Morphology Normal Red Blood Cell Morphology Normal Sodium Level 133 MMOL/L (136-145) L Potassium Level 3.5 MMOL/L (3.5-5.1) Chloride Level 99 MMOL/L (98-107) Carbon Dioxide Level 25 MMOL/L (21-32) Anion Gap 9 mmol/L (5-15) Blood Urea Nitrogen 13 mg/dL (7-18) Creatinine 0.9 MG/DL (0.55-1.30) Estimat Glomerular Filtration Rate > 60 mL/min (>60) Glucose Level 229 MG/DL (74-106) H Calcium Level 8.5 MG/DL (8.5-10.1) Total Bilirubin 0.5 MG/DL (0.2-1.0) Aspartate Amino Transf (AST/SGOT) 43 U/L (15-37) H Alanine Aminotransferase (ALT/SGPT) 67 U/L (12-78) Alkaline Phosphatase 68 U/L (46-116) Total Creatine Kinase 574 U/L (26-308) H Troponin I 0.203 ng/mL (0.000-0.056) 0.162 ng/mL (0.000-0.056) Pro-B-Type Natriuretic Peptide 22005 pg/mL (0-125) H Total Protein 6.2 G/DL (6.4-8.2) L Albumin 2.8 G/DL (3.4-5.0) L Globulin 3.4 g/dL Albumin/Globulin Ratio 0.8 (1.0-2.7) L Microbiology Date/Time Source Procedure Growth Status 05/25/19 05:43 Blood Blood Culture - Preliminary NO GROWTH AFTER 24 HOURS Resulted 05/25/19 05:33 Blood Blood Culture - Preliminary NO GROWTH AFTER 24 HOURS Resulted Objective HEAD AND NECK: No JVD. LUNGS: Clear. CARDIOVASCULAR: Regular, S1 and S2 with no gallop or murmur. ABDOMEN: Soft. EXTREMITIES: 1+ pitting edema and ecchymosis around left side of his face. Abel Castaneda MD May 27, 2019 14:01
--- NOTE | 2019-05-27 14:12 | Surgery Progress Note ---
Surgery Progress Note Subjective Symptoms: improved Objective Last 24 Hour Vital Signs Date Time Temp Pulse Resp B/P (MAP) Pulse Ox O2 Delivery O2 Flow Rate FiO2 05/27/19 14:06 123/80 05/27/19 13:01 104 123/80 05/27/19 12:00 98.1 104 18 123/80 (94) 95 05/27/19 09:00 Room Air Room Air 05/27/19 08:00 98.0 112 19 109/78 (88) 94 05/27/19 06:10 109 125/76 05/27/19 04:00 97.9 105 20 120/70 (87) 97 05/27/19 00:00 107 05/27/19 00:00 98.1 107 18 132/81 (98) 94 05/26/19 21:08 105 141/74 05/26/19 21:00 Room Air Room Air 05/26/19 20:00 113 05/26/19 20:00 97.7 105 19 141/74 (96) 93 05/26/19 16:00 109 05/26/19 16:00 98.0 100 20 130/75 (93) 97 05/26/19 15:38 103 126/77 05/26/19 15:38 126/77 I&O Intake and Output 05/26/19 05/27/19 19:00 07:00 Intake Total 1000 ml 500 ml Output Total 2400 ml 560 ml Balance -1400 ml -60 ml Intake Oral 1000 ml 500 ml Output Urine Total 2400 ml 560 ml # Voids 8 # Bowel Movements 2 Dressing: dry Wound: clean Cardiovascular: RSR Respiratory: clear Abdomen: soft, non-tender, present bowel sounds Extremities: no edema, no tenderness Laboratory Tests Test 05/27/19 09:00 05/27/19 12:25 White Blood Count 24.4 K/UL (4.8-10.8) *H Red Blood Count 3.98 M/UL (4.70-6.10) L Hemoglobin 11.5 G/DL (14.2-18.0) L Hematocrit 33.6 % (42.0-52.0) L Mean Corpuscular Volume 84 FL (80-99) Mean Corpuscular Hemoglobin 29.0 PG (27.0-31.0) Mean Corpuscular Hemoglobin Concent 34.3 G/DL (32.0-36.0) Red Cell Distribution Width 12.6 % (11.6-14.8) Platelet Count 365 K/UL (150-450) Mean Platelet Volume 6.1 FL (6.5-10.1) L Neutrophils (%) (Auto) % (45.0-75.0) Lymphocytes (%) (Auto) % (20.0-45.0) Monocytes (%) (Auto) % (1.0-10.0) Eosinophils (%) (Auto) % (0.0-3.0) Basophils (%) (Auto) % (0.0-2.0) Differential Total Cells Counted 100 Neutrophils % (Manual) 81 % (45-75) H Lymphocytes % (Manual) 11 % (20-45) L Monocytes % (Manual) 8 % (1-10) Eosinophils % (Manual) 0 % (0-3) Basophils % (Manual) 0 % (0-2) Band Neutrophils 0 % (0-8) Platelet Estimate Adequate Platelet Morphology Normal Red Blood Cell Morphology Normal Sodium Level 133 MMOL/L (136-145) L Potassium Level 3.5 MMOL/L (3.5-5.1) Chloride Level 99 MMOL/L (98-107) Carbon Dioxide Level 25 MMOL/L (21-32) Anion Gap 9 mmol/L (5-15) Blood Urea Nitrogen 13 mg/dL (7-18) Creatinine 0.9 MG/DL (0.55-1.30) Estimat Glomerular Filtration Rate > 60 mL/min (>60) Glucose Level 229 MG/DL (74-106) H Calcium Level 8.5 MG/DL (8.5-10.1) Total Bilirubin 0.5 MG/DL (0.2-1.0) Aspartate Amino Transf (AST/SGOT) 43 U/L (15-37) H Alanine Aminotransferase (ALT/SGPT) 67 U/L (12-78) Alkaline Phosphatase 68 U/L (46-116) Total Creatine Kinase 574 U/L (26-308) H Troponin I 0.203 ng/mL (0.000-0.056) 0.162 ng/mL (0.000-0.056) Pro-B-Type Natriuretic Peptide 04919 pg/mL (0-125) H Total Protein 6.2 G/DL (6.4-8.2) L Albumin 2.8 G/DL (3.4-5.0) L Globulin 3.4 g/dL Albumin/Globulin Ratio 0.8 (1.0-2.7) L Plan Problems: (1) Adrenal mass Assessment & Plan: There is a 3 x 2.3 x 2.7 cm ovoid left adrenal mass. The mass exhibits similar signal intensity to the spleen on T1-weighted images and is slightly decreased in signal on T2-weighted images relative to the liver and spleen. On T1 gradient echo (out of phase relative to in phase), the mass shows uniformly diminished signal intensity, which is indicative of chemical shift artifact due to presence of micro-lipid. This finding is pathopneumonic for a benign adrenal adenoma. No further evaluation or follow-up is necessary. The gallbladder is contracted at the time of this scan. There is no biliary ductal dilatation. There is no hydronephrosis or free fluid. Small hiatal hernia is noted. no further imaging needed adenoma f/u 1 year (2) Leukocytosis Assessment & Plan: gram + bacteremia, sepsis, leukocytosis, possible pna, infiltrate seen on CT chest, hx thrush on zosyn and vanco labs improving will monitor (3) Skin ulcer Assessment & Plan: Pt presented on admission with multiple skin breakdown. Pt S /P fall in community. Pt stated he was unable to get up and was laying on floor in his home for few days. Category 2 Skin tear R forearm. 20% flap loss,80% skin flap in-situ. No exudate noted. No erythema or elevation in skin temp at site or periwound. Category 2 Skin tear L elbow. Base of wound is erythematous with 10%flap loss. Large open DTPI noted to L trochanter/L hip. Base of wound is purple/maroon and indurated (L)9.5cm x (W)11.6cm. Wound is center is moist and beefy red (L)5.5cm x (W)8.5cm. No odor or exudate noted. No further skin breakdown periwound. Inferior to L trochanteric wound, but in close proximity is a square shaped area that is pink at base with red and indurated margins. No erythema or evidence of skin breakdown noted to Sacrum. DTPI L heel and lateral aspect. Base of injury is maroon,fluctuant with delineated margins.(L)3cm x (W)5cm.No erythema or signs of further skin breakdown periwound. Unstageable Pressure injury to distal/lateral L foot . Base of wound is erythematous with 20% slough at center of wound. NO other areas of skin breakdown noted. Tx.Plan: Cleanse Skin tear R forearm with Saline. Apply Silvasorb Gel. Cover with Optifoam drsg. Change every 7 days and prn. Cover L elbow with OPtifoam drsg. Change every 7 days and prn. Cleanse L trochanter with Saline. Apply TheraHoney to wound. Apply Cavilon Skin Barrier periwound. Cover with Optifoam drsg every 3 days and prn. Apply Moisture Barrier to Sacrum. Cover with Optifoam drsg.Changee very 3 days and prn. Apply Cavilon Skin Barrier to both heels. Cover each heel with Optifoam drsg. Change every 7 days and prn. Swab wound distal /lateral L foot with Betadine. Cover with Optifoam drsg. Change every 3 days and prn. Reposition at least every 2hours or as tolerated. Off-load heels with pillow. Chi Luque May 27, 2019 14:12
[2019-05-27] MEDS ORDERED: Nitroglycerin Patch 0.4mg TDERMAL SCH (14:45)
[2019-05-27 16:00] VITALS: BP 135/80
[2019-05-27 20:00] VITALS: BP 119/96
[2019-05-27] MEDS ORDERED: Tamsulosin 0.4mg cap ORAL SCH (21:00)
[2019-05-27] MEDS ORDERED: TraZODone HCl 25 mg tablet ORAL SCH (22:00)
[2019-05-28] VITALS: BP 130/80
[2019-05-28] MEDS: Vancomycin 1.5gm/NS Premix 275 ML IVPB SCH (02:30)
[2019-05-28 04:56] LABS: HEMOGLOBIN 11.1 G/DL (14.2-18.0); MEAN CORPUSCULAR VOLUME 85 FL (80-99); PLATELET COUNT 380 K/UL (150-450); RED BLOOD COUNT 3.76 M/UL (4.70-6.10); RED CELL DISTRIBUTION WIDTH 12.8 % (11.6-14.8)
[2019-05-28 05:00] LABS: WHITE BLOOD COUNT 23.9 K/UL (4.8-10.8)
[2019-05-28 05:14] LABS: PHOSPHORUS 3.4 MG/DL (2.5-4.9)
[2019-05-28 05:24] LABS: ALANINE AMINOTRANSFERASE 61 U/L (12-78); ALBUMIN 2.8 G/DL (3.4-5.0); ALBUMIN/GLOBULIN RATIO 0.8 (1.0-2.7); ALKALINE PHOSPHATASE 68 U/L (46-116); ANION GAP 9 mmol/L (5-15); ASPARTATE AMINO TRANSFERASE 38 U/L (15-37); BILIRUBIN,TOTAL 0.4 MG/DL (0.2-1.0); BLOOD UREA NITROGEN 17 mg/dL (7-18); CALCIUM 8.6 MG/DL (8.5-10.1); CARBON DIOXIDE 27 MMOL/L (21-32); CHLORIDE 101 MMOL/L (98-107); CREATININE 0.9 MG/DL (0.55-1.30); POTASSIUM 3.7 MMOL/L (3.5-5.1); SODIUM 137 MMOL/L (136-145)
[2019-05-28] MEDS: Piperacillin/Tazobactam 3.375 GM in D5W 110 ML IVPB SCH (06:22)
[2019-05-28] MEDS: dilTIAZem HCl 30mg tab ORAL SCH (06:27)
[2019-05-28] MEDS: NovoLOG Insulin Flexpen SUBQ SCH (06:28)
[2019-05-28 08:00] VITALS: BP 119/67
[2019-05-28] MEDS: Docusate 100mg cap ORAL SCH (08:47)
[2019-05-28] MEDS: Aspirin Baby 81mg ORAL SCH (08:47)
[2019-05-28] MEDS: Simethicone 80mg tab ORAL SCH (08:47)
[2019-05-28] MEDS: Heparin 5000 units/ml inj SUBQ SCH (08:51)
[2019-05-28] MEDS ORDERED: Liothyronine 5mcg tab ORAL SCH (09:00)
--- NOTE | 2019-05-28 09:03 | General Progress Note ---
Assessment/Plan Assessment/Plan: 63 YO M with hx of narcolepsy, chronic back pain, hypothyroidism, and diabetes mellitus presenting with GLF and AMS after 2-day period of prolonged sleeping episode. In the ED, patient was found to be clinically dehydrated and the medical work up was suggestive of rhabdomyolysis (CK> 00001) and Leukocytosis (WBC: 71173) #Bacteremia - Staph coag neg #Leukocytosis #Left Lingular Infiltrate possible CAP #Lactic acidosis: resolved -CT chest w/left lingular infiltrate -WBC:27>>25>>17>>14.5>>16>>24>>23 -Influenza swab negative. -Blood culture x 2 with Staph epi -repeat BCx on 05/24: NGTD 24 hrs -TTE negative for vegetations -GI as per Cardiology recs -Continue abx per ID #Rhabdomyolysis #BETSY - resolved #Dehydration #Poor oral intake -Serum CK :81444>>6900>>2181>>1600>>1199 -s/p 3L of IV N.S in the ED. -Initially on 150cc/hr of IV N.S; then 75 cc/hr. -Off IV fluids -Encourage PO intake. -Strict I's and O's -Avoid nephrotoxins -Renal following #HTN #PVCs #Elevated troponin: downtrending -Likely 2/2 demand ischemia in the setting of severe dehydration. -Serum Troponin 0.375, 0.133, 0.059, EKG non-suggestive of any ST segment or T wave abnormalities. -Continuous cardiac monitoring. -contCoreg -hydralazine PRN for SBP >160 -Mg, Phos levels normal -Cardio following #GLF: -CT Head suggestive of left sided scalp hematoma; No evidence of intracranial bleed. -CT Chest/Abdomen/Pelvis non suggestive of any signs of intraabdominal bleed/ rib fracture -Brain and cervical MRI reviewed, brain MRI with mild atrophy, CT C-spine with C4-5 moderate central spinal stenosis and evidence of previous fusion -UDS positive for marijuana, opiates and amphetamines -PT/OT -fall precautions #type II DM: -HgbA1C 6.8 -Diabetic diet. -Insulin Sliding scale. #Hx of Narcolepsy: -MRI brain negative for acute process -Continue to monitor. -Avoid sedatives. -Fall precaution. -Neurology consulted: holding home Adderall while in-pt #Left Adrenal Adenoma -seen on CT abd -MRI abd with evidence of left adrenal adenoma -pt to f/u o/p w/PCP for repeat imaging in 6 months - 1 year #Hx of Depression: #Anxiety -Resume home medication. -ativan PRN #chronic back pain: -Resume home medication. -PT/OT #Hypothyroidism, TFTs reviewed suggesting hyperthyroid state -Levothyroxine held, to be started on 05/30 Electrolyte: Monitor and replete PRN Nutrition: Diabetic Diet. DVT PPX: SUb Q Heparin. Time spent on encounter: 36 mins, >50% on counseling, coordination of care. Subjective Allergies: Coded Allergies: No Known Allergies (Unverified , 05/22/19) Subjective Follow up for rhabdo, BETSY, Coag neg staph bacteremia WBC increased to 24K Objective Last 24 Hour Vital Signs Date Time Temp Pulse Resp B/P (MAP) Pulse Ox O2 Delivery O2 Flow Rate FiO2 05/28/19 08:00 97.8 110 17 119/67 (84) 97 05/28/19 06:27 107 130/80 05/28/19 00:00 98.5 107 18 130/80 (97) 95 05/27/19 21:29 111 119/96 05/27/19 21:00 Room Air Room Air 05/27/19 20:00 97.4 111 18 119/96 (104) 94 05/27/19 16:00 97.6 107 19 135/80 (98) 94 05/27/19 14:06 123/80 05/27/19 13:01 104 123/80 05/27/19 12:00 98.1 104 18 123/80 (94) 95 05/27/19 09:00 Room Air Room Air Intake and Output 05/27/19 05/28/19 19:00 07:00 Intake Total 1335.0 ml 600 ml Output Total 1800 ml Balance 1335.0 ml -1200 ml Intake Oral 600 ml IV Total 385.0 ml Other 950 ml Output Urine Total 1800 ml Laboratory Tests 05/27/19 09:00: White Blood Count 24.4*H, Red Blood Count 3.98L, Hemoglobin 11.5L, Hematocrit 33.6L, Mean Corpuscular Volume 84, Mean Corpuscular Hemoglobin 29.0, Mean Corpuscular Hemoglobin Concent 34.3, Red Cell Distribution Width 12.6, Platelet Count 365, Mean Platelet Volume 6.1L, Neutrophils (%) (Auto) , Lymphocytes (%) ( Auto) , Monocytes (%) (Auto) , Eosinophils (%) (Auto) , Basophils (%) (Auto) , Differential Total Cells Counted 100, Neutrophils % (Manual) 81H, Lymphocytes % (Manual) 11L, Monocytes % (Manual) 8, Eosinophils % (Manual) 0, Basophils % ( Manual) 0, Band Neutrophils 0, Platelet Estimate Adequate, Platelet Morphology Normal, Red Blood Cell Morphology Normal, Sodium Level 133L, Potassium Level 3.5 , Chloride Level 99, Carbon Dioxide Level 25, Anion Gap 9, Blood Urea Nitrogen 13, Creatinine 0.9, Estimat Glomerular Filtration Rate > 60, Glucose Level 229H , Calcium Level 8.5, Total Bilirubin 0.5, Aspartate Amino Transf (AST/SGOT) 43H , Alanine Aminotransferase (ALT/SGPT) 67, Alkaline Phosphatase 68, Total Creatine Kinase 574H, Troponin I 0.203H, Pro-B-Type Natriuretic Peptide 64035T, Total Protein 6.2L, Albumin 2.8L, Globulin 3.4, Albumin/Globulin Ratio 0.8L 05/27/19 12:25: Troponin I 0.162H 05/28/19 01:10: Vancomycin Level Trough 14.0H 05/28/19 04:00: White Blood Count 23.9*H, Red Blood Count 3.76L, Hemoglobin 11.1L, Hematocrit 32.0L, Mean Corpuscular Volume 85, Mean Corpuscular Hemoglobin 29.5, Mean Corpuscular Hemoglobin Concent 34.6, Red Cell Distribution Width 12.8, Platelet Count 380, Mean Platelet Volume 6.0L, Neutrophils (%) (Auto) , Lymphocytes (%) ( Auto) , Monocytes (%) (Auto) , Eosinophils (%) (Auto) , Basophils (%) (Auto) , Neutrophils % (Manual) [Pending], Lymphocytes % (Manual) [Pending], Platelet Estimate [Pending], Platelet Morphology [Pending], Sodium Level 137, Potassium Level 3.7, Chloride Level 101, Carbon Dioxide Level 27, Anion Gap 9, Blood Urea Nitrogen 17, Creatinine 0.9, Estimat Glomerular Filtration Rate > 60, Glucose Level 124#H, Calcium Level 8.6, Total Bilirubin 0.4, Aspartate Amino Transf (AST /SGOT) 38H, Alanine Aminotransferase (ALT/SGPT) 61, Alkaline Phosphatase 68, Total Protein 6.3L, Albumin 2.8L, Globulin 3.5, Albumin/Globulin Ratio 0.8L, Phosphorus Level 3.4, Magnesium Level 2.1, Folate 22.1 Height (Feet): 5 Height (Inches): 7.00 Weight (Pounds): 225 General Appearance: alert Neck: normal alignment, supple Respiratory/Chest: lungs clear, normal breath sounds Abdomen: non tender, soft Ander Dye MD May 28, 2019 09:03
[2019-05-28] MEDS ORDERED: LORazepam 1mg tab ORAL PRN (10:00)
--- NOTE | 2019-05-28 10:07 | Nephrology Progress Note ---
Assessment/Plan Problem List: (1) BETSY (acute kidney injury) (2) Rhabdomyolysis Assessment: Dehydration (3) Narcolepsy (4) Diabetes Assessment: Presents with hyperglycemia (5) Hypothyroidism Assessment: The thyroid function tests not indicative of hyperthyroidism Assessment Acute kidney injury, Rhabdomyolysis, Dehydration, Diabetes mellitus type 2 with blood sugar out of control, Chronic pain, substance abuse, Urine positive for amphetamine, opiates, marijuana, Hypothyroidism, Narcolepsy, Plan Plan: White blood cells count keep rising Hold Synthroid 300 mcg/day and cut it down to 100 mcg starting May 29-as thyroid function tests indicates Stop IV hydration now Changed Norvasc to Cardizem Since white BCs are rising and patient is bacteremic GI to be considered Check thyroid function tests as the patient is on thyroid supplements and is tachycardic Correct abnormal electrolytes, oral potassium supplements at this time Monitor CPK and renal parameters both are improving Oral folic acid Keep the blood sugar and blood pressure in check Stool softener Protonix p.o. 2D echocardiogram Flomax at bedtime Per orders Subjective ROS Limited/Unobtainable: No Constitutional: Reports: malaise Objective Objective Last 24 Hour Vital Signs Date Time Temp Pulse Resp B/P (MAP) Pulse Ox O2 Delivery O2 Flow Rate FiO2 05/28/19 08:00 97.8 110 17 119/67 (84) 97 05/28/19 06:27 107 130/80 05/28/19 00:00 98.5 107 18 130/80 (97) 95 05/27/19 21:29 111 119/96 05/27/19 21:00 Room Air Room Air 05/27/19 20:00 97.4 111 18 119/96 (104) 94 05/27/19 16:00 97.6 107 19 135/80 (98) 94 05/27/19 14:06 123/80 05/27/19 13:01 104 123/80 05/27/19 12:00 98.1 104 18 123/80 (94) 95 Intake and Output 05/27/19 05/28/19 19:00 07:00 Intake Total 1335.0 ml 600 ml Output Total 1800 ml Balance 1335.0 ml -1200 ml Intake Oral 600 ml IV Total 385.0 ml Other 950 ml Output Urine Total 1800 ml Laboratory Tests 05/27/19 12:25: Troponin I 0.162H 05/28/19 01:10: Vancomycin Level Trough 14.0H 05/28/19 04:00: White Blood Count 23.9*H, Red Blood Count 3.76L, Hemoglobin 11.1L, Hematocrit 32.0L, Mean Corpuscular Volume 85, Mean Corpuscular Hemoglobin 29.5, Mean Corpuscular Hemoglobin Concent 34.6, Red Cell Distribution Width 12.8, Platelet Count 380, Mean Platelet Volume 6.0L, Neutrophils (%) (Auto) , Lymphocytes (%) ( Auto) , Monocytes (%) (Auto) , Eosinophils (%) (Auto) , Basophils (%) (Auto) , Differential Total Cells Counted 100, Neutrophils % (Manual) 71, Lymphocytes % ( Manual) 18L, Monocytes % (Manual) 11H, Eosinophils % (Manual) 0, Basophils % ( Manual) 0, Band Neutrophils 0, Platelet Estimate Adequate, Platelet Morphology Normal, Hypochromasia 1+, Anisocytosis 1+, Sodium Level 137, Potassium Level 3.7 , Chloride Level 101, Carbon Dioxide Level 27, Anion Gap 9, Blood Urea Nitrogen 17, Creatinine 0.9, Estimat Glomerular Filtration Rate > 60, Glucose Level 124#H , Calcium Level 8.6, Phosphorus Level 3.4, Magnesium Level 2.1, Total Bilirubin 0.4, Aspartate Amino Transf (AST/SGOT) 38H, Alanine Aminotransferase (ALT/SGPT) 61, Alkaline Phosphatase 68, Total Protein 6.3L, Albumin 2.8L, Globulin 3.5, Albumin/Globulin Ratio 0.8L, Folate 22.1 Height (Feet): 5 Height (Inches): 7.00 Weight (Pounds): 225 General Appearance: no apparent distress Objective No change Delta Boswell MD May 28, 2019 10:07
[2019-05-28 10:23] LABS: CREATINE KINASE 394 U/L (26-308)
[2019-05-28] MEDS ORDERED: NS 275ml ONE (10:52)
[2019-05-28] MEDS ORDERED: Tubing IV Secondary IV ONE ×2 (10:52)
[2019-05-28] MEDS ORDERED: 1/2 NS 1000ml IV ONE ×2 (10:52)
--- NOTE | 2019-06-05 08:23 | Discharge Summary ---
Discharge Summary Hospital Course Date of Admission May 22, 2019 at 22:05 Date of Discharge May 28, 2019 at 10:53 Admitting Diagnosis AMS HPI Elijah Gusman is a 63 year old male who was admitted on May 22, 2019 at 22 :05 for Altered Mental Status Consultations ID,Nephrology,Neurology,Cardiology Procedures None Hospital Course 63 YO M with hx of narcolepsy, chronic back pain, hypothyroidism, and diabetes mellitus presenting with GLF and AMS after 2-day period of prolonged sleeping episode. In the ED, patient was found to be clinically dehydrated and the medical work up was suggestive of rhabdomyolysis (CK> 87071) and Leukocytosis (WBC: 61423) He was admitted to the medical service for BETSY, dehydration, rhabdo, lactic acidosis and ground level fall. [employer] imaging including CT head and MRI brain were negative. He was treated with IV hydration, found to have Staph epi bacteremia and possible CAP, treated with IV abx as per ID recs. On 05/27 patient left AMA to go to another hospital, I was not informed and therefore was not able to talk to him to discuss rsiks and benefits. Dischareg Diagnoses: #Bacteremia - Staph coag neg #Leukocytosis #Left Lingular Infiltrate possible CAP #Lactic acidosis: resolved #Rhabdomyolysis #BETSY - resolved #Dehydration #Poor oral intake #HTN #PVCs #Elevated troponin: downtrending #GLF: #type II DM: #Hx of Narcolepsy: #Left Adrenal Adenoma #Hx of Depression: #Anxiety #chronic back pain: #Hypothyroidism, TFTs reviewed suggesting hyperthyroid state Time spent on encounter: 36 mins, >50% on counseling, coordination of care. Discharge Discharge Vital Signs Last Vital Signs Date Time Temp Pulse Resp B/P (MAP) Pulse Ox O2 Delivery O2 Flow Rate FiO2 05/28/19 08:00 97.8 110 17 119/67 (84) 97 05/27/19 21:00 Room Air Room Air Discharge Disposition Patient left AMA Discharge Diagnoses: (1) BETSY (acute kidney injury) Ander Dye MD Jun 05, 2019 08:23
== END 2019-05-28 10:53 | disposition left against medical advice (07) | DRG 871 ==
LOC: EDBD 21:00 → EMR 21:47 → 2W 22:05 → EDBEDREQ 22:15 → EDBEDREQSVC 22:15 → EDBEDREQ 23:14 → 2E 05-24 05:18 → 4E 05-27 02:00
DX: A41.2 Sepsis due to unspecified staphylococcus (principal); J18.9 Pneumonia, unspecified organism; N17.9 Acute kidney failure, unspecified; M62.82 Rhabdomyolysis; I24.8 Other forms of acute ischemic heart disease; I47.1 Supraventricular tachycardia; E87.2 Acidosis; Z53.29 Procedure and treatment not carried out because of patient's decision for other reasons; L89.899 Pressure ulcer of other site, unspecified stage; L89.629 Pressure ulcer of left heel, unspecified stage; L89.229 Pressure ulcer of left hip, unspecified stage; I10 Essential (primary) hypertension; E03.9 Hypothyroidism, unspecified; E11.65 Type 2 diabetes mellitus with hyperglycemia; S51.012A Laceration without foreign body of left elbow, initial encounter; S51.811A Laceration without foreign body of right forearm, initial encounter; W18.39XA Other fall on same level, initial encounter; Y92.009 Unspecified place in unspecified non-institutional (private) residence as the place of occurrence of the external cause; Y99.8 Other external cause status; F15.90 Other stimulant use, unspecified, uncomplicated; F11.90 Opioid use, unspecified, uncomplicated; F12.90 Cannabis use, unspecified, uncomplicated; F41.9 Anxiety disorder, unspecified; F32.9 Major depressive disorder, single episode, unspecified; S00.03XA Contusion of scalp, initial encounter; G89.29 Other chronic pain; M54.9 Dorsalgia, unspecified; G47.419 Narcolepsy without cataplexy; D35.02 Benign neoplasm of left adrenal gland; E86.0 Dehydration; D72.829 Elevated white blood cell count, unspecified; Z98.1 Arthrodesis status
CPT/HCPCS: 36415; 70450; 70551; 71045; 71250; 72141; 74176; 74181; 80048; 80053; 80061; 80202; 80307; 81003; 82140; 82550; 82553; 82607; 82746; 82962; 82977; 83036; 83605; 83735; 83880; 84100; 84439; 84443; 84481; 84484; 84550; 85007; 85025; 85610; 85730; 86140; 86710; 87040; 87081; 87181; 93005; 93306; 93970; 96361; 96365; 96368; 99291; C9399; G0480; J1815; J2405; J7030; J8499